=== PATIENT | female | born 1960 | race Caucasian/White ===

== ENCOUNTER 2018-08-10 09:58 | Outpatient (RCR) | payer MEDICAID, SELFPAY ==
[2018-08-10] MEDS: Normal Saline Flush 10 ML SYR IVP (09:55)
[2018-08-10 10:28] LABS: Absolute Basophil Count 0.02 k/cumm (0.0-0.2); Absolute Eosinophil Count 0.08 k/cumm (0.0-0.7); Absolute Lymphocyte Count 1.19 k/cumm (1.2-3.4); Absolute Monocyte Count 0.48 k/cumm (0.11-0.7); Absolute Neutrophil Count 3.82 k/cumm (1.2-6.7); Basophils % 0.4; Eosinophils % 1.4; HCT 33.3 % (36.0-46.0); Lymphocytes % 21.3; Mean Corpuscular Hemoglobin 34.2 pg (27.0-33.0); Mean Corpuscular Volume 103.4 fL (80-95); Mean Platelet Volume 8.3 fL (8.0-11.0); Monocytes % 8.6; Neutrophils % 68.3; Platelet Count 284 x1000/uL (130-400); RBC 3.22 m/cumm (4.00-5.20); RBC Distribution Width 13.2 % (11.7-14.6); White Blood Cell Count 5.59 k/cumm (4.4-10.8)
[2018-08-10 10:41] LABS: ALT 35 U/L (12-78); AST 24 U/L (15-37); Albumin 3.9 g/dL (3.4-5.0); Alkaline Phosphatase 100 U/L (46-116); Anion Gap 8.4 mmol/L (3-11); BUN 14 mg/dL (7-18); Bilirubin, Total 0.4 mg/dL (0.2-1.0); CO2 27.6 mmol/L (21.0-32.0); CREATININE 0.97 mg/dL (0.55-1.02); Calcium 9.4 mg/dL (8.5-10.1); Chloride 106 mmol/L (98-107); Estimated GFR 58.98 (mL/min/1.73m2); Glucose 138 mg/dL (70-100); LDH 179 U/L (81-234); Potassium 3.5 mmol/L (3.5-5.1); Sodium 142 mmol/L (136-145); Total Protein 7.8 g/dL (6.4-8.2)
== END 2018-08-28 23:59 | disposition home or self-care (01) ==
LOC: INF 09:58
PROVIDERS: PCP Nurse Practitioner Gerontology; Visit Provider Internal Medicine Hematology & Oncology
DX: C83.18 Mantle cell lymphoma, lymph nodes of multiple sites (principal); C83.10 Mantle cell lymphoma, unspecified site; Z45.2 Encounter for adjustment and management of vascular access device
CPT/HCPCS: 36591; 80053; 83615; 85025

== ENCOUNTER 2018-08-30 18:53 | Emergency (ER) | payer MEDICAID, SELFPAY ==
[2018-08-30 19:03] VITALS: BP 154/84; PULSE 109; RESP 16; TEMP 36.6; O2SAT 98
[2018-08-30 19:12] LABS: Bilirubin Negative (Negative); Blood Trace-intact (Negative); Clarity Clear; Glucose Negative (Negative); Ketones Negative (Negative); Leukocyte Esterase Small (Negative); Nitrite Negative (Negative); Urobilinogen 0.2 EU/dL (Up TO 0.2)
[2018-08-30] MEDS: Normal Saline 1,000 ML 1000 ML IV (19:26)
--- NOTE | 2018-08-30 19:26 | ED.GENADUL_ITS ---
Discharge Plan Disposition Patient Disposition: HOME Condition: Good Discharge Details Chief Complaint: Urinary Clinical Impression: Acute UTI Primary Care Provider: Paula Patel ED Provider: Micheal Roth Home Meds and New Rx's Prescriptions: New cephalexin [Keflex] 500 mg capsule 500 mg PO BID Qty: 14 RF: 0 No Action bupropion HCl [Wellbutrin XL] 150 mg tablet extended release 24 hr 300 mg PO QAM Qty: 90 RF: 3 multivitamin [Multi-Day] 1 EACH tablet 1 ea PO DAILY RF: 0 acetaminophen [Tylenol Extra Strength] 500 MG tablet 1,000 mg PO daily prn RF: 0 ibuprofen 600 MG tablet 600 mg PO BID prn Qty: 100 RF: 4 melatonin 3 MG tablet,disintegrating 3 mg PO PRN RF: 0 ondansetron [Zofran ODT] 4 MG tablet,disintegrating 4 mg Sublingual PRN PRNRF: 0 acyclovir 400 MG tablet 800 mg PO BID RF: 0 Discharge Instructions Instructions: Urinary Tract Infection in Women (ED) Additional Instructions: Please take the antibiotic as directed. If you notice any worsening of your symptoms, or any new symptoms such as vomiting, diarrhea, fever, chills, shortness of breath, chest pain, numbness, weakness, or fainting , please return immediately to the emergency department for reevaluation. Please follow up with your primary care provider as soon as possible for reassessment and reevaluation. As always, it was a pleasure participating in your medical care today. Referrals: Paula Patel, ANALYTICS LEAD [Primary Care Provider] - Medical Decision Making This is a pleasant 58-year-old female with a past medical history of non-Hodgkin's mantle lymphoma, as well as Rituxan use every 2 months, most recent administration was 2-3 weeks ago. She presents today with urinary frequency. She called her oncologist, and he recommended that she go to an urgent care or her primary care provider tomorrow. However the patient is flying to [place] tomorrow and she felt it would be best to receive care now. Patient denies any systemic symptoms of fever or chills. No flank pain or abdominal pain. She does admit to mild burning and dysuria. She has been neutropenic in the past but not recently. Her heart rate is minimally elevated at 109, however this patient states multiple times that this is a normal baseline. We will get a basic laboratory workup to evaluate for any potential neutropenia, rehydrate her, and evaluate for urinary tract infection. 8:01 PM The patient's urinalysis shows evidence of mild urinary tract infection. Signs and symptoms are not consistent with pyelonephritis. Laboratory workup demonstrates no significant white count, no evidence of bandemia, and no evidence of neutropenia. Her symptoms are well controlled. She has been given a gram of Rocephin here in the emergency department. She will be given Keflex for home use, and 1 pill here for the morning. We discussed red flags for which to return the patient understands. I have extensively reviewed the treatment plan and discharge instructions with the patient. I have addressed all patient concerns at this time. The patient was made aware of what symptoms to monitor for that would warrant a return to the emergency department. Discussed the plan with the patient, they demonstrate verbal understanding and agreement with our assessment and plan at this time. HPI General Date/Time Provider Initiated Documentation: 08/30/18 18:54 . HPI Narrative: This is a 58-year-old female with a past medical history of non-Hodgkin's mantle lymphoma. She takes Rituxan every 2 months, most recent time was 2-3 weeks ago. Past surgical history is positive for colostomy secondary to diverticulitis and subsequent reversal, tonsillectomy, and alpha-1 antitrypsin deficiency. She presents today for urinary frequency and urgency for the last 2 days. She admits to minimal dysuria. She denies any hematuria but states that she has a chronic history of hematuria which is microscopic, she has been followed up and evaluated multiple times by urology with no significant abnormalities. Patient denies any history of recent kidney stones, flank pain, nausea vomiting or diarrhea. She denies any fevers, chills or systemic symptoms. She denies any recent antibiotic use. In the distant past she has had neutropenia but she states that her labs have been very good over the last few months. Patient has no other complaints at this time. Related Data Home Medications Medication Instructions Recorded Confirmed multivitamin [Multi-Day] 1 ea PO DAILY 05/31/14 08/30/18 acetaminophen [Tylenol Extra 1,000 mg PO daily prn tab-cap 12/13/14 08/30/18 Strength] ibuprofen 600 mg PO BID prn #100 tab-cap 06/07/17 08/30/18 ondansetron [Zofran ODT] 4 mg SUBLINGUAL PRN PRN 08/08/17 08/30/18 melatonin 3 mg PO PRN 12/13/17 08/30/18 bupropion HCl XL 150 mg 24 hr 300 mg PO QAM #90 tab 08/25/18 08/30/18 tablet, extended release acyclovir 800 mg PO BID 08/30/18 08/30/18 cephalexin [Keflex] 500 mg PO BID #14 cap 08/30/18 Previous Rx's Medication Instructions Recorded bupropion HCl XL 150 mg 24 hr 300 mg PO QAM #90 tab 08/25/18 tablet, extended release cephalexin [Keflex] 500 mg PO BID #14 cap 08/30/18 Allergies Allergy/AdvReac Type Severity Reaction Status Date / Time doxycycline AdvReac Intermediate Upset Unverified 08/30/18 19:02 Stomach General Stated Complaint: Urinary ERIKA: 4 Review of Systems Review of Systems All systems reviewed & are unremarkable except as noted in HPI and below PFSH Family History Mother Hirgm-0-gegbbecquji deficiency Father Essential hypertension Hyperlipidemia Grandfather Kwcjr-8-vfzcdchnadz deficiency Grandfather Essential hypertension Personal history of malignant neoplasm Heart disease Cerebrovascular accident Grandmother Essential hypertension Heart disease Cerebrovascular accident Grandmother No problems noted. 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 pets and animals: Yes pets and animals: cat(s) and dog(s) Smoking/Tobacco Use Status: Former Tobacco Use alcohol intake: current alcohol intake frequency: a few times a month substance use type: does not use richard/orthodoxy: Orthodoxy special richard needs: No Surgical History Arthroplasty of knee (~02/2006) Bursectomy Colonoscopy - IV Sedation (06/08/16) Incision & Drainage, Abscess or Hematoma (09/23/17) Tonsillectomy and adenoidectomy (06/03/17) Exam Narrative Exam Narrative: 1.Const: Well-nourished, Well-developed, appearing stated age 2.Eyes: PERRL, no conjunctival injection, and symmetrical lids. 3.ENT: Atraumatic external nose and ears. Moist MM. Neck: Symmetric, trachea midline, No thyromegaly. 4.CVS: +S1/S2, No murmurs or gallops. Peripheral pulses 2+ and equal in all extremities. Brisk capillary refill in all extremities. 5.RESP: Unlabored respiratory effort. Clear to auscultation bilaterally. No wheezes rales or rhonchi 6.GI: Soft, Nontender/Nondistended, No hepatosplenomegaly. No guarding or rebound. No flank tenderness, no guarding or rebound. No pelvic or bladder tenderness. 7.MSK: Normocephalic/Atraumatic, Extremities w/o deformity or ttp No cyanosis or clubbing, Normal movement of all extremities 8.Skin: Warm, Dry. No rashes or lesions. 9.Neuro: rangeland management specialist II-XII grossly intact. Sensation grossly intact, no focal neurologic deficits. 10.Psych: (AAO) x3. Appropriate mood and affect Course Vital Signs Temperature 36.6 C 08/30/18 19:03 Pulse 109 H 08/30/18 19:03 Respiratory Rate 16 08/30/18 19:03 Blood Pressure 154/84 H 08/30/18 19:03 Pulse Oximetry 98 08/30/18 19:03 Temperature 36.6 C 08/30/18 19:03 Temperature Source Temporal Artery Scan 08/30/18 19:03 Pulse 109 H 08/30/18 19:03 Respiratory Rate 16 08/30/18 19:03 Respiratory Effort 08/30/18 19:07 Blood Pressure 154/84 H 08/30/18 19:03 Blood Pressure Position Sitting 08/30/18 19:03 Pulse Oximetry 98 08/30/18 19:03 Oxygen Delivery Method Room Air 08/30/18 19:03 Oxygen Flow Rate 0 08/30/18 19:03 Pain Level 0 08/30/18 19:08 Lab/Test Results Lab/Test Results: Laboratory Tests Range/Units 08/30/18 18:59 Urine Color (Yellow) Yellow Urine Clarity Clear Urine pH (5-8) 7.0 Ur Specific Spruce (1.005-1.025) 1.020 Urine Protein (Negative) mg/dL 30 H Urine Ketones (Negative) mg/dL Negative Urine Blood (Negative) Trace-intact H Urine Nitrite (Negative) Negative Urine Bilirubin (Negative) Negative Urine Urobilinogen (Up TO 0.2) EU/dL 0.2 Ur Leukocyte Esterase (Negative) Small H Urine Glucose (Negative) mg/dL Negative
[2018-08-30 19:27] LABS: Absolute Basophil Count 0.03 k/cumm (0.0-0.2); Absolute Eosinophil Count 0.11 k/cumm (0.0-0.7); Absolute Lymphocyte Count 1.73 k/cumm (1.2-3.4); Absolute Neutrophil Count 4.08 k/cumm (1.2-6.7); Basophils % 0.4; Eosinophils % 1.6; HCT 33.6 % (36.0-46.0); HGB 11.2 g/dL (12.0-15.5); Lymphocytes % 25.6; Mean Corp. HGB Concentration 33.3 g/dL (32.0-36.0); Mean Corpuscular Hemoglobin 34.7 pg (27.0-33.0); Mean Platelet Volume 8.2 fL (8.0-11.0); Monocytes % 11.9; Neutrophils % 60.5; Platelet Count 272 x1000/uL (130-400); RBC 3.23 m/cumm (4.00-5.20); RBC Distribution Width 12.6 % (11.7-14.6); White Blood Cell Count 6.75 k/cumm (4.4-10.8)
[2018-08-30 19:49] LABS: C & S Indicated? Yes
[2018-08-30 20:09] LABS: ALT 42 U/L (12-78); AST 28 U/L (15-37); Alkaline Phosphatase 100 U/L (46-116); Anion Gap 7.4 mmol/L (3-11); BUN 15 mg/dL (7-18); Bilirubin, Total 0.3 mg/dL (0.2-1.0); CO2 29.6 mmol/L (21.0-32.0); CREATININE 1.01 mg/dL (0.55-1.02); Calcium 9.6 mg/dL (8.5-10.1); Chloride 102 mmol/L (98-107); Glucose 99 mg/dL (70-100); Potassium 3.5 mmol/L (3.5-5.1); Sodium 139 mmol/L (136-145); Total Protein 7.8 g/dL (6.4-8.2)
[2018-08-30] MEDS: Cephalexin 500 MG CAP PO (20:59)
[2018-08-30 21:04] VITALS: BP 155/92; PULSE 104; RESP 18; TEMP 36.8; O2SAT 98
== END 2018-08-30 21:07 | disposition home or self-care (01) ==
PROVIDERS: Emergency Provider Student in an Organized Health Care Education/Training Program; PCP Nurse Practitioner Gerontology
DX: R39.0 Extravasation of urine (principal); C83.10 Mantle cell lymphoma, unspecified site; Z79.899 Other long term (current) drug therapy; I10 Essential (primary) hypertension
CPT/HCPCS: 36415; 80053; 96361; 96365; 99284; 81003; 81015; 85025; 87086; J0696

== ENCOUNTER 2018-10-19 08:00 | Outpatient (RCR) | payer MEDICAID, SELFPAY ==
[2018-10-19] MEDS: Normal Saline Flush 10 ML SYR IVP (08:30)
[2018-10-19 08:36] LABS: Abs Immature Grans 0.01 k/cumm (0.0-0.09); Absolute Basophil Count 0.02 k/cumm (0.0-0.2); Absolute Eosinophil Count 0.18 k/cumm (0.0-0.7); Absolute Lymphocyte Count 1.06 k/cumm (1.2-3.4); Absolute Monocyte Count 0.76 k/cumm (0.11-0.7); Absolute Neutrophil Count 3.65 k/cumm (1.2-6.7); Basophils % 0.4; Eosinophils % 3.2; HCT 34.9 % (36.0-46.0); HGB 11.7 g/dL (12.0-15.5); Immature Grans % 0.2; Lymphocytes % 18.7; Mean Corp. HGB Concentration 33.5 g/dL (32.0-36.0); Mean Corpuscular Hemoglobin 34.1 pg (27.0-33.0); Mean Corpuscular Volume 101.7 fL (80-95); Mean Platelet Volume 8.4 fL (8.0-11.0); Monocytes % 13.4; Neutrophils % 64.1; Platelet Count 238 x1000/uL (130-400); RBC 3.43 m/cumm (4.00-5.20); RBC Distribution Width 12.7 % (11.7-14.6); White Blood Cell Count 5.68 k/cumm (4.4-10.8)
[2018-10-19 08:47] LABS: ALT 44 U/L (12-78); AST 27 U/L (15-37); Albumin 3.9 g/dL (3.4-5.0); Alkaline Phosphatase 100 U/L (46-116); Anion Gap 8.3 mmol/L (3-11); BUN 16 mg/dL (7-18); Bilirubin, Total 0.4 mg/dL (0.2-1.0); CO2 27.7 mmol/L (21.0-32.0); CREATININE 0.91 mg/dL (0.55-1.02); Calcium 9.6 mg/dL (8.5-10.1); Chloride 104 mmol/L (98-107); Glucose 110 mg/dL (70-100); LDH 166 U/L (81-234); Potassium 3.9 mmol/L (3.5-5.1); Sodium 140 mmol/L (136-145); Total Protein 7.7 g/dL (6.4-8.2)
== END 2018-10-28 23:59 | disposition home or self-care (01) ==
LOC: INF 08:00
PROVIDERS: PCP Nurse Practitioner Gerontology; Visit Provider Internal Medicine Hematology & Oncology
DX: C83.10 Mantle cell lymphoma, unspecified site (principal); R31.29 Other microscopic hematuria; R79.9 Abnormal finding of blood chemistry, unspecified; Z45.2 Encounter for adjustment and management of vascular access device
CPT/HCPCS: 36591; 80053; 83615; 85025

== ENCOUNTER 2018-12-14 01:41 | Outpatient (RCR) | payer MEDICAID, SELFPAY ==
[2018-12-14] MEDS: Normal Saline Flush 10 ML SYR IVP (09:15)
[2018-12-14 09:36] LABS: Abs Immature Grans 0.02 k/cumm (0.0-0.09); Absolute Basophil Count 0.03 k/cumm (0.0-0.2); Absolute Eosinophil Count 0.11 k/cumm (0.0-0.7); Absolute Lymphocyte Count 1.53 k/cumm (1.2-3.4); Absolute Monocyte Count 0.67 k/cumm (0.11-0.7); Absolute Neutrophil Count 4.12 k/cumm (1.2-6.7); Basophils % 0.5; Eosinophils % 1.7; HCT 37.1 % (36.0-46.0); HGB 12.6 g/dL (12.0-15.5); Immature Grans % 0.3; Lymphocytes % 23.6; Mean Corpuscular Hemoglobin 34.2 pg (27.0-33.0); Mean Corpuscular Volume 100.8 fL (80-95); Mean Platelet Volume 8.4 fL (8.0-11.0); Monocytes % 10.3; Neutrophils % 63.6; Platelet Count 315 x1000/uL (130-400); RBC 3.68 m/cumm (4.00-5.20); RBC Distribution Width 12.7 % (11.7-14.6); White Blood Cell Count 6.48 k/cumm (4.4-10.8)
[2018-12-14 09:52] LABS: ALT 33 U/L (12-78); AST 23 U/L (15-37); Albumin 3.5 g/dL (3.4-5.0); Alkaline Phosphatase 104 U/L (46-116); Anion Gap 12.4 mmol/L (3-11); BUN 21 mg/dL (7-18); Bilirubin, Total 0.4 mg/dL (0.2-1.0); CO2 26.6 mmol/L (21.0-32.0); CREATININE 1.18 mg/dL (0.55-1.02); Calcium 9.9 mg/dL (8.5-10.1); Chloride 102 mmol/L (98-107); Estimated GFR 47.05 (mL/min/1.73m2); Glucose 116 mg/dL (70-100); LDH 197 U/L (81-234); Sodium 141 mmol/L (136-145); Total Protein 8.1 g/dL (6.4-8.2)
== END 2018-12-29 23:59 | disposition home or self-care (01) ==
LOC: INF 01:41
PROVIDERS: PCP Nurse Practitioner Gerontology; Visit Provider Internal Medicine Hematology & Oncology
DX: C83.10 Mantle cell lymphoma, unspecified site (principal); R31.29 Other microscopic hematuria; R79.9 Abnormal finding of blood chemistry, unspecified; Z45.2 Encounter for adjustment and management of vascular access device
CPT/HCPCS: 36591; 80053; 83615; 85025

== ENCOUNTER 2019-01-11 01:57 | Outpatient (RCR) | payer OTHER, SELFPAY ==
[2019-01-11] MEDS: Normal Saline Flush 10 ML SYR IVP (14:05)
[2019-01-11] MEDS: Heparin 500 UNITS/5 ML SYRINGE IV (14:05)
== END 2019-01-26 23:59 | disposition home or self-care (01) ==
LOC: INF 01:57
PROVIDERS: PCP Nurse Practitioner Family; Visit Provider Internal Medicine Hematology & Oncology
DX: Z45.2 Encounter for adjustment and management of vascular access device (principal)
CPT/HCPCS: 96523

== ENCOUNTER 2019-02-08 16:08 | Outpatient (REF) | payer OTHER, SELFPAY ==
[2019-02-08 21:23] LABS: Bilirubin Negative (Negative); Blood Trace-intact (Negative); Clarity Clear; Glucose Negative (Negative); Ketones Negative (Negative); Leukocyte Esterase Negative (Negative); Nitrite Negative (Negative); Specific Gravity 1.025 (1.005-1.025); Urobilinogen 0.2 EU/dL (Up TO 0.2); pH 6.5 (5-8)
[2019-02-08 21:56] LABS: Bacteria Few HPF (Negative); Casts Negative LPF (Negative); Crystals Negative HPF (Negative); Epithelial Cells Negative HPF (Negative); Mucus Negative (Negative); Other Cells Negative (Negative); WBC Negative HPF (0-5)
[2019-02-08 21:57] LABS: C & S Indicated? No
== END 2019-02-08 16:28 ==
LOC: LBN 16:08
PROVIDERS: PCP Nurse Practitioner Family; Visit Provider Nurse Practitioner Family
DX: R31.9 Hematuria, unspecified (principal)
CPT/HCPCS: 81003; 81015

== ENCOUNTER 2019-02-16 13:30 | Outpatient (RCR) | payer OTHER, SELFPAY ==
[2019-02-15] MEDS: Normal Saline Flush 10 ML SYR IVP (08:40)
[2019-02-15 09:12] LABS: Absolute Basophil Count 0.02 k/cumm (0.0-0.2); Absolute Eosinophil Count 0.05 k/cumm (0.0-0.7); Absolute Lymphocyte Count 1.23 k/cumm (1.2-3.4); Absolute Monocyte Count 0.47 k/cumm (0.11-0.7); Absolute Neutrophil Count 2.62 k/cumm (1.2-6.7); Basophils % 0.5; Eosinophils % 1.1; HCT 37.7 % (36.0-46.0); HGB 12.5 g/dL (12.0-15.5); Mean Corp. HGB Concentration 33.2 g/dL (32.0-36.0); Mean Corpuscular Hemoglobin 33.3 pg (27.0-33.0); Mean Corpuscular Volume 100.5 fL (80-95); Mean Platelet Volume 8.7 fL (8.0-11.0); Monocytes % 10.7; Neutrophils % 59.7; Platelet Count 253 x1000/uL (130-400); RBC 3.75 m/cumm (4.00-5.20); RBC Distribution Width 12.7 % (11.7-14.6); White Blood Cell Count 4.39 k/cumm (4.4-10.8)
[2019-02-15 09:24] LABS: Hemoglobin A1C 5.9 % (4.5-6.2)
[2019-02-15 09:37] LABS: ALT 38 U/L (12-78); AST 25 U/L (15-37); Albumin 3.9 g/dL (3.4-5.0); Alkaline Phosphatase 103 U/L (46-116); Anion Gap 8.1 mmol/L (3-11); BUN 22 mg/dL (7-18); Bilirubin, Total 0.4 mg/dL (0.2-1.0); CO2 27.9 mmol/L (21.0-32.0); CREATININE 1.04 mg/dL (0.55-1.02); Calcium 9.3 mg/dL (8.5-10.1); Chloride 106 mmol/L (98-107); Cholesterol 222 mg/dL (50-200); Estimated GFR 54.43 (mL/min/1.73m2); Glucose 94 mg/dL (70-100); HDL Cholesterol 59 mg/dL (40-60); LDL CHOLESTEROL 136 mg/dL (<100); Potassium 4.1 mmol/L (3.5-5.1); Sodium 142 mmol/L (136-145); Total Protein 7.5 g/dL (6.4-8.2); Triglyceride 138 mg/dL (30-150)
[2019-02-15 09:52] LABS: FREE T4 0.83 ng/dL (0.76-1.46); LDH 169 U/L (81-234)
[2019-02-16] MEDS: Heparin 500 UNITS/5 ML SYRINGE IV (14:00)
[2019-02-16] MEDS: Normal Saline Flush 10 ML SYR IVP (14:00)
== END 2019-02-26 23:59 | disposition home or self-care (01) ==
LOC: INF 13:30
PROVIDERS: PCP Nurse Practitioner Family; Visit Provider Internal Medicine Hematology & Oncology
DX: C83.10 Mantle cell lymphoma, unspecified site (principal); R31.29 Other microscopic hematuria; R79.9 Abnormal finding of blood chemistry, unspecified; E78.5 Hyperlipidemia, unspecified; Z45.2 Encounter for adjustment and management of vascular access device; R31.9 Hematuria, unspecified
CPT/HCPCS: 36591; 80053; 80061; 83721; 96523; 81003; 81015; 83036; 83615; 84439; 84443; 85025

== ENCOUNTER 2019-02-20 15:37 | Outpatient (REF) | payer OTHER, SELFPAY ==
[2019-02-20 18:33] LABS: Bilirubin Negative (Negative); Blood Negative (Negative); Clarity Clear; Glucose Negative (Negative); Ketones Negative (Negative); Leukocyte Esterase Negative (Negative); Nitrite Negative (Negative); Specific Gravity 1.015 (1.005-1.025); Urobilinogen 0.2 EU/dL (Up TO 0.2)
== END 2019-02-20 15:57 ==
LOC: LBN 15:37
PROVIDERS: PCP Nurse Practitioner Family; Visit Provider Nurse Practitioner Family
DX: R31.29 Other microscopic hematuria (principal)
CPT/HCPCS: 81003; 87086

== ENCOUNTER 2019-03-01 03:38 | Outpatient (CLI) | payer OTHER, SELFPAY ==
--- NOTE | 2019-03-01 11:58 | DI.MAMMO_ITS ---
SYMPTOM/DIAGNOSIS: MAMMOGRAMS: Mammograms were interpreted according to the usual protocol including computer analysis with CAD system, tomosynthesis and C view imaging. The breast tissue is of moderate radiodensity. There is no evidence of a right or left breast mass. There are no suspicious calcifications. A radiodensity projected over the superior portion of the right breast is presumed to represent a prominent lymph node. SUMMARY: No evidence of malignancy, Category I, yearly screening mammography is recommended. Breast density Category B. MQSA ASSESSMENT OF FINDINGS: Negative. Category 1. Patient will receive a letter notifying them of these results. BI-RADS category B. There are scattered areas of fibroglandular density.
== END 2019-03-01 03:58 ==
PROVIDERS: PCP Nurse Practitioner Family; Visit Provider Nurse Practitioner Family
DX: Z12.31 Encounter for screening mammogram for malignant neoplasm of breast (principal)
CPT/HCPCS: 77063; 77067

== ENCOUNTER 2019-03-08 16:00 | Outpatient (REF) | payer OTHER, SELFPAY ==
--- NOTE | 2019-03-08 15:40 | PAPFT_PTH ---
PATIENT: Elenita Parikh LOC: [facility] U#:[id number] AGE/SX: 58/F ROOM: RE03/08/[address]: Ary Canseco : 1960 BED: DIS: 03/08/2019 SPEC #: [id number] RECD: 03/08/19 18:08 STATUS: LOBO BHUPINDER #: [id number] CAROL: 03/08/19 15:[address]: Ary Canseco DEPT: [facility] Cytology RECD BY: Virgen Cm ENTERED: 03/08/19 18:09 SP TYPE: PAPFT DONNA DR: Azul Weeks, WINDOW MACHINE OPERATOR Tissues: 1 - CX/ENDOCX FOR PAP SMEARS Procedures: PAP THIN PREP/UVM Screening HPV DNA PROBE Comments: [id number]
== END 2019-03-08 16:20 ==
LOC: LBN 16:00
PROVIDERS: PCP Nurse Practitioner Family; Visit Provider Obstetrics & Gynecology Gynecology
DX: Z12.4 Encounter for screening for malignant neoplasm of cervix (principal); Z11.51 Encounter for screening for human papillomavirus (HPV)
CPT/HCPCS: 88142; 87624

== ENCOUNTER 2019-03-22 01:51 | Outpatient (RCR) | payer OTHER, SELFPAY ==
[2019-03-22] MEDS: Heparin 500 UNITS/5 ML SYRINGE IV (09:45)
[2019-03-22] MEDS: Normal Saline Flush 10 ML SYR IVP (09:45)
== END 2019-03-28 23:59 | disposition home or self-care (01) ==
LOC: INF 01:51
PROVIDERS: PCP Nurse Practitioner Family; Visit Provider Internal Medicine Hematology & Oncology
DX: Z45.2 Encounter for adjustment and management of vascular access device (principal)
CPT/HCPCS: 96523

== ENCOUNTER 2019-04-12 01:39 | Outpatient (RCR) | payer OTHER, SELFPAY ==
[2019-04-12] MEDS: Normal Saline Flush 10 ML SYR IVP (08:49)
[2019-04-12 08:56] LABS: Abs Immature Grans 0.02 k/cumm (0.0-0.09); Absolute Basophil Count 0.02 k/cumm (0.0-0.2); Absolute Eosinophil Count 0.06 k/cumm (0.0-0.7); Absolute Lymphocyte Count 1.48 k/cumm (1.2-3.4); Absolute Monocyte Count 0.75 k/cumm (0.11-0.7); Absolute Neutrophil Count 7.23 k/cumm (1.2-6.7); Basophils % 0.2; Eosinophils % 0.6; HCT 36.6 % (36.0-46.0); HGB 12.5 g/dL (12.0-15.5); Immature Grans % 0.2; Lymphocytes % 15.5; Mean Corp. HGB Concentration 34.2 g/dL (32.0-36.0); Mean Corpuscular Hemoglobin 34.2 pg (27.0-33.0); Mean Corpuscular Volume 100.3 fL (80-95); Monocytes % 7.8; Neutrophils % 75.7; Platelet Count 261 x1000/uL (130-400); RBC 3.65 m/cumm (4.00-5.20); White Blood Cell Count 9.56 k/cumm (4.4-10.8)
[2019-04-12 09:09] LABS: ALT 40 U/L (12-78); AST 23 U/L (15-37); Albumin 3.9 g/dL (3.4-5.0); Alkaline Phosphatase 109 U/L (46-116); Anion Gap 9.2 mmol/L (3-11); BUN 22 mg/dL (7-18); Bilirubin, Total 0.5 mg/dL (0.2-1.0); CO2 26.8 mmol/L (21.0-32.0); CREATININE 0.98 mg/dL (0.55-1.02); Calcium 9.3 mg/dL (8.5-10.1); Chloride 104 mmol/L (98-107); Estimated GFR 58.29 (mL/min/1.73m2); Glucose 145 mg/dL (70-100); LDH 182 U/L (81-234); Potassium 3.9 mmol/L (3.5-5.1); Sodium 140 mmol/L (136-145); Total Protein 7.7 g/dL (6.4-8.2)
== END 2019-04-28 23:59 | disposition home or self-care (01) ==
LOC: INF 01:39
PROVIDERS: PCP Nurse Practitioner Family; Visit Provider Internal Medicine Hematology & Oncology
DX: C83.10 Mantle cell lymphoma, unspecified site (principal); R31.29 Other microscopic hematuria; R79.0 Abnormal level of blood mineral; Z45.2 Encounter for adjustment and management of vascular access device
CPT/HCPCS: 36591; 80053; 83615; 85025

== ENCOUNTER 2019-05-09 10:37 | Outpatient (RCR) | payer OTHER, SELFPAY ==
[2019-05-09] MEDS: Heparin 500 UNITS/5 ML SYRINGE IV (12:45)
[2019-05-09] MEDS: Normal Saline Flush 10 ML SYR IVP (12:45)
== END 2019-05-28 23:59 | disposition home or self-care (01) ==
LOC: INF 10:37
PROVIDERS: PCP Nurse Practitioner Family; Visit Provider Internal Medicine Hematology & Oncology
DX: C83.10 Mantle cell lymphoma, unspecified site (principal); R31.29 Other microscopic hematuria; R79.9 Abnormal finding of blood chemistry, unspecified; Z45.2 Encounter for adjustment and management of vascular access device
CPT/HCPCS: 96523

== ENCOUNTER 2019-06-14 08:34 | Outpatient (RCR) | payer OTHER, SELFPAY ==
[2019-06-14] MEDS: Normal Saline Flush 10 ML SYR IVP (08:53)
[2019-06-14] MEDS: Heparin 500 UNITS/5 ML SYRINGE IVP (08:54)
[2019-06-14 09:02] LABS: Abs Immature Grans 0.01 k/cumm (0.0-0.09); Absolute Basophil Count 0.03 k/cumm (0.0-0.2); Absolute Eosinophil Count 0.05 k/cumm (0.0-0.7); Absolute Lymphocyte Count 1.42 k/cumm (1.2-3.4); Absolute Monocyte Count 0.53 k/cumm (0.11-0.7); Absolute Neutrophil Count 2.88 k/cumm (1.2-6.7); Basophils % 0.6; HCT 37.2 % (36.0-46.0); HGB 12.7 g/dL (12.0-15.5); Immature Grans % 0.2; Lymphocytes % 28.9; Mean Corp. HGB Concentration 34.1 g/dL (32.0-36.0); Mean Corpuscular Hemoglobin 33.9 pg (27.0-33.0); Mean Corpuscular Volume 99.2 fL (80-95); Mean Platelet Volume 9.3 fL (8.0-11.0); Monocytes % 10.8; Neutrophils % 58.5; Platelet Count 239 x1000/uL (130-400); RBC 3.75 m/cumm (4.00-5.20); RBC Distribution Width 12.5 % (11.7-14.6); White Blood Cell Count 4.92 k/cumm (4.4-10.8)
[2019-06-14 09:19] LABS: ALT 41 U/L (12-78); AST 25 U/L (15-37); Albumin 3.8 g/dL (3.4-5.0); Alkaline Phosphatase 104 U/L (46-116); Anion Gap 10.1 mmol/L (3-11); BUN 20 mg/dL (7-18); Bilirubin, Total 0.5 mg/dL (0.2-1.0); CO2 26.9 mmol/L (21.0-32.0); CREATININE 0.97 mg/dL (0.55-1.02); Calcium 9.6 mg/dL (8.5-10.1); Chloride 105 mmol/L (98-107); Estimated GFR 58.78 (mL/min/1.73m2); Glucose 126 mg/dL (70-100); LDH 175 U/L (81-234); Potassium 3.7 mmol/L (3.5-5.1); Sodium 142 mmol/L (136-145); Total Protein 7.6 g/dL (6.4-8.2)
== END 2019-06-28 23:59 | disposition home or self-care (01) ==
LOC: INF 08:34
PROVIDERS: PCP Nurse Practitioner Family; Visit Provider Internal Medicine Hematology & Oncology
DX: C83.10 Mantle cell lymphoma, unspecified site (principal); Z45.2 Encounter for adjustment and management of vascular access device
CPT/HCPCS: 36591; 80053; 96523; 83615; 85025

== ENCOUNTER 2019-08-16 02:02 | Outpatient (RCR) | payer OTHER, SELFPAY ==
[2019-08-16 08:51] LABS: Absolute Basophil Count 0.02 k/cumm (0.0-0.2); Absolute Eosinophil Count 0.09 k/cumm (0.0-0.7); Absolute Lymphocyte Count 1.41 k/cumm (1.2-3.4); Absolute Monocyte Count 0.51 k/cumm (0.11-0.7); Basophils % 0.4; Eosinophils % 1.9; HCT 39.1 % (36.0-46.0); HGB 13.2 g/dL (12.0-15.5); Lymphocytes % 29.8; Mean Corp. HGB Concentration 33.8 g/dL (32.0-36.0); Mean Corpuscular Hemoglobin 33.2 pg (27.0-33.0); Mean Corpuscular Volume 98.5 fL (80-95); Mean Platelet Volume 8.7 fL (8.0-11.0); Monocytes % 10.8; Neutrophils % 57.1; Platelet Count 252 x1000/uL (130-400); RBC 3.97 m/cumm (4.00-5.20); RBC Distribution Width 13.1 % (11.7-14.6); White Blood Cell Count 4.73 k/cumm (4.4-10.8)
[2019-08-16] MEDS: Normal Saline Flush 10 ML SYR IVP (08:51)
[2019-08-16 09:11] LABS: ALT 33 U/L (14-59); AST 22 U/L (15-37); Albumin 3.9 g/dL (3.4-5.0); Alkaline Phosphatase 97 U/L (46-116); Anion Gap 10.4 mmol/L (3-11); BUN 19 mg/dL (7-18); Bilirubin, Total 0.4 mg/dL (0.2-1.0); CO2 26.6 mmol/L (21.0-32.0); CREATININE 1.03 mg/dL (0.55-1.02); Calcium 9.3 mg/dL (8.5-10.1); Chloride 107 mmol/L (98-107); Estimated GFR 54.85 (mL/min/1.73m2); Glucose 107 mg/dL (70-100); LDH 179 U/L (81-234); Sodium 144 mmol/L (136-145); Total Protein 7.5 g/dL (6.4-8.2)
== END 2019-08-28 23:59 | disposition home or self-care (01) ==
LOC: INF 02:02
PROVIDERS: PCP Nurse Practitioner Family; Visit Provider Internal Medicine Hematology & Oncology
DX: C83.10 Mantle cell lymphoma, unspecified site (principal); Z45.2 Encounter for adjustment and management of vascular access device
CPT/HCPCS: 36591; 80053; 83615; 85025

== ENCOUNTER 2019-09-12 01:55 | Outpatient (RCR) | payer OTHER, SELFPAY ==
[2019-09-12] MEDS: Normal Saline Flush 10 ML SYR IVP (08:18)
[2019-09-12] MEDS: Heparin 500 UNITS/5 ML SYRINGE IV (08:18)
== END 2019-09-28 23:59 | disposition home or self-care (01) ==
LOC: INF 01:55
PROVIDERS: PCP Nurse Practitioner Family; Visit Provider Internal Medicine Hematology & Oncology
DX: Z45.2 Encounter for adjustment and management of vascular access device (principal)
CPT/HCPCS: 96523

== ENCOUNTER 2019-10-18 00:59 | Outpatient (RCR) | payer OTHER, SELFPAY ==
[2019-10-18 08:52] LABS: Absolute Basophil Count 0.02 k/cumm (0.0-0.2); Absolute Eosinophil Count 0.07 k/cumm (0.0-0.7); Absolute Lymphocyte Count 1.39 k/cumm (1.2-3.4); Absolute Monocyte Count 0.67 k/cumm (0.11-0.7); Absolute Neutrophil Count 2.83 k/cumm (1.2-6.7); Basophils % 0.4; Eosinophils % 1.4; HCT 39.3 % (36.0-46.0); HGB 13.1 g/dL (12.0-15.5); Lymphocytes % 27.9; Mean Corp. HGB Concentration 33.3 g/dL (32.0-36.0); Mean Corpuscular Hemoglobin 33.1 pg (27.0-33.0); Mean Corpuscular Volume 99.2 fL (80-95); Mean Platelet Volume 8.8 fL (8.0-11.0); Monocytes % 13.5; Neutrophils % 56.8; Platelet Count 284 x1000/uL (130-400); RBC 3.96 m/cumm (4.00-5.20); RBC Distribution Width 12.5 % (11.7-14.6); White Blood Cell Count 4.98 k/cumm (4.4-10.8)
[2019-10-18] MEDS: Normal Saline Flush 10 ML SYR IVP (09:02)
[2019-10-18] MEDS: Heparin 500 UNITS/5 ML SYRINGE IV (09:02)
[2019-10-18 09:04] LABS: ALT 34 U/L (14-59); AST 24 U/L (15-37); Albumin 3.9 g/dL (3.4-5.0); Alkaline Phosphatase 109 U/L (46-116); Anion Gap 8.7 mmol/L (3-11); BUN 19 mg/dL (7-18); Bilirubin, Total 0.4 mg/dL (0.2-1.0); CO2 27.3 mmol/L (21.0-32.0); CREATININE 1.02 mg/dL (0.55-1.02); Calcium 9.2 mg/dL (8.5-10.1); Chloride 105 mmol/L (98-107); Estimated GFR 55.47 (mL/min/1.73m2); Glucose 111 mg/dL (74-106); LDH 172 U/L (81-234); Sodium 141 mmol/L (136-145); Total Protein 7.7 g/dL (6.4-8.2)
== END 2019-10-28 23:59 | disposition home or self-care (01) ==
LOC: INF 00:59
PROVIDERS: PCP Nurse Practitioner Family; Visit Provider Internal Medicine Hematology & Oncology
DX: C83.10 Mantle cell lymphoma, unspecified site (principal); Z45.2 Encounter for adjustment and management of vascular access device
CPT/HCPCS: 36591; 80053; 96523; 83615; 85025

== ENCOUNTER 2019-11-20 08:21 | Outpatient (RCR) | payer OTHER, SELFPAY ==
[2019-11-20] MEDS: Normal Saline Flush 10 ML SYR 60 ML IVP (11:30)
[2019-11-20] MEDS: Heparin 500 UNITS/5 ML SYRINGE ×2 (11:30)
== END 2019-11-28 23:59 | disposition home or self-care (01) ==
LOC: INF 08:21
PROVIDERS: PCP Nurse Practitioner Family; Visit Provider Internal Medicine Hematology & Oncology
DX: Z45.2 Encounter for adjustment and management of vascular access device (principal)
CPT/HCPCS: 96523

== ENCOUNTER 2019-11-24 06:11 | Day surgery (SDC) | payer OTHER, SELFPAY ==
[2019-11-24 06:22] VITALS: BP 114/74; PULSE 67; RESP 16; TEMP 36.7; O2SAT 98
[2019-11-24] MEDS: Lactated Ringers 1,000 ML 80 ML IV (06:57)
--- NOTE | 2019-11-24 07:16 | HPE_ITS ---
Date of service: 11/24/19 Time of Service: 07:17 Assessment and Plan Assessment and plan (1) Hallux valgus (acquired), right foot: Start date: 11/24/19 Start time: 07:22 Status: Acute Assessment and plan: 59-year-old female's been brought to [facility] H day surgery for surgical repair of her right bunion deformity. She understands risks and complications of surgery pertaining to pain, scarring, infection, overcorrection, under correction, malunion, nonunion, delayed union of the osteotomy. The potential for revisional procedures and/or problems with the retained hardware discussed. All questions were answered in detail. Informed consent has been obtained. History of Present Illness History of Present Illness Chief Complaint: 59-year-old with painful right bunion deformity. Narrative: 59-year-old female with progressive discomfort associated with a right bunion deformity which is now interfering with shoe gear, ambulation and daily activities. Nonoperative measures have failed to provide lasting relief of symptoms. She is seeking surgical repair. 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 nl paps since. Mhhby-7-myegmkucvbi deficiency (Chronic) PiMS Phenotype Depressive disorder (Chronic) 2017 son - overdose from opiates Diverticulosis (Chronic 2015) Sigmoid and descending colon. Required colostomy x 10mo to treat ruptured diverticulum Essential hypertension (Chronic 05/31/14) Generalized anxiety disorder (Chronic) Hyperlipidemia (Chronic) Mantle cell lymphoma (Chronic 05/2017) S/p 6 cycles of [place] Regimen chemo and autologous stem cell transplant 01/16 Port-A-Cath in place (Acute) Right subclavian Prediabetes (Chronic ~01/2019) Tubular adenoma of colon (Inactive 07/09/17) Surgical History H/O autologous stem cell transplant (Inactive 01/25/18) For mantle cell lymphoma H/O bursectomy (Acute ~02/2006) Left knee History of colostomy reversal (Inactive 06/28/18) History of partial colectomy (Inactive 08/14/17) D/t perforated diverticulitis S/P colonoscopy (Acute 06/08/16) S/P LEEP (loop electrosurgical excision procedure) (Inactive 02/06/15) S/P tonsillectomy and adenoidectomy (Acute 06/03/17) Family History Mother , at 54 of alpha-1 antitrypsin deficiency Xngfq-0-azfgaxsktus deficiency Father Essential hypertension Hyperlipidemia Prostate cancer Son , at 28 of carfentanil overdose in 2017 Substance abuse Maternal Grandfather , at 58 of alpha-1 antitrypsin deficiency complications Ghgfj-9-zxbiywyzeeq deficiency Liver failure Maternal Grandmother , at 85 Essential hypertension Heart disease Stroke Myocardial infarction Paternal Grandfather Essential hypertension Heart disease Hyperlipidemia Stroke Prostate cancer Paternal Grandmother No problems noted. 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 Pets and animals: Yes Pets and animals: cat(s) and dog(s) Sexually active: No Do you think of yourself as: straight/heterosexual Current gender identity: female What is your relationship status?: How often do you talk on the phone with friends or family?: once per week How often do you get together with friends or relatives?: once per week How often do you attend temple or evangelical services?: decline to answer Do you belong to any clubs or organized social groups?: no Panel score (0-1 are the most socially isolated patients): 0 What type of physical activity do you participate in: none Duration: 30-45 minutes/day Frequency: 1-2 times per week Swathi/Congregation: Christianity Special swathi needs: No Seatbelt use: always Helmet use: Yes Drive intox or ride w/intox driver license examiner: No Do you feel safe at home: Yes Do you feel safe in your relationship?: Yes Additional Social history: Patient currently is not in relationship. She has good family support and a network of friends. Female Reproductive History Menstrual Menopause type: natural Date of menopause: 11/29/07 History History 2 Para 1 Hx # Term Pregnancies Multiple births Hx # Pregnancies Ectopic pregnancies AB induced 1 Hx Number of Living Children 0 AB spontaneous Meds Home Medications and Allergies Home Medications Medication Instructions Recorded Confirmed Type multivitamin [Multi-Day] 1 ea PO DAILY 05/31/14 11/24/19 History ibuprofen 600 mg PO BID prn #100 tab-cap 06/07/17 11/24/19 History melatonin 3 mg PO PRN 12/13/17 11/24/19 History acyclovir 400 mg tablet 400 mg PO BID 04/16/19 11/24/19 History hhuuautrn-sukqsci-xmrum acid 1 tab PO DAILY 11/24/19 11/24/19 History ondansetron 4 mg PO Q8H PRN 11/24/19 11/24/19 History Allergies Allergy/AdvReac Type Severity Reaction Status Date / Time doxycycline AdvReac Intermediate Upset Unverified 11/24/19 06:19 Stomach, vomiting Exam Narrative Exam Narrative: 59-year-old female with symptomatic right bunion deformity. Head is normocephalic Eyes PERRLA Hearing is adequate Uvular is midline, airway looks assessable Heart had regular rate and rhythm without gallops rubs or murmurs noted. Lung schmitt were clear Abdomen is soft and nontender. Peripheral pulses are palpable at the ankle minus 2 out of 4 bilaterally, CFT is under 3 seconds to all toes. No peripheral edema Skin is grossly intact, no suspicious moles or lesions Muscle groups are 5 out of 5 bilaterally Skeletal exam reveals a moderate right HAV deformity. Large medial bump is appreciated with periarticular tenderness on direct palpation. Valgus rotation of the hallux is noted. Sesamoids appear asymptomatic to direct palpation. Neurologically grossly intact, toes are downgoing, no deficits noted Results Last Vital Signs Temp 36.7 C 11/24/19 06:22 Pulse 67 11/24/19 06:22 Resp 16 11/24/19 06:22 BP 114/74 11/24/19 06:22 Pulse Ox 98 11/24/19 06:22
[2019-11-24] MEDS: ceFAZolin 1 GM/50 ML BAG IVPB (07:33)
[2019-11-24] MEDS: Bupivacaine 0.5% Pres-Free 30 ML VIAL (07:38)
[2019-11-24] MEDS: Lidocaine 1% Pres-Free 5 ML VIAL (07:38)
[2019-11-24] MEDS: Dexamethasone 4 MG/ML VIAL (08:33)
--- NOTE | 2019-11-24 08:42 | W.PM.DSUDISC ---
Discharge Plan Disposition Patient Disposition: HOME Condition: Good Discharge Details Reason For Visit: bunionectomy right foot Attending Provider: Sivakumar Butts Primary Care Provider: Azul Weeks Home Meds and New Rx's Prescriptions: New hydrocodone-acetaminophen [[place]] 5-325 mg tablet 1 tab PO Q6H PRN (Reason: post op pain) Qty: 10 RF: 0 ibuprofen 600 mg tablet 600 mg PO Q6H PRN (Reason: pain and inflamation) Qty: 60 RF: 1 Continued multivitamin [Multi-Day] 1 EACH tablet 1 ea PO DAILY RF: 0 ibuprofen 600 MG tablet 600 mg PO BID prn Qty: 100 RF: 4 melatonin 3 MG tablet,disintegrating 3 mg PO PRN RF: 0 acyclovir 400 mg tablet 400 mg PO BID RF: 0 ondansetron 4 mg Tablet,Disintegrating 4 mg PO Q8H PRNRF: 0 wwbitebkq-bnacrwh-ileol acid 400-200-1 mg Tablet 1 tab PO DAILY RF: 0 Discharge Instructions Activity:: Elevate Remove Dressings/Wound Care:: Do Not Remove Shower/Bathe:: Cover Discharge Orders Discharge Orders: Discharge Order (Routine); Ordered 11/24/19 Ordered By: Sivakumar Butts DS: Diagnosis Discharge Diagnosis (1) Hallux valgus (acquired), right foot: Status: Acute
[2019-11-24 09:17] VITALS: BP 110/63; PULSE 53; RESP 16; TEMP 36.5; O2SAT 96
[2019-11-24 09:34] VITALS: BP 125/74; PULSE 57; RESP 16; TEMP 36.6; O2SAT 97
--- NOTE | 2019-11-24 11:55 | ROE_ITS ---
DATE OF PROCEDURE: November 24, 2019 PREOPERATIVE DIAGNOSIS: Right HAV deformity. POSTOPERATIVE DIAGNOSIS: Same. PROCEDURE: Boris-type bunionectomy with fibular sesamoidectomy, internal fixation 2.7 cortical scre ws x2. SURGEON: Sivakumar Butts D.P.M. ANESTHESIA: IV General. ANESTHESIA PROVIDER: Simon Rich CRNA OPERATIVE INDICATIONS: 59-year-old female with chronic pain and progressive disability associated wi th a right bunion deformity. Nonoperative treatments have failed to provide lasting relief of sympto ms. Kwong understands risks and complications of surgery pertaining to pain, scarring, infection, st iffness of the joint, malunion, nonunion, delayed union of the osteotomy, overcorrection or undercorr ection of the deformity potentially requiring revisional procedures. Informed consent has been obtai marybeth. No promises made to the final outcome of surgery. REPORT OF OPERATION: The patient was brought to the operative suite and placed in the supine positio n where the right foot is prepped and draped in the usual sterile podiatric fashion. A time-out was performed by protocol. Attention was now directed to the right foot, which was exsanguinated, a well-padded ankle tourniquet inflated 250 mmHg. Attention was directed to the first MPJ where a 5 cm incision was made dorsal me dially, parallel to the EHL tendon. The incision was deepened in controlled depth fashion; hemostasi s acquired by electrocautery. Dissection was carried down to the joint capsule. Significant contrac ture along the lateral aspect of the joint was appreciated. A lateral dissection was performed, incl uding an adductor tendon release, lateral capsulotomy. The fibular sesamoid was noted to be on the l ateral aspect of the metatarsal head. I did release the lateral contractures, mobilized the sesamoid and initially thought it could remain in the wound. Attention was now directed medially and an inverted-L capsulotomy performed. The joint capsule was r eflected. The articular cartilage appeared to be in good condition. A large medial hyperostosis was appreciated. With power instrumentation, the medial hyperostosis from the first metatarsal head was resected. A long dorsal wing offset-V osteotomy was then performed. I wasn't able to translocate t he first metatarsal head due to impingement of the fibular sesamoid, so I went back to the lateral si de of the joint, excised the fibular sesamoid without difficulty. Now I was able to translocate the first metatarsal head laterally, impacted it in its corrected position and fixated it with 2.7 Synthe s cortical screws. Good stability and correction was appreciated. The medial shelf was resected; al l rough and bony edges rasped smooth. Copious irrigation was performed. The medial joint capsule wa s repaired, after performing a medial capsulotomy, utilizing #3-0 Vicryl. The subcutaneous layer was brought together with simple interrupted suture #4-0 Vicryl and a running subcuticular stitch of #4- 0 Monocryl was used to coapt the skin. Four milligrams of dexamethasone phosphate was infused deeply into the wound. Mastisol, half-inch Steri-Strips were applied, followed by Xeroform, gauze fluff co mpression dressings. The tourniquet was released at fifty-four minutes with vascularity returning im mediately to all toes. Elenita left the OR with vital signs stable, vascular status intact. She will be followed by me in the office next week. cc: LEWIS Cook
== END 2019-11-24 10:00 | disposition home or self-care (01) ==
PROVIDERS: PCP Nurse Practitioner Family; Visit Provider Podiatrist
PROC: (CPT 28292; principal; 2019-11-24 07:30)
DX: M20.11 Hallux valgus (acquired), right foot (principal); M21.611 Bunion of right foot; I10 Essential (primary) hypertension
CPT/HCPCS: 28292; NC; J0690; J1100; J1885; J2250; J2405; J3010

== ENCOUNTER 2019-12-13 00:44 | Outpatient (RCR) | payer OTHER, SELFPAY ==
[2019-12-13] MEDS: Normal Saline Flush 10 ML SYR IVP (08:46)
[2019-12-13 08:52] LABS: Absolute Basophil Count 0.02 k/cumm (0.0-0.2); Absolute Eosinophil Count 0.06 k/cumm (0.0-0.7); Absolute Monocyte Count 0.57 k/cumm (0.11-0.7); Absolute Neutrophil Count 3.04 k/cumm (1.2-6.7); Basophils % 0.4; Eosinophils % 1.2; HCT 38.2 % (36.0-46.0); HGB 12.7 g/dL (12.0-15.5); Lymphocytes % 26.1; Mean Corp. HGB Concentration 33.2 g/dL (32.0-36.0); Mean Corpuscular Hemoglobin 32.9 pg (27.0-33.0); Mean Platelet Volume 8.9 fL (8.0-11.0); Monocytes % 11.4; Neutrophils % 60.9; Platelet Count 266 x1000/uL (130-400); RBC 3.86 m/cumm (4.00-5.20); RBC Distribution Width 12.7 % (11.7-14.6); White Blood Cell Count 4.99 k/cumm (4.4-10.8)
[2019-12-13 09:14] LABS: ALT 32 U/L (14-59); AST 24 U/L (15-37); Albumin 3.7 g/dL (3.4-5.0); Alkaline Phosphatase 97 U/L (46-116); Anion Gap 7.1 mmol/L (3-11); BUN 19 mg/dL (7-18); Bilirubin, Total 0.5 mg/dL (0.2-1.0); CO2 26.9 mmol/L (21.0-32.0); CREATININE 0.81 mg/dL (0.55-1.02); Calcium 9.2 mg/dL (8.5-10.1); Chloride 107 mmol/L (98-107); Glucose 118 mg/dL (74-106); LDH 183 U/L (81-234); Potassium 3.8 mmol/L (3.5-5.1); Sodium 141 mmol/L (136-145); Total Protein 7.3 g/dL (6.4-8.2)
== END 2019-12-29 23:59 | disposition home or self-care (01) ==
LOC: INF 00:44
PROVIDERS: PCP Nurse Practitioner Family; Visit Provider Internal Medicine Hematology & Oncology
DX: C83.10 Mantle cell lymphoma, unspecified site (principal); Z45.2 Encounter for adjustment and management of vascular access device
CPT/HCPCS: 36591; 80053; 83615; 85025

== ENCOUNTER 2020-01-10 15:10 | Outpatient (REF) | payer OTHER, SELFPAY | END 2020-01-10 15:30 | LOC: LBN 15:10 | PROVIDERS: PCP Nurse Practitioner Family; Visit Provider Family Medicine | DX: R10.30 Lower abdominal pain, unspecified (principal) | CPT/HCPCS: 87086 ==

== ENCOUNTER 2020-01-17 03:04 | Outpatient (RCR) | payer OTHER, SELFPAY ==
[2020-01-17] MEDS: Heparin 500 UNITS/5 ML SYRINGE IV (07:20)
[2020-01-17] MEDS: Normal Saline Flush 10 ML SYR IVP (07:20)
== END 2020-01-27 23:59 | disposition home or self-care (01) ==
LOC: INF 03:04
PROVIDERS: PCP Nurse Practitioner Family; Visit Provider Internal Medicine Hematology & Oncology
DX: Z45.2 Encounter for adjustment and management of vascular access device (principal)
CPT/HCPCS: 96523

== ENCOUNTER 2020-02-14 02:44 | Outpatient (RCR) | payer OTHER, SELFPAY | END 2020-02-27 23:59 | disposition home or self-care (01) | LOC: INF 02:44 | PROVIDERS: PCP Nurse Practitioner Family; Visit Provider Internal Medicine Hematology & Oncology | DX: R69 Illness, unspecified (principal) ==

== ENCOUNTER 2020-04-24 12:53 | Outpatient (RCR) | payer OTHER, SELFPAY ==
[2020-04-24] MEDS: Normal Saline Flush 10 ML SYR IVP (13:02)
[2020-04-24 13:08] LABS: Abs Immature Grans 0.01 k/cumm (0.0-0.09); Absolute Basophil Count 0.02 k/cumm (0.0-0.2); Absolute Eosinophil Count 0.06 k/cumm (0.0-0.7); Absolute Monocyte Count 0.72 k/cumm (0.11-0.7); Absolute Neutrophil Count 3.98 k/cumm (1.2-6.7); Basophils % 0.3; Eosinophils % 0.9; HCT 38.7 % (36.0-46.0); HGB 13.1 g/dL (12.0-15.5); Immature Grans % 0.1 %; Lymphocytes % 28.4; Mean Corp. HGB Concentration 33.9 g/dL (32.0-36.0); Mean Corpuscular Hemoglobin 32.6 pg (27.0-33.0); Mean Corpuscular Volume 96.3 fL (80-95); Mean Platelet Volume 9.1 fL (8.0-11.0); Monocytes % 10.8; Neutrophils % 59.5; Platelet Count 266 x1000/uL (130-400); RBC 4.02 m/cumm (4.00-5.20); White Blood Cell Count 6.69 k/cumm (4.4-10.8)
[2020-04-24 13:26] LABS: ALT 32 U/L (14-59); AST 26 U/L (15-37); Albumin 4.1 g/dL (3.4-5.0); Alkaline Phosphatase 104 U/L (46-116); Anion Gap 8.4 mmol/L (3-11); BUN 18 mg/dL (7-18); Bilirubin, Total 0.4 mg/dL (0.2-1.0); CO2 26.6 mmol/L (21.0-32.0); CREATININE 0.98 mg/dL (0.55-1.02); Calcium 9.5 mg/dL (8.5-10.1); Chloride 103 mmol/L (98-107); Estimated GFR 58.09 (mL/min/1.73m2); Glucose 100 mg/dL (74-106); LDH 216 U/L (81-234); Potassium 3.8 mmol/L (3.5-5.1); Sodium 138 mmol/L (136-145); Total Protein 7.9 g/dL (6.4-8.2)
== END 2020-04-28 23:59 | disposition home or self-care (01) ==
LOC: INF 12:53
PROVIDERS: PCP Nurse Practitioner Family; Visit Provider Internal Medicine Hematology & Oncology
DX: C83.10 Mantle cell lymphoma, unspecified site (principal); Z45.2 Encounter for adjustment and management of vascular access device
CPT/HCPCS: 36591; 80053; 83615; 85025

== ENCOUNTER 2020-06-05 18:19 | Outpatient (REF) | payer MEDICAID, SELFPAY ==
[2020-06-07 13:56] LABS: Chlamydia Result Negative (Negative); GC Result Negative (Negative)
== END 2020-06-05 18:39 ==
LOC: LBN 18:19
PROVIDERS: PCP Nurse Practitioner Family; Visit Provider Nurse Practitioner Women's Health
DX: Z11.3 Encounter for screening for infections with a predominantly sexual mode of transmission (principal)
CPT/HCPCS: 87491; 87591

== ENCOUNTER 2020-06-07 03:27 | Outpatient (CLI) | payer MEDICAID, SELFPAY ==
[2020-06-08 13:51] LABS: Syphilis Total Ab w/Reflex Nonreactive (Nonreactive)
[2020-06-10 09:30] LABS: Hepatitis B Surface Ag Negative (Negative)
[2020-06-10 10:10] LABS: Hepatitis C Ab w Rflx HCV PCR Negative (Negative)
[2020-06-10 10:21] LABS: HIV-1/2 Ag & Ab Screen Negative (Negative)
== END 2020-06-07 03:47 ==
PROVIDERS: PCP Nurse Practitioner Family; Visit Provider Nurse Practitioner Women's Health
DX: Z11.3 Encounter for screening for infections with a predominantly sexual mode of transmission (principal); Z11.4 Encounter for screening for human immunodeficiency virus [HIV]; Z11.59 Encounter for screening for other viral diseases
CPT/HCPCS: 36415; 86803; 87340; 87389; 86780

== ENCOUNTER 2020-06-19 03:08 | Outpatient (RCR) | payer MEDICAID, SELFPAY ==
[2020-06-19] MEDS: Normal Saline Flush 10 ML SYR IVP (10:05)
[2020-06-19 10:19] LABS: Abs Immature Grans 0.01 k/cumm (0.0-0.09); Absolute Basophil Count 0.02 k/cumm (0.0-0.2); Absolute Eosinophil Count 0.05 k/cumm (0.0-0.7); Absolute Lymphocyte Count 1.46 k/cumm (1.2-3.4); Absolute Monocyte Count 0.52 k/cumm (0.11-0.7); Absolute Neutrophil Count 3.53 k/cumm (1.2-6.7); Basophils % 0.4; Eosinophils % 0.9; HCT 40.7 % (36.0-46.0); HGB 13.6 g/dL (12.0-15.5); Immature Grans % 0.2 %; Lymphocytes % 26.1; Mean Corp. HGB Concentration 33.4 g/dL (32.0-36.0); Mean Corpuscular Hemoglobin 32.3 pg (27.0-33.0); Mean Corpuscular Volume 96.7 fL (80-95); Monocytes % 9.3; Neutrophils % 63.1; Platelet Count 297 x1000/uL (130-400); RBC 4.21 m/cumm (4.00-5.20); RBC Distribution Width 12.8 % (11.7-14.6); White Blood Cell Count 5.59 k/cumm (4.4-10.8)
[2020-06-19 10:35] LABS: ALT 41 U/L (14-59); AST 32 U/L (15-37); Albumin 3.8 g/dL (3.4-5.0); Alkaline Phosphatase 93 U/L (46-116); Anion Gap 10.4 mmol/L (3-11); BUN 14 mg/dL (7-18); Bilirubin, Total 0.6 mg/dL (0.2-1.0); CO2 26.6 mmol/L (21.0-32.0); CREATININE 0.96 mg/dL (0.55-1.02); Calcium 9.2 mg/dL (8.5-10.1); Chloride 104 mmol/L (98-107); Estimated GFR 59.28 (mL/min/1.73m2); Glucose 125 mg/dL (74-106); LDH 192 U/L (81-234); Potassium 3.8 mmol/L (3.5-5.1); Sodium 141 mmol/L (136-145); Total Protein 7.7 g/dL (6.4-8.2)
== END 2020-06-28 23:59 | disposition home or self-care (01) ==
LOC: INF 03:08
PROVIDERS: PCP Nurse Practitioner Family; Visit Provider Internal Medicine Hematology & Oncology
DX: Z45.2 Encounter for adjustment and management of vascular access device; C83.18 Mantle cell lymphoma, lymph nodes of multiple sites
CPT/HCPCS: 36591; 80053; 83615; 85025

== ENCOUNTER 2020-06-24 02:58 | Outpatient (CLI) | payer MEDICAID, SELFPAY ==
[2020-06-24 12:59] LABS: Anion Gap 11.3 mmol/L (3-11); BUN 17 mg/dL (7-18); CO2 23.7 mmol/L (21.0-32.0); Calcium 9.4 mg/dL (8.5-10.1); Calculated LDL 130 mg/dL (<100); Chloride 105 mmol/L (98-107); Cholesterol 213 mg/dL (<200); Estimated GFR 56.56 (mL/min/1.73m2); Glucose 128 mg/dL (74-106); HDL Cholesterol 55 mg/dL (40-60); Potassium 3.9 mmol/L (3.5-5.1); Sodium 140 mmol/L (136-145); Triglyceride 143 mg/dL (<150)
== END 2020-06-24 03:18 ==
PROVIDERS: PCP Nurse Practitioner Family; Visit Provider Nurse Practitioner Family
DX: I10 Essential (primary) hypertension (principal); R73.03 Prediabetes
CPT/HCPCS: 36415; 80048; 80061; 83036

== ENCOUNTER 2020-06-27 01:40 | Outpatient (CLI) | payer MEDICAID, SELFPAY ==
--- NOTE | 2020-06-27 12:44 | DI.MAMMO_ITS ---
EXAM: MAMMO SCREENING CLINICAL HISTORY: screening,z12.39 TECHNIQUE: Mammograms were interpreted according to the usual protocol including computer analysis w [employer] CAD system, tomosynthesis and C-view imaging. COMPARISON: 2009 through 2018 FINDINGS: The breasts are composed of scattered fibroglandular densities, Breast Density category B. No suspicious masses or suspicious microcalcifications are seen. No skin thickening or abnormal axillary lymph nodes are seen. There has been no significant change from prior exams. A port is again noted over the right pectora l muscle. IMPRESSION: BI-RADS Category 1, Negative mammogram Yearly screening mammography is recommended. Breast Density Category B, scattered fibroglandular densities.
== END 2020-06-27 02:00 ==
PROVIDERS: PCP Nurse Practitioner Family; Visit Provider Nurse Practitioner Women's Health
DX: Z12.31 Encounter for screening mammogram for malignant neoplasm of breast (principal); R92.2 Inconclusive mammogram
CPT/HCPCS: 77063; 77067

== ENCOUNTER 2020-07-12 05:41 | Outpatient (RCR) | payer MEDICAID, SELFPAY ==
[2020-07-12] MEDS: Normal Saline Flush 10 ML SYR IVP (13:59)
[2020-07-12] MEDS: Heparin 500 UNITS/5 ML SYRINGE IV (13:59)
== END 2020-07-29 23:59 | disposition home or self-care (01) ==
LOC: INF 05:41
PROVIDERS: PCP Nurse Practitioner Family; Visit Provider Internal Medicine Hematology & Oncology
DX: Z45.2 Encounter for adjustment and management of vascular access device (principal)
CPT/HCPCS: 96523

== ENCOUNTER 2020-07-29 16:18 | Outpatient (REF) | payer MEDICAID, SELFPAY | END 2020-07-29 16:38 | LOC: LBN 16:18 | PROVIDERS: PCP Nurse Practitioner Family; Visit Provider Nurse Practitioner Women's Health | DX: N89.8 Other specified noninflammatory disorders of vagina (principal) | CPT/HCPCS: 87480; 87510; 87660 ==

== ENCOUNTER 2020-08-21 01:47 | Outpatient (RCR) | payer MEDICAID, SELFPAY ==
[2020-08-21 08:52] LABS: Abs Immature Grans 0.01 10^3/uL (0.0-0.06); Absolute Basophil Count 0.04 10^3/uL (0.0-0.2); Absolute Eosinophil Count 0.05 10^3/uL (0.0-0.7); Absolute Lymphocyte Count 1.51 10^3/uL (1.2-3.4); Absolute Monocyte Count 0.59 10^3/uL (0.1-0.8); Absolute Neutrophil Count 3.34 10^3/uL (1.2-6.7); Basophils % 0.7; Eosinophils % 0.9; HCT 39.6 % (36.0-46.0); HGB 13.5 g/dL (11.2-15.7); Immature Grans % 0.2; Lymphocytes % 27.3; MCH 32.8 pg (27.0-33.0); MCHC 34.1 % (32.0-36.0); MCV 96.1 fL (80-95); MPV 9.8 fL (8.0-11.0); Monocytes % 10.6; Neutrophils % 60.3; Nucleated RBC 0 %; Platelet Count 204 10^3/uL (130-400); RBC 4.12 10^6/uL (3.93-5.22); RDW 12.2 % (11.7-14.6); RDW-SD 42.8 fL; WBC 5.54 10^3/uL (4.4-10.8)
[2020-08-21 09:05] LABS: ALT 42 U/L (14-59); AST 32 U/L (15-37); Alkaline Phosphatase 87 U/L (46-116); Anion Gap 6.8 mmol/L (3-11); BUN 16 mg/dL (7-18); Bilirubin, Total 0.6 mg/dL (0.2-1.0); CO2 27.2 mmol/L (21.0-32.0); CREATININE 1.03 mg/dL (0.55-1.02); Calcium 9.3 mg/dL (8.5-10.1); Chloride 106 mmol/L (98-107); Estimated GFR 54.66 (mL/min/1.73m2); Glucose 105 mg/dL (74-106); LDH 179 U/L (81-234); Potassium 3.6 mmol/L (3.5-5.1); Sodium 140 mmol/L (136-145); Total Protein 7.5 g/dL (6.4-8.2)
[2020-08-21] MEDS: Normal Saline Flush 10 ML SYR IVP (09:34)
== END 2020-08-28 23:59 | disposition home or self-care (01) ==
LOC: INF 01:47
PROVIDERS: PCP Nurse Practitioner Family; Visit Provider Internal Medicine Hematology & Oncology
DX: C83.10 Mantle cell lymphoma, unspecified site (principal); Z45.2 Encounter for adjustment and management of vascular access device
CPT/HCPCS: 36591; 80053; 83615; 85025

== ENCOUNTER 2020-09-04 00:50 | Outpatient (CLI) | payer MEDICAID, SELFPAY ==
--- NOTE | 2020-09-04 | DI.US_ITS ---
EXAM: US PELVIS TRANSVAGINAL CLINICAL HISTORY: H/O NON HODGKINS LYMPHOMA,C85.90,CHRONIC VAGINITIS,PELVIC DISCOMFORT TECHNIQUE: Ultrasound performed using standard protocol. COMPARISON: CT ABD PELVIS WITH CONTRAST from 09/23/2017 US RIGHT EXTREMITY ULTRASOUND from 10/05/2017 FINDINGS: Pelvic ultrasound was performed transabdominally and transvaginally. Uterus is 66 x 35 x 40 millimet ers, endometrial stripe is homogeneous and measures 3 millimeters in thickness. Right ovary is unremarkable in appearance, 15 x 8 x 9 millimeters. Left ovary measures 36 x 17 x 15 millimeters, left ovary contains an 18 millimeter low echogenicity l esion and a 14 millimeter low echogenicity lesion, these may represent cysts, however there is some q uestion of irregularity of the wall of these predominantly cystic lesions and there may be some low-l evel internal echoes. No gross internal vascularity seen on Doppler evaluation. Comparison with randolph or CT of August 2017 showed no gross ovarian mass or cyst at that time. No free fluid identified in the cul-de-sac. Limited scanning of the kidneys is unremarkable. IMPRESSION: Unremarkable postmenopausal appearance of the endometrial stripe. Indeterminate possibly new mixed echogenicity lesions of left ovary, neoplastic disease not excluded, correlation with pelvic MRI recommended. DATA REPOSITORY:
== END 2020-09-04 01:10 ==
PROVIDERS: PCP Nurse Practitioner Family; Visit Provider Nurse Practitioner Family
DX: R10.2 Pelvic and perineal pain (principal); C85.90 Non-Hodgkin lymphoma, unspecified, unspecified site; N76.1 Subacute and chronic vaginitis; R93.5 Abnormal findings on diagnostic imaging of other abdominal regions, including retroperitoneum
CPT/HCPCS: 76830; 76856

== ENCOUNTER 2020-09-16 01:48 | Outpatient (RCR) | payer MEDICAID, SELFPAY ==
[2020-09-16] MEDS: Normal Saline Flush 10 ML SYR IVP (13:08)
[2020-09-16] MEDS: Heparin 500 UNITS/5 ML SYRINGE IV (13:08)
== END 2020-09-28 23:59 | disposition home or self-care (01) ==
LOC: INF 01:48
PROVIDERS: PCP Nurse Practitioner Family; Visit Provider Internal Medicine Hematology & Oncology
DX: Z45.2 Encounter for adjustment and management of vascular access device (principal)
CPT/HCPCS: 96523

== ENCOUNTER 2020-10-15 08:19 | Outpatient (REF) | payer MEDICAID, SELFPAY ==
[2020-10-18 21:18] LABS: Patient Race White; SARS-CoV-2 RNA Undetected (Undetected); SARS-CoV-2 Specimen Source Nasal
== END 2020-10-15 08:39 ==
LOC: NCHCN 08:19
PROVIDERS: PCP Nurse Practitioner Family; Visit Provider Nurse Practitioner Family
DX: Z11.59 Encounter for screening for other viral diseases (principal)
CPT/HCPCS: U0003

== ENCOUNTER 2020-10-23 01:32 | Outpatient (RCR) | payer MEDICAID, SELFPAY ==
[2020-10-23] MEDS: Normal Saline Flush 10 ML SYR IVP (08:22)
[2020-10-23 08:35] LABS: Abs Immature Grans 0.02 10^3/uL (0.0-0.06); Absolute Basophil Count 0.03 10^3/uL (0.0-0.2); Absolute Eosinophil Count 0.08 10^3/uL (0.0-0.7); Absolute Lymphocyte Count 1.71 10^3/uL (1.2-3.4); Absolute Monocyte Count 0.67 10^3/uL (0.1-0.8); Absolute Neutrophil Count 3.53 10^3/uL (1.2-6.7); Basophils % 0.5; Eosinophils % 1.3; HCT 41.4 % (36.0-46.0); HGB 13.5 g/dL (11.2-15.7); Immature Grans % 0.3; Lymphocytes % 28.3; MCH 31.7 pg (27.0-33.0); MCHC 32.6 % (32.0-36.0); MCV 97.2 fL (80-95); Monocytes % 11.1; Neutrophils % 58.5; Nucleated RBC 0 %; Platelet Count 259 10^3/uL (130-400); RBC 4.26 10^6/uL (3.93-5.22); RDW 12.3 % (11.7-14.6); RDW-SD 44.3 fL; WBC 6.04 10^3/uL (4.4-10.8)
[2020-10-23 08:49] LABS: ALT 34 U/L (14-59); AST 26 U/L (15-37); Albumin 3.9 g/dL (3.4-5.0); Alkaline Phosphatase 117 U/L (46-116); Anion Gap 7.5 mmol/L (3-11); BUN 14 mg/dL (7-18); Bilirubin, Total 0.5 mg/dL (0.2-1.0); CO2 26.5 mmol/L (21.0-32.0); CREATININE 1.09 mg/dL (0.55-1.02); Calcium 8.9 mg/dL (8.5-10.1); Chloride 105 mmol/L (98-107); Glucose 114 mg/dL (74-106); LDH 182 U/L (81-234); Potassium 3.7 mmol/L (3.5-5.1); Sodium 139 mmol/L (136-145); Total Protein 7.8 g/dL (6.4-8.2)
== END 2020-10-28 23:59 | disposition home or self-care (01) ==
LOC: INF 01:32
PROVIDERS: PCP Nurse Practitioner Family; Visit Provider Internal Medicine Hematology & Oncology
DX: C83.18 Mantle cell lymphoma, lymph nodes of multiple sites (principal); Z45.2 Encounter for adjustment and management of vascular access device
CPT/HCPCS: 36591; 80053; 83615; 85025

== ENCOUNTER 2020-11-01 19:15 | Outpatient (REF) | payer OTHER, SELFPAY ==
[2020-11-03 09:16] LABS: COVID-19 RT-PCR UVMMC Result Negative (Negative)
== END 2020-11-01 19:35 ==
LOC: NCHCN 19:15
PROVIDERS: PCP Nurse Practitioner Family; Visit Provider Nurse Practitioner Family
DX: Z20.828 Contact with and (suspected) exposure to other viral communicable diseases (principal)
CPT/HCPCS: U0003

== ENCOUNTER 2020-11-20 01:34 | Outpatient (RCR) | payer MEDICAID, SELFPAY ==
[2020-11-20] MEDS: Normal Saline Flush 10 ML SYR IVP (10:06)
[2020-11-20] MEDS: Heparin 500 UNITS/5 ML SYRINGE IV (10:06)
== END 2020-11-28 23:59 | disposition home or self-care (01) ==
LOC: INF 01:34
PROVIDERS: PCP Family Medicine; Visit Provider Internal Medicine Hematology & Oncology
DX: Z45.2 Encounter for adjustment and management of vascular access device (principal)
CPT/HCPCS: 96523

== ENCOUNTER 2020-12-16 01:03 | Outpatient (CLI) | payer OTHER, SELFPAY ==
--- NOTE | 2020-12-16 | DI.US_ITS ---
EXAM: US PELVIS TRANSVAGINAL CLINICAL HISTORY: COMPLEX CYST LT OVARY,N83.292,COMPARE TO PREVIOUS. TECHNIQUE: Transabdominal and transvaginal pelvic ultrasound was performed using standard protocol. COMPARISON: US US PELVIS TRANSVAGINAL from 09/04/2020 FINDINGS: KIDNEYS: Kidneys are symmetric in size. There are echogenic foci seen in each of the kidneys suspicio us for nonobstructing stones. Vascular calcifications cannot be excluded. No evidence of hydronephr osis. No renal mass or cyst identified. UTERUS: Position: Anteverted. Size: 7.0 long by 2.9 AP by 4.8 transverse cm Endometrium: 0.3 cm. Normal for patient's menstrual status. Myometrium: Unremarkable. Cervix: Unremarkable. OVARIES: Right: 1.2 x 1 x 1 cm Cyst or mass: None. Left: 5 x 2.3 x 2.1 cm Cyst or mass: The avascular cystic lesions associated with the left ovary have shown interval increas e in size. The largest lesion now measures 3.6 x 1.5 x 2.9 cm compared with 1.8 x 1.2 x 1 centimetre s. The smaller lesion measures 2.5 x 2.3 x 2.5 cm compared with 1.4 x 1.5 x 1 centimetres. DOPPLER: Color: Symmetric and uniform flow to both ovaries. No hyperemia. Duplex: Normal ovarian arterial waveforms visualized. CUL-DE-SAC: Free fluid: None. Other: There is an avascular hypoechoic round lesion in the right adnexa measuring 1.1 x 0.8 x 0.9 cm . It lies medial to the right ovary. IMPRESSION: 1. Findings suspicious for nonobstructing bilateral renal stones. 2. Normal-appearing uterus with endometrial stripe within normal limits. 3. Interval increase in size of the avascular cystic lesions in the left ovary since 09/04/2020. 4. 1.1 cm hypoechoic avascular lesion in the right adnexa. The finding is nonspecific but benign or neoplastic pelvic lesions cannot be excluded including endometriomas, paraovarian cysts, etc. 5. MRI may be considered for evaluation of the enlarging left ovarian cysts and the right adnexal les ion. DATA REPOSITORY:
== END 2020-12-16 01:23 ==
PROVIDERS: PCP Nurse Practitioner Family; Visit Provider Obstetrics & Gynecology Gynecologic Oncology
DX: N83.292 Other ovarian cyst, left side (principal)
CPT/HCPCS: 76830; 76856

== ENCOUNTER 2020-12-30 03:28 | Outpatient (RCR) | payer OTHER, SELFPAY ==
[2020-12-30] MEDS: Normal Saline Flush 10 ML SYR IVP (13:08)
[2020-12-30] MEDS: Heparin 500 UNITS/5 ML SYRINGE IV (13:08)
== END 2021-01-26 23:59 | disposition home or self-care (01) ==
LOC: INF 03:28
PROVIDERS: PCP Nurse Practitioner Family; Visit Provider Nurse Practitioner Family
DX: Z45.2 Encounter for adjustment and management of vascular access device (principal)
CPT/HCPCS: 96523

== ENCOUNTER 2021-01-10 10:38 | Outpatient (REF) | payer OTHER, SELFPAY ==
[2021-01-10 15:47] LABS: Hemoglobin A1C 6.4 % (<5.7)
[2021-01-10 15:57] LABS: Calculated LDL 153 mg/dL (<100); Cholesterol 244 mg/dL (<200); HDL Cholesterol 58 mg/dL (40-60); TSH 1.64 uIU/mL (0.36-3.74); Triglyceride 165 mg/dL (<150)
== END 2021-01-10 10:39 | disposition home or self-care (01) ==
LOC: NCHCN 10:38
PROVIDERS: PCP Nurse Practitioner Family; Visit Provider Nurse Practitioner Family
DX: Z13.29 Encounter for screening for other suspected endocrine disorder (principal); R73.03 Prediabetes
CPT/HCPCS: 80061; 83036; 84443

== ENCOUNTER 2021-01-29 02:40 | Outpatient (RCR) | payer OTHER, SELFPAY ==
[2021-01-29] MEDS: Normal Saline Flush 10 ML SYR IVP (08:17)
[2021-01-29 08:24] LABS: Abs Immature Grans 0.01 10^3/uL (0.0-0.06); Absolute Basophil Count 0.02 10^3/uL (0.0-0.2); Absolute Eosinophil Count 0.09 10^3/uL (0.0-0.7); Absolute Monocyte Count 0.57 10^3/uL (0.1-0.8); Absolute Neutrophil Count 2.49 10^3/uL (1.2-6.7); Basophils % 0.4; Eosinophils % 1.9; HCT 38.9 % (36.0-46.0); HGB 13.3 g/dL (11.2-15.7); Immature Grans % 0.2; Lymphocytes % 33.5; MCH 32.6 pg (27.0-33.0); MCHC 34.2 % (32.0-36.0); MCV 95.3 fL (80-95); MPV 9.4 fL (8.0-11.0); Monocytes % 11.9; Neutrophils % 52.1; Nucleated RBC 0 %; Platelet Count 257 10^3/uL (130-400); RBC 4.08 10^6/uL (3.93-5.22); RDW 12.2 % (11.7-14.6); RDW-SD 42.5 fL; WBC 4.78 10^3/uL (4.4-10.8)
[2021-01-29 08:37] LABS: ALT 39 U/L (14-59); AST 27 U/L (15-37); Alkaline Phosphatase 98 U/L (46-116); Anion Gap 10.4 mmol/L (3-11); BUN 20 mg/dL (7-18); Bilirubin, Total 0.6 mg/dL (0.2-1.0); CO2 25.6 mmol/L (21.0-32.0); CREATININE 0.9 mg/dL (0.55-1.02); Calcium 9.1 mg/dL (8.5-10.1); Chloride 104 mmol/L (98-107); Glucose 99 mg/dL (74-106); LDH 180 U/L (81-234); Potassium 3.5 mmol/L (3.5-5.1); Sodium 140 mmol/L (136-145); Total Protein 7.8 g/dL (6.4-8.2)
== END 2021-02-26 23:59 | disposition home or self-care (01) ==
LOC: INF 02:40
PROVIDERS: PCP Nurse Practitioner Family; Visit Provider Internal Medicine Hematology & Oncology
DX: Z45.2 Encounter for adjustment and management of vascular access device (principal); C83.18 Mantle cell lymphoma, lymph nodes of multiple sites
CPT/HCPCS: 36591; 80053; 83615; 85025

== ENCOUNTER 2021-03-19 01:50 | Outpatient (CLI) | payer OTHER, SELFPAY ==
--- NOTE | 2021-03-19 | DI.MRI_ITS ---
EXAM: MR PELVIS WO/W CLINICAL HISTORY: F/U ABNL CT,? HYDROSALPINX OR MASS,H/O COMPLEX OVARIAN CYST,SMALL PELVIC COMPARISON: CT CT ABDOMEN PELVIS W from 03/14/[address] ABDOMEN PELVIS W from 03/14/2021 FINDINGS: UTERUS/CERVIX: Uterus is anteverted and measures 7 centimetres in length by 3.3 centimetres AP by 4.2 cm wide. There are obvious uterine fibroids. There are few small 2-3 millimeters size cystic finding s in the endometrial lining. Endometrial stripe size appears age-appropriate. There is no prominent f luid in the endometrial canal. OVARIES/ADNEXAE: In the left adnexa there is an elongated cystic structure measuring approximately 7. 5 cm length by maximum diameter 2.6 cm containing thin septations at 2 levels. This most probably rep resents cystic ovarian pathology versus possible hydrosalpinx. Smaller cystic structure in the right adnexa noted which measures 2.5 by 1.2 cm, probably also ovarian. There is another cystic structure more posteriorly anterior to the upper sacrum which measures 2.8 cm craniocaudal by 2.2 cm AP by 3.7 cm wide. This exhibits mild peripheral enhancement and corresponds to a fluid collection seen adjacent to partial sigmoid resection sutures seen on the recent CT scan o f 03/14/2021. CUL-DE-SAC: No free fluid URINARY BLADDER: No masses. No calculi. LYMPH NODES: No obvious lymphadenopathy in the visualized iliac chains nor in the inguinal regions. SACRUM/SACRAL CANAL: There is a right of center Tarlov intra sacral cyst which measures 10 millimeter s wide by 9 millimeters AP by 10 millimeters craniocaudal. No lytic osseous lesions in the sacrum. No disc herniation at the visualized L5-S1 level. OSSEOUS: No lytic osseous lesions identified. Degenerative changes in the hips. No joint effusions. N o avascular necrosis of the hips.. IMPRESSION: 1. Prominent cystic structure left adnexa measuring 7.5 cm x 2.6 cm with thin septations. Probably ov ashlee although cannot exclude hydrosalpinx. 2. There is smaller but also enlarged for age cystic structure in the right adnexa. Probably also ova srikanth. 3. Fluid collection posteriorly in the presacral region which is adjacent to a sigmoid bowel anastomo sis and corresponds to finding on recent CT scan. Cannot exclude small abscess related to the anastom osis. 4. No and abnormal findings in the uterus. 5. No adenopathy evident. No lytic osseous lesions. Small Tarlov intra sacral cyst incidentally noted in the sacral canal. DATA REPOSITORY:
[2021-03-19] MEDS: Gadoterate meglumine 20 ML VIAL 18 ML IVP (11:08)
[2021-03-19] MEDS: Normal Saline Flush 10 ML SYR IVP (11:08)
== END 2021-03-19 02:10 ==
PROVIDERS: PCP Nurse Practitioner Family; Visit Provider Nurse Practitioner Family
DX: R19.04 Left lower quadrant abdominal swelling, mass and lump (principal); D25.9 Leiomyoma of uterus, unspecified; N85.4 Malposition of uterus; N83.8 Other noninflammatory disorders of ovary, fallopian tube and broad ligament; Z90.49 Acquired absence of other specified parts of digestive tract
CPT/HCPCS: 72197

== ENCOUNTER 2021-03-26 03:15 | Outpatient (RCR) | payer OTHER, SELFPAY ==
[2021-03-19] MEDS: Heparin 500 UNITS/5 ML SYRINGE IV (10:15)
[2021-03-19] MEDS: Normal Saline Flush 10 ML SYR IVP (10:15)
[2021-03-26] MEDS: Normal Saline Flush 10 ML SYR IVP (07:38)
[2021-03-26 08:25] LABS: Abs Immature Grans 0.01 10^3/uL (0.0-0.06); Absolute Basophil Count 0.03 10^3/uL (0.0-0.2); Absolute Eosinophil Count 0.08 10^3/uL (0.0-0.7); Absolute Lymphocyte Count 1.13 10^3/uL (1.2-3.4); Absolute Monocyte Count 0.62 10^3/uL (0.1-0.8); Absolute Neutrophil Count 3.99 10^3/uL (1.2-6.7); Basophils % 0.5; Eosinophils % 1.4; HCT 41.8 % (36.0-46.0); HGB 13.8 g/dL (11.2-15.7); Immature Grans % 0.2; Lymphocytes % 19.3; MCH 32.1 pg (27.0-33.0); MCV 97.2 fL (80-95); MPV 9.6 fL (8.0-11.0); Monocytes % 10.6; Nucleated RBC 0 %; Platelet Count 245 10^3/uL (130-400); RDW 12.4 % (11.7-14.6); RDW-SD 44.7 fL; WBC 5.86 10^3/uL (4.4-10.8)
[2021-03-26 08:38] LABS: ALT 34 U/L (14-59); AST 26 U/L (15-37); Albumin 4.1 g/dL (3.4-5.0); Alkaline Phosphatase 108 U/L (46-116); Anion Gap 9.5 mmol/L (3-11); BUN 19 mg/dL (7-18); Bilirubin, Total 0.6 mg/dL (0.2-1.0); CO2 26.5 mmol/L (21.0-32.0); CREATININE 0.9 mg/dL (0.55-1.02); Calcium 9.3 mg/dL (8.5-10.1); Chloride 107 mmol/L (98-107); Glucose 104 mg/dL (74-106); LDH 203 U/L (81-234); Potassium 3.7 mmol/L (3.5-5.1); Sodium 143 mmol/L (136-145); Total Protein 7.8 g/dL (6.4-8.2)
== END 2021-03-28 23:59 | disposition home or self-care (01) ==
LOC: INF 03:15
PROVIDERS: PCP Nurse Practitioner Family; Visit Provider Internal Medicine Hematology & Oncology
DX: C83.18 Mantle cell lymphoma, lymph nodes of multiple sites (principal); Z45.2 Encounter for adjustment and management of vascular access device
CPT/HCPCS: 36591; 80053; 96523; 83615; 85025

== ENCOUNTER 2021-05-21 01:51 | Outpatient (RCR) | payer OTHER, SELFPAY ==
[2021-05-21 07:47] LABS: Abs Immature Grans 0.02 10^3/uL (0.0-0.06); Absolute Basophil Count 0.03 10^3/uL (0.0-0.2); Absolute Eosinophil Count 0.13 10^3/uL (0.0-0.7); Absolute Lymphocyte Count 1.49 10^3/uL (1.2-3.4); Absolute Monocyte Count 0.76 10^3/uL (0.1-0.8); Absolute Neutrophil Count 5.52 10^3/uL (1.2-6.7); Basophils % 0.4; Eosinophils % 1.6; HCT 40.6 % (36.0-46.0); HGB 13.4 g/dL (11.2-15.7); Immature Grans % 0.3; Lymphocytes % 18.7; MCH 32.2 pg (27.0-33.0); MCV 97.6 fL (80-95); MPV 9.1 fL (8.0-11.0); Monocytes % 9.6; Neutrophils % 69.4; Nucleated RBC 0 %; Platelet Count 248 10^3/uL (130-400); RBC 4.16 10^6/uL (3.93-5.22); RDW-SD 46.2 fL; WBC 7.95 10^3/uL (4.4-10.8)
[2021-05-21] MEDS: Normal Saline Flush 10 ML SYR IVP (07:54)
[2021-05-21 08:04] LABS: ALT 29 U/L (14-59); AST 20 U/L (15-37); Albumin 3.8 g/dL (3.4-5.0); Alkaline Phosphatase 121 U/L (46-116); Anion Gap 9.7 mmol/L (3-11); BUN 15 mg/dL (7-18); Bilirubin, Total 0.5 mg/dL (0.2-1.0); CO2 26.3 mmol/L (21.0-32.0); Chloride 107 mmol/L (98-107); Estimated GFR 56.37 (mL/min/1.73m2); Glucose 122 mg/dL (74-106); LDH 187 U/L (81-234); Potassium 3.8 mmol/L (3.5-5.1); Sodium 143 mmol/L (136-145); Total Protein 7.5 g/dL (6.4-8.2)
== END 2021-05-28 23:59 | disposition home or self-care (01) ==
LOC: INF 01:51
PROVIDERS: PCP Nurse Practitioner Family; Visit Provider Internal Medicine Hematology & Oncology
DX: C83.18 Mantle cell lymphoma, lymph nodes of multiple sites (principal); Z45.2 Encounter for adjustment and management of vascular access device
CPT/HCPCS: 36591; 80053; 83615; 85025

== ENCOUNTER 2021-06-17 09:49 | Outpatient (REF) | payer OTHER, SELFPAY ==
[2021-06-18 10:40] LABS: HCT 41.2 % (36.0-46.0); HGB 13.6 g/dL (11.2-15.7); MCH 32.1 pg (27.0-33.0); MCV 97.2 fL (80-95); MPV 9.8 fL (8.0-11.0); Platelet Count 277 10^3/uL (130-400); RBC 4.24 10^6/uL (3.93-5.22); RDW 12.8 % (11.7-14.6); RDW-SD 45.5 fL; WBC 8.93 10^3/uL (4.4-10.8)
[2021-06-18 11:09] LABS: Hemoglobin A1C 6.2 % (<5.7)
[2021-06-18 11:31] LABS: ALT 38 U/L (14-59); AST 31 U/L (15-37); Albumin 4.6 g/dL (3.4-5.0); Alkaline Phosphatase 128 U/L (46-116); Anion Gap 9.6 mmol/L (3-11); BUN 15 mg/dL (7-18); Bilirubin, Total 0.5 mg/dL (0.2-1.0); CO2 27.4 mmol/L (21.0-32.0); Calcium 9.7 mg/dL (8.5-10.1); Chloride 105 mmol/L (98-107); Estimated GFR 56.37 (mL/min/1.73m2); Glucose 91 mg/dL (74-106); Potassium 4.2 mmol/L (3.5-5.1); Sodium 142 mmol/L (136-145); Total Protein 8.1 g/dL (6.4-8.2)
== END 2021-06-17 09:50 | disposition home or self-care (01) ==
LOC: LBN 09:49
PROVIDERS: PCP Nurse Practitioner Family; Visit Provider Nurse Practitioner Family
DX: R73.03 Prediabetes (principal); R41.3 Other amnesia; R55 Syncope and collapse
CPT/HCPCS: 80053; 85027; 83036

== ENCOUNTER 2021-06-23 01:12 | Outpatient (CLI) | payer OTHER, SELFPAY ==
--- NOTE | 2021-06-23 | DI.MRI_ITS ---
Exam(s) MR BRAIN WO/W EXAM: MR BRAIN WO/W CLINICAL HISTORY: NEAR SYNCOPE,R55,MEMORY DEFICIT,R41.3 TECHNIQUE: Multiplanar multisequence MRI of the brain was performed. Both noninfused and contrast i nfused sequences were performed. IV Contrast injected was 19 cc Dotarem. COMPARISON: No exams were available for comparison FINDINGS: CEREBRAL PARENCHYMA: No evidence of intracranial hemorrhage, mass effect nor shift of midline structu re. No extraaxial fluid collections. Ventricles are not enlarged nor shifted. There is prominent bilateral periventricular white matter signal abnormality noted. Also signal abno rmality evident in the central hillary. None of these areas exhibit abnormal signal on diffusion imagin g to suggest acute infarct. In addition, there are no ring enhancing lesions in the brain. There is also no abnormal meningeal e nhancement. PITUITARY GLAND: No mass nor parasellar abnormality. No obvious abnormality in the cavernous sinuses. FLOW VOIDS: The expected flow void are noted. No evidence of obvious aneurysm nor obvious vascular ma lformation. PARANASAL SINUSES: The visualized paranasal sinuses appear unremarkable. ORBITS: No obvious abnormal findings. IMPRESSION: 1. There is abundant bilateral relatively symmetrical periventricular signal abnormality, not associa bird with ring-enhancing lesions nor abnormal signal on diffusion imaging. In addition there is signa l abnormality in the central hillary which is probably of similar etiology. Main considerations are for chronic ischemic disease, or other white matter demyelination/degenerative disease. 2. No abnormal enhancing intracranial lesions and no abnormal meningeal enhancement. DATA REPOSITORY:
[2021-06-23] MEDS: Normal Saline Flush 10 ML SYR IVP (12:55)
[2021-06-23] MEDS: Gadoterate meglumine 20 ML VIAL 19 ML IVP (12:56)
== END 2021-06-23 01:32 ==
PROVIDERS: PCP Nurse Practitioner Family; Visit Provider Nurse Practitioner Family
DX: R55 Syncope and collapse (principal); R41.3 Other amnesia
CPT/HCPCS: 70553

== ENCOUNTER 2021-06-23 12:41 | Outpatient (RCR) | payer OTHER, MEDICAID, SELFPAY ==
[2021-06-23] MEDS: Heparin 500 UNITS/5 ML SYRINGE (13:38)
[2021-06-23] MEDS: Normal Saline Flush 10 ML SYR IVP (13:38)
== END 2021-06-28 23:59 | disposition home or self-care (01) ==
LOC: INF 12:41
PROVIDERS: PCP Nurse Practitioner Family; Visit Provider Internal Medicine Hematology & Oncology
DX: Z45.2 Encounter for adjustment and management of vascular access device (principal)
CPT/HCPCS: 96523

== ENCOUNTER 2021-07-23 02:19 | Outpatient (RCR) | payer OTHER, MEDICAID, SELFPAY ==
[2021-07-23] MEDS: Normal Saline Flush 10 ML SYR IVP (08:28)
[2021-07-23 08:44] LABS: Abs Immature Grans 0.01 10^3/uL (0.0-0.06); Absolute Basophil Count 0.05 10^3/uL (0.0-0.2); Absolute Eosinophil Count 0.18 10^3/uL (0.0-0.7); Absolute Lymphocyte Count 1.89 10^3/uL (1.2-3.4); Absolute Monocyte Count 0.77 10^3/uL (0.1-0.8); Absolute Neutrophil Count 2.89 10^3/uL (1.2-6.7); Basophils % 0.9; Eosinophils % 3.1; HCT 39.5 % (36.0-46.0); HGB 13.1 g/dL (11.2-15.7); Immature Grans % 0.2; Lymphocytes % 32.6; MCH 31.9 pg (27.0-33.0); MCHC 33.2 % (32.0-36.0); MCV 96.1 fL (80-95); MPV 9.6 fL (8.0-11.0); Monocytes % 13.3; Neutrophils % 49.9; Nucleated RBC 0 %; Platelet Count 222 10^3/uL (130-400); RBC 4.11 10^6/uL (3.93-5.22); RDW 12.2 % (11.7-14.6); RDW-SD 43.5 fL; WBC 5.79 10^3/uL (4.4-10.8)
[2021-07-23 08:58] LABS: ALT 35 U/L (14-59); AST 26 U/L (15-37); Albumin 3.9 g/dL (3.4-5.0); Alkaline Phosphatase 110 U/L (46-116); Anion Gap 9.4 mmol/L (3-11); BUN 17 mg/dL (7-18); Bilirubin, Total 0.5 mg/dL (0.2-1.0); CO2 27.6 mmol/L (21.0-32.0); CREATININE 1.1 mg/dL (0.55-1.02); Calcium 9.1 mg/dL (8.5-10.1); Chloride 105 mmol/L (98-107); Glucose 114 mg/dL (74-106); LDH 213 U/L (81-234); Potassium 3.7 mmol/L (3.5-5.1); Sodium 142 mmol/L (136-145); Total Protein 7.7 g/dL (6.4-8.2)
== END 2021-07-29 23:59 | disposition home or self-care (01) ==
LOC: INF 02:19
PROVIDERS: PCP Nurse Practitioner Family; Visit Provider Internal Medicine Hematology & Oncology
DX: C83.18 Mantle cell lymphoma, lymph nodes of multiple sites (principal); Z45.2 Encounter for adjustment and management of vascular access device
CPT/HCPCS: 36591; 80053; 83615; 85025

== ENCOUNTER 2021-08-15 04:39 | Outpatient (RCR) | payer OTHER, MEDICAID, SELFPAY ==
[2021-08-15] MEDS: Normal Saline Flush 10 ML SYR IVP (12:18)
[2021-08-15] MEDS: Heparin 500 UNITS/5 ML SYRINGE IV ×2 (12:18→13:26)
== END 2021-08-28 23:59 | disposition home or self-care (01) ==
LOC: INF 04:39
PROVIDERS: PCP Nurse Practitioner Family; Visit Provider Internal Medicine Hematology & Oncology
DX: Z45.2 Encounter for adjustment and management of vascular access device (principal)
CPT/HCPCS: 96523

== ENCOUNTER 2021-09-10 03:20 | Outpatient (RCR) | payer OTHER, MEDICAID, SELFPAY ==
[2021-09-10 11:36] LABS: Abs Immature Grans 0.02 10^3/uL (0.0-0.06); Absolute Basophil Count 0.03 10^3/uL (0.0-0.2); Absolute Eosinophil Count 0.05 10^3/uL (0.0-0.7); Absolute Monocyte Count 0.52 10^3/uL (0.1-0.8); Absolute Neutrophil Count 3.57 10^3/uL (1.2-6.7); Basophils % 0.5; Eosinophils % 0.9; HCT 38.8 % (36.0-46.0); HGB 12.9 g/dL (11.2-15.7); Immature Grans % 0.4; Lymphocytes % 23.7; MCH 32.4 pg (27.0-33.0); MCHC 33.2 % (32.0-36.0); MCV 97.5 fL (80-95); MPV 9.5 fL (8.0-11.0); Monocytes % 9.5; Nucleated RBC 0 %; Platelet Count 234 10^3/uL (130-400); RBC 3.98 10^6/uL (3.93-5.22); RDW 12.3 % (11.7-14.6); RDW-SD 44.6 fL; WBC 5.49 10^3/uL (4.4-10.8)
[2021-09-10] MEDS: Normal Saline Flush 10 ML SYR IVP (11:38)
[2021-09-10 12:14] LABS: ALT 29 U/L (14-59); AST 18 U/L (15-37); Albumin 3.8 g/dL (3.4-5.0); Alkaline Phosphatase 120 U/L (46-116); Anion Gap 8.2 mmol/L (3-11); BUN 15 mg/dL (7-18); Bilirubin, Total 0.4 mg/dL (0.2-1.0); CO2 27.8 mmol/L (21.0-32.0); Calcium 8.9 mg/dL (8.5-10.1); Chloride 106 mmol/L (98-107); Estimated GFR 56.37 (mL/min/1.73m2); Glucose 163 mg/dL (74-106); LDH 193 U/L (81-234); Potassium 3.4 mmol/L (3.5-5.1); Sodium 142 mmol/L (136-145); Total Protein 7.3 g/dL (6.4-8.2)
== END 2021-09-28 23:59 | disposition home or self-care (01) ==
LOC: INF 03:20
PROVIDERS: PCP Nurse Practitioner Family; Visit Provider Internal Medicine Hematology & Oncology
DX: C83.18 Mantle cell lymphoma, lymph nodes of multiple sites (principal); Z45.2 Encounter for adjustment and management of vascular access device
CPT/HCPCS: 36591; 80053; 83615; 85025

== ENCOUNTER 2021-10-10 11:30 | Outpatient (CLI) | payer BC, SELFPAY ==
[2021-10-10 17:19] LABS: Hemoglobin A1C 6.1 % (<5.7)
[2021-10-10 17:35] LABS: Calculated LDL 156 mg/dL (<100); Cholesterol 235 mg/dL (<200); HDL Cholesterol 52 mg/dL (40-60); Triglyceride 136 mg/dL (<150)
== END 2021-10-10 11:31 | disposition home or self-care (01) ==
LOC: LBO 11:32
PROVIDERS: PCP Student in an Organized Health Care Education/Training Program; Visit Provider Student in an Organized Health Care Education/Training Program
DX: R73.03 Prediabetes (principal); Z13.220 Encounter for screening for lipoid disorders
CPT/HCPCS: 36415; 80061; 83036

== ENCOUNTER 2021-12-11 12:01 | Outpatient (RCR) | payer BC, SELFPAY ==
[2021-12-11] MEDS: Normal Saline Flush 10 ML SYR IVP (15:16)
[2021-12-11] MEDS: Heparin 500 UNITS/5 ML SYRINGE (15:17)
== END 2021-12-29 23:59 | disposition home or self-care (01) ==
LOC: INF 12:01
PROVIDERS: PCP Student in an Organized Health Care Education/Training Program; Visit Provider Internal Medicine Hematology & Oncology
DX: C83.81 Other non-follicular lymphoma, lymph nodes of head, face, and neck (principal); Z45.2 Encounter for adjustment and management of vascular access device
CPT/HCPCS: 96523

== ENCOUNTER 2022-01-22 01:22 | Outpatient (RCR) | payer BC, SELFPAY ==
[2022-01-22] MEDS: Heparin 500 UNITS/5 ML SYRINGE IV (14:38)
[2022-01-22] MEDS: Normal Saline Flush 10 ML SYR IVP (14:39)
== END 2022-01-26 23:59 | disposition home or self-care (01) ==
LOC: INF 01:22
PROVIDERS: PCP Student in an Organized Health Care Education/Training Program; Visit Provider Internal Medicine Hematology & Oncology
DX: Z45.2 Encounter for adjustment and management of vascular access device (principal)
CPT/HCPCS: 96523

== ENCOUNTER 2022-03-05 01:42 | Outpatient (RCR) | payer BC, SELFPAY ==
[2022-03-05] MEDS: Heparin 500 UNITS/5 ML SYRINGE IV (12:48)
[2022-03-05] MEDS: Normal Saline Flush 10 ML SYR IVP (12:48)
== END 2022-03-28 23:59 | disposition home or self-care (01) ==
LOC: INF 01:42
PROVIDERS: PCP Student in an Organized Health Care Education/Training Program; Visit Provider Internal Medicine Hematology & Oncology
DX: Z45.2 Encounter for adjustment and management of vascular access device (principal)
CPT/HCPCS: 96523

== ENCOUNTER 2022-04-14 12:05 | Outpatient (REF) | payer BC, SELFPAY ==
[2022-04-15 14:44] LABS: COVID-19 RT-PCR UVMMC Result Negative (Negative)
== END 2022-04-14 12:06 | disposition home or self-care (01) ==
LOC: LBN 12:05
PROVIDERS: PCP Student in an Organized Health Care Education/Training Program; Visit Provider Physician Assistant
DX: Z20.822 Contact with and (suspected) exposure to COVID-19 (principal)
CPT/HCPCS: U0003

== ENCOUNTER 2022-04-17 21:03 | Emergency (ER) | payer BC, SELFPAY ==
[2022-04-17 21:20] VITALS: BP 150/97; PULSE 126; RESP 19; O2SAT 94
[2022-04-17 21:30] VITALS: TEMP 37.3
--- NOTE | 2022-04-17 21:44 | ED.GENADUL_ITS ---
Discharge Plan Disposition Patient Disposition: HOME Condition: Fair Discharge Details Clinical Impression: Single subsegmental pulmonary embolism without acute cor pulmonale, Bilateral wheezing Primary Care Provider: Tiffany Santiago ED Provider: Sindy Larson Home Meds and New Rx's Prescriptions: New Eliquis 5 mg tablet 5 mg PO BID 30 Days Qty: 60 0RF Rx Instructions: 10mg twice daily for the next week then transition to 5mg twice daily Continued acetaminophen 325 mg capsule 650 mg PO ONCE PRN rituximab IV .qom benzonatate [Tessalon Perles] 100 mg capsule 100 mg PO TID PRN (Reason: cough) Qty: 14 0RF albuterol sulfate [Proventil HFA] 90 mcg/actuation HFA aerosol inhaler 2 puff inhalation Q6H PRN (Reason: shortness of breath or wheezing) Qty: 8.5 0RF Discontinued ibuprofen 600 mg tablet 600 mg PO Q6H PRN (Reason: pain and inflamation) Qty: 60 1RF No Action apixaban 5 mg tablet 5 mg PO BID Qty: 180 3RF Discharge Instructions Instructions: Apixaban (By mouth), Pulmonary Embolism (ED) Additional Instructions: Imaging today shows a small pulmonary embolism. To prevent this from getting any larger and allow for resorption, you have been started on Eliquis which is a blood thinner. You will take 10 mg, (two 5 mg tablets), twice a day for the next week and then transition to 5 mg tablets twice a day. Please see the attached free trial offer. Please encourage hydration. You may continue with the albuterol as needed for your chest tightness. As we discussed, your symptoms also appear to be associated with viral upper respiratory illness causing the sore throat, postnasal drip and wheezing. Is presenting for shortness of breath, difficulty breathing, chest pain or other neurological symptoms with the care urgently once again. Otherwise, please call your primary care on Wednesday morning to schedule follow-up appointment within the next week for reevaluation While on the Eliquis, please do not take Ibuprofen. Referrals: Tiffany Santiago DO [Primary Care Provider] - Discharge Data Discharge Date/Time-TO BE ENTERED AT DEPARTURE: 04/18/22 01:12 Medical Decision Making Patient is a pleasant 51-year-old female presents today with chief complaint of shortness of breath. She reports that this has been present for the last 5 days. States that she did just recently travel from [place]. Denies any chest pain but does state that she has been tight. States that she has had a fever with a T-max of 100.8 ?F today. States that she has had a few loose bowel movements today. No nausea or vomiting. States she has had a little bit of a sore throat but this is a postnasal drip. No ear pain. No abdominal pain. She denies any personal history of blood clots, reports that her grandmother had a history of PE. On exam, patient appears anxious and uncomfortable. Her heart rate is elevated in the 120s. Patient is for blood pressure of 150/97. She has expiratory wheezes noted primarily in the right upper lobe and the left lower lobe. To a lesser degree, scattered throughout. Section of tachycardia, normal cardiac auscultation. Patient does appear slightly dry with dry mucous membranes. No lower extremity edema or calf tenderness. Concern at this time for potential pulmonary embolism particularly given her recent travel. Patient is also had sore throat and some GI upset as well as fever, also considered infectious etiology. She has been COVID and flu was tested both of which were negative this week. Plan to obtain chest x-ray, baseline labs to include D-dimer. Will give duo nebulizer, she has been using albuterol at home with slight improvement. Patient reports feeling improved, looks much better. Her HR has normalized. Lungs now clear. She has a inhaler at home which she has also found beneficial. Labs reviewed. D-dimer elevated, will move forward ith CTA and discussed with patient who is in agreement. Troponin WNL, no right sided strain or acute ischemic changes on ECG. FINDINGS: Tubes, catheters and devices: Right chest port in satisfactory position. Pulmonary arteries: Miniscule pulmonary embolus, distal subsegmental right lower lobe pulmonary artery.Aorta: No aortic aneurysm. No aortic dissection. Lungs: The lungs appear somewhat hyperinflated however no focal areas of emphysema are seen which is similar. Minor linear scarring in both lung bases also similar. No new airspace disease or suspicious lesions. Pleural spaces: No pneumothorax. No pleural effusion. Heart: No cardiomegaly. No pericardial effusion. RV to LV ratio not elevated beyond 1.0. Lymph nodes: No enlarged lymph nodes. Liver: As the previous study there is a 13 mm hyperdense nodule in the right upper quadrant unclear if this is associated with the gallbladder wall or this is an exophytic hepatic nodule. Similar to prior. Bones/joints: Chronic bony changes with no acute fracture. Soft tissues: No suspicious lesions. IMPRESSION: 1. Miniscule pulmonary embolus, distal subsegmental right lower lobe pulmonary artery. 2. Incidental findings as described. Consulted with hospitalist regarding admission. Discussed the case, patient's history presentation precipitating factors. He advised that patient risk is relatively low and that this was deemed a minuscule pulmonary embolus, he felt the patient could be started on Eliquis and discharged home. Discussed findings and plan with the patient. She prefers d/c to home. Feels comfortable with oral anticoagulation, we discussed risks of this medicatio and need to return with any signs of bleeding. Advised avoidance of NSAIDS. Advised she needs to call PCP in the AM to schedule prompt f/u. Will give coupon for medication. Will give first dose now, send home enough for tomorrow morning. Discussed the recommendations at length with the patient. All of her questions and concerns were addressed, she is in agreement with this plan. [facility] General Date/Time Provider Initiated Documentation: 04/17/22 21:44 . Limitations to Documentation: no limitations . Information obtained by: patient and RN notes reviewed . History of Present Illness 61 year old F presents to the emergency department with the chief complaint of shortness of breath, described as mild, and is localized to the chest. Patient started experiencing this day(s) and it has been constant. Immobilization improves symptom(s), and Medication improves symptom(s), Movement worsens symptoms . Patient notes cough and shortness of breath. Patient did receive the following treatments prior to arrival, other (albuterol) Related Data Home Medications Medication Instructions Recorded Confirmed acetaminophen 325 mg capsule 650 mg PO ONCE PRN 10/09/21 04/22/22 rituximab IV .qom 10/09/21 04/22/22 albuterol sulfate 90 mcg/actuation 2 puff inhalation Q6H PRN 04/14/22 04/22/22 aerosol inhaler (Proventil HFA) shortness of breath or wheezing #8.5 grams benzonatate 100 mg capsule 100 mg PO TID PRN cough #14 caps 04/14/22 04/22/22 (Tom Smith) apixaban 5 mg tablet (Eliquis) 5 mg PO BID 30 days #60 tabs 04/18/22 04/22/22 apixaban 5 mg tablet 5 mg PO BID blood thinner #180 tabs 04/21/22 04/21/22 Previous Rx's Medication Instructions Recorded albuterol sulfate 90 mcg/actuation 2 puff inhalation Q6H PRN 04/14/22 aerosol inhaler (Proventil HFA) shortness of breath or wheezing #8.5 grams benzonatate 100 mg capsule 100 mg PO TID PRN cough #14 caps 04/14/22 (Tessalon Luis) apixaban 5 mg tablet (Eliquis) 5 mg PO BID 30 days #60 tabs 04/18/22 apixaban 5 mg tablet 5 mg PO BID blood thinner #180 tabs 04/21/22 Allergies Allergy/AdvReac Type Severity Reaction Status Date / Time amoxicillin [From Augmentin] Allergy Verified 04/21/22 13:28 clavulanic acid Allergy Verified 04/21/22 13:28 [From Augmentin] doxycycline AdvReac Intermediate Upset Verified 04/21/22 13:28 Stomach, vomiting General Stated Complaint: SOB ERIKA: 3 Review of Systems Constitutional Constitutional: Reports as per HPI, Denies chills, Denies fever(s), Denies headache(s) and Denies poor appetite Eyes Eyes: Denies change in vision ENT Ears, Nose, Mouth, and Throat: Denies dizziness and Denies headache(s) Cardiovascular Cardiovascular: Reports as per HPI, Denies chest pain, Denies claudication, Denies leg ulcers, Denies leg edema, Reports dyspnea and Reports dyspnea on exertion Respiratory Respiratory: Reports as per HPI, Denies chest congestion, Denies cough, Denies pain on inspiration, Denies pain with cough, Reports dyspnea and Reports dyspnea on exertion Gastrointestinal Gastrointestinal: Reports as per HPI, Denies abdominal pain, Denies diarrhea, Denies nausea and Denies vomiting Musculoskeletal Musculoskeletal: Reports as per HPI and Denies back pain Integumentary/Breasts Skin/Breast: Reports as per HPI and Denies rash Neurologic Neurologic: Reports as per HPI, Denies dizziness and Denies headache(s) PFSH All Active Problems (Updated 04/21/22 @ 17:01 by Gloria Allen RN) Class 2 severe obesity with serious comorbidity and body mass index (BMI) of 35.0 to 35.9 in adult (Acute) [place] [facility] [place] Single subsegmental pulmonary embolism without acute cor pulmonale (Acute) Bilateral wheezing (Acute) Complex ovarian cyst (Acute) [place] [facility] [place] [place] 02[place] .. planning salping-oopherectomy [ ] Hypokalemia (Acute) Hx, per 08/2021 ? Postmenopausal (Chronic) Estrad[place] [facility] [place] (instead of premarin).. Hx DesquInflammVaginitis, Clindamycin, 01/2021. Mantle cell lymphoma (Chronic 05/2017) S/p [address] [facility] Regimen chemo and autologous stem cell transplant 01/16 Ypnxz-[id number] deficiency (Chronic) PiMS Phenotype Prediabetes (Chronic) Generalized anxiety disorder (Chronic) Diverticulosis (Chronic) Sigmoid and descending colon. 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 and surgery helped ID lymphoma! ik/10/09/21 Family History Mother , at 54 of alpha-1 antitrypsin deficiency Urhjt-7-hrnhxdmblln deficiency Father Essential hypertension Hyperlipidemia Prostate cancer Son , at 28 of carfentanil overdose in 2017 Substance abuse Maternal Grandfather , at 58 of alpha-1 antitrypsin deficiency complications Pobsm-7-mghlqrxktxy deficiency Liver failure Maternal Grandmother , at 85 Essential hypertension Heart disease Stroke Myocardial infarction Paternal Grandfather Essential hypertension Heart disease Hyperlipidemia Stroke Prostate cancer Paternal Grandmother No problems noted. Social History Smoking/Tobacco Use Status: Former Tobacco Use Quit Date: 11/29/90 Tobacco: How many years used: 15 Second Hand Exposure: No Smoking risk assessment performed?: Yes Alcohol Intake: current Alcohol Intake frequency: holidays/special occasions only Alcohol type: beer, wine and hard liquor Drug use: Never Substance use type: does not use Caregiver/Support person: No Household members: other Details: Pt's father and his (her aunt who dad after mom ) Housing: house Communication Needs: Corrective Lenses Education Level: college Details: 2017 BSN Do you need help understanding health information?: Never 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 Pets and animals: Yes Pets and animals: cat(s) and dog(s) Sexually active: No Do you think of yourself as: straight/heterosexual Current gender identity: female What is your relationship status?: How often do you talk on the phone with friends or family?: once per week How often do you get together with friends or relatives?: once per week How often do you attend sikh or samaritan services?: decline to answer Do you belong to any clubs or organized social groups?: no Panel score (0-1 are the most socially isolated patients): 0 What type of physical activity do you participate in: walking Duration: 30-45 minutes/day Frequency: 3-4 times per week Swathi/Mandaeism: Latter-Day Special swathi needs: Yes Seatbelt use: always Helmet use: Yes Drive intox or ride w/intox commercial relief driver: No Do you feel safe at home: Yes Do you feel safe in your relationship?: Yes Additional Social history: Patient currently is not in relationship. She has good family support and a network of friends. Female Reproductive History Menstrual Menopause type: natural Date of menopause: 11/29/07 History History 2 Para 1 Hx # Term Pregnancies Multiple births Hx # Pregnancies Ectopic pregnancies AB induced 1 Hx Number of Living Children 0 AB spontaneous Exam Const General: cooperative, healthy appearing, uncomfortable, no acute distress, well developed and anxious Nutritional Appearance: average body habitus and well nourished Orientation: alert, awake and oriented x3 HENMI Head: normal to inspection Ears: hearing grossly normal bilaterally Mouth: moist mucous membranes Chest Chest: normal inspection of the chest, normal palpation of entire chest wall and no crepitus Resp Effort & Inspection: able to speak in complete sentences, no respiratory distress and tachypneic Auscultation: no rales, no rhonchi and wheezes Cardio Rate: tachycardic Rhythm: regular rhythm Heart Sounds: S1 normal and S2 normal GI Inspection: normal to inspection, no edema and non-distended Palpation: soft, no hepatosplenomegaly, not firm, no guarding, not rigid and nontender Auscultation: normal bowel sounds Back/Spine/Pelvis Back: no CVA tenderness Thoracic/Lumbar Spine: thoracic and lumbar spine normal to inspection Skin General skin exam: no rashes or lesions noted Trauma: no lacerations or abrasions Neuro General: patient alert, patient awake and patient oriented x3 Cognition: normal cognition Speech: speech normal Gait: normal gait Extrem General: normal to inspection, capillary refill normal, no pedal edema, no calf tenderness and normal gait Psych Appearance: grossly normal and well kempt Mental Status: mental status grossly normal Speech and Movement: speech and movement normal Course Vital Signs Vital signs: Vital Signs Pulse 126 H 04/17/22 21:20 Respiratory Rate 04/17/22 21:20 Blood Pressure 150/97 H 04/17/22 21:20 Pulse Oximetry 94 04/17/22 21:20 Temperature 37.3 C 04/17/22 21:30 Temperature Source Oral 04/17/22 21:30 Pulse 126 H 04/17/22 21:20 Respiratory Rate 19 04/17/22 21:20 Blood Pressure 150/97 H 04/17/22 21:20 Blood Pressure Position Sitting 04/17/22 21:20 Pulse Oximetry 94 04/17/22 21:20 Oxygen Delivery Method Room Air 04/17/22 21:20 Oxygen Flow Rate 0 04/17/22 21:20 Pain Level 0 04/17/22 21:20
--- NOTE | 2022-04-17 21:45 | RT.EKG_ITS ---
APPROVED REPORT Exam: Resting ECG Reason for Exam: tachy, SOB Patient Location: E HR:109 bpm ECG Measurements Heart Rate [address] 159 P 72 QRSd 85 QRS 31 QT 342 T 50 QTc 462 Conclusion Sinus tachycardia...rate> 99
--- NOTE | 2022-04-17 21:45 | DI.RAD_ITS ---
Exam(s) XR PORTABLE CHEST AP EXAM: XR PORTABLE CHEST AP CLINICAL HISTORY: cough, SOB TECHNIQUE: 2D digital imaging was performed of the chest. One image was obtained. An AP view was ob tained. COMPARISON: CR CHEST 2 VIEWS PA,LAT from 09/23/2017 FINDINGS: MEDIASTINUM: Normal. HEART: Normal. PULMONARY VASCULATURE: Normal. LUNGS: There is linear atelectasis in the left lung base. The lungs are otherwise clear. PLEURAL SPACE: No pleural effusion or pneumothorax. BONE:Within normal limits for the patient's age. OTHER FINDINGS:There is a right chest port in good position. IMPRESSION: No acute pulmonary findings. DATA REPOSITORY: RADIATION DOSE DELIVERED:
[2022-04-17 22:13] VITALS: RESP 18
[2022-04-17] MEDS: Lactated Ringers 1,000 ML 1000 ML IV (22:16)
[2022-04-17] MEDS: Albuterol/Ipratropium 3 ML UPD VIAL UPD (22:16)
[2022-04-17 22:26] LABS: Abs Immature Grans 0.04 10^3/uL (0.0-0.06); HCT 41.1 % (36.0-46.0); HGB 13.8 g/dL (11.2-15.7); Immature Grans % 0.4; MCH 32.1 pg (27.0-33.0); MCHC 33.6 % (32.0-36.0); MCV 96 fL (80-95); MPV 9.4 fL (8.0-11.0); Platelet Count 217 10^3/uL (130-400); RDW 12.3 % (11.7-14.6); RDW-SD 43.6 fL; WBC 9.71 10^3/uL (4.4-10.8)
[2022-04-17 22:40] LABS: Absolute Lymphocyte Count 1.36 10^3/uL (1.2-3.4); Absolute Monocyte Count 0.68 10^3/uL (0.1-0.8); Absolute Neutrophil Count 7.67 10^3/uL (1.2-6.7); Diff Comment Manual Differential; RBC Morphology Normal
[2022-04-17 22:42] LABS: ALT 32 U/L (14-59); AST 29 U/L (15-37); Albumin 4.3 g/dL (3.4-5.0); Alkaline Phosphatase 115 U/L (46-116); Anion Gap 12.1 mmol/L (3-11); BUN 15 mg/dL (7-18); Bilirubin, Total 0.7 mg/dL (0.2-1.0); CO2 24.9 mmol/L (21.0-32.0); Calcium 9.9 mg/dL (8.5-10.1); Chloride 102 mmol/L (98-107); Estimated GFR 56.37 (mL/min/1.73m2); Glucose 129 mg/dL (74-106); Magnesium 1.6 mg/dL (1.8-2.4); Potassium 3.5 mmol/L (3.5-5.1); Sodium 139 mmol/L (136-145); Total Protein 8.2 g/dL (6.4-8.2); Troponin I < 50 ng/L (<or=60)
[2022-04-17 22:55] LABS: D-Dimer 940 ng/mlFEU (<500)
--- NOTE | 2022-04-17 23:00 | DI.CT_ITS ---
Exam(s) CT CHEST PE CTA EXAM: CT CHEST PE CTA CLINICAL HISTORY: SOB, elevated d-dimer. TECHNIQUE: Imaging Protocol: Axial CT angiography was performed with multi-slice acquisition and mu lti-planar and/or 3D reconstructions. CONTRAST MATERIAL: Intravenous: Visipaque 320 contrast volume:100 mL COMPARISON: CT CHEST WITH CONTRAST from 05/08/[address] ABDOMEN PELVIS W from 03/14/2021 FINDINGS: Tracheobronchial tree: Patent where visualized. Pulmonary parenchyma: No consolidation or dominant measurable mass. No architectural distortion. Ther e is a calcified granuloma in the left upper lobe. There is linear atelectasis or scarring in the melquiades ng bases. Pulmonary Arteries: There are filling defects seen in branches of the pulmonary arteries to the right lower lobe consistent with pulmonary emboli. Mediastinum and Kaur: No dominant adenopathy or fluid collection. The esophagus is unremarkable. Th ere is a small hiatal hernia. Visualized thyroid gland: Unremarkable. Pleura: No effusion or pneumothorax. Heart: The heart is not dilated. No coronary artery calcifications are seen. No pericardial effusion. There is no evidence of heart strain. Aorta: Thoracic aorta non-dilated. No evidence of dissection. Upper abdomen: Unremarkable. Tubes, Catheters, and Lines: There is an indwelling central venous catheter in good position. Soft tissues: Unremarkable. Bones: Within normal limits for the patient's age. IMPRESSION: 1. Mild pulmonary embolic disease in the right lower lobe. No evidence of right heart strain. 2. No other acute pulmonary process. RADIATION DOSE DELIVERED: 550.24mGy.cm Total DLP DATA REPOSITORY: All CT scans at this facility are submitted to the National Radiology Data Registry (NRDR) Dose Index Registry (DIR) with the [employer] (ACR). RADIATION OPTIMIZATION: All CT scans at this facility use at least one of these dose optimization te chniques: automated exposure control; mA and/or kV adjustment per patient size (includes targeted exa ms where dose is matched to clinical indication); or iterative reconstruction.
--- NOTE | 2022-04-17 23:01 | DI.VRAD_ITS ---
PROCEDURE INFORMATION: Exam: XR Chest Exam date and time: 04/17/2022 22:34 Age: 61 years old Clinical indication: Cough and shortness of breath; Additional info: Cough, SOB TECHNIQUE: Imaging protocol: XR of the chest. Views: 1 view. COMPARISON: CR CHEST 2 VIEWS PA,LAT 09/23/2017 20:10 FINDINGS: Tubes, catheters and devices: Right chest port in satisfactory position. Lungs: No consolidation. Pleural spaces: No pleural effusion. No pneumothorax. Heart/Mediastinum: No cardiomegaly. Bones/joints: No acute fracture. IMPRESSION: Negative portable chest. Dictated and Authenticated by: Ning Westbrook MD. Ordering:GELACIO Callahan MD
--- NOTE | 2022-04-18 00:05 | DI.VRAD_ITS ---
Addendum created by Ning Westbrook MD on 04/18/2022 12:06:07 AM EDT: THIS REPORT CONTAINS FINDINGS THAT MAY BE CRITICAL TO PATIENT CARE. The pertinent findings were verbally communicated via telephone conference with FAY MORALES at 00:05 EDT on 04/18/2022. The findings were acknowledged and understood. Initial report created on 04/18/2022 12:04:42 AM EDT: PROCEDURE INFORMATION: Exam: CTA Chest With Contrast Exam date and time: 04/17/2022 23:45 Age: 61 years old Clinical indication: Shortness of breath and other: Elevated d dimer; Additional info: SOB, elevated d dimer TECHNIQUE: Imaging protocol: Computed tomographic angiography of the chest with contrast. 3D rendering (Not supervised by radiologist): MIP and/or 3D reconstructed images were created by the technologist. Radiation optimization: All CT scans at this facility use at least one of these dose optimization techniques: automated exposure control; mA and/or kV adjustment per patient size (includes targeted exams where dose is matched to clinical indication); or iterative reconstruction. Contrast material: VISPAQUE 320; Contrast volume: 100 ml; Contrast route: INTRAVENOUS (IV); COMPARISON: CT CHEST WITH CONTRAST 05/08/2016 13:14 FINDINGS: Tubes, catheters and devices: Right chest port in satisfactory position. Pulmonary arteries: Miniscule pulmonary embolus, distal subsegmental right lower lobe pulmonary artery. Aorta: No aortic aneurysm. No aortic dissection. Lungs: The lungs appear somewhat hyperinflated however no focal areas of emphysema are seen which is similar. Minor linear scarring in both lung bases also similar. No new airspace disease or suspicious lesions. Pleural spaces: No pneumothorax. No pleural effusion. Heart: No cardiomegaly. No pericardial effusion. RV to LV ratio not elevated beyond 1.0. Lymph nodes: No enlarged lymph nodes. Liver: As the previous study there is a 13 mm hyperdense nodule in the right upper quadrant unclear if this is associated with the gallbladder wall or this is an exophytic hepatic nodule. Similar to prior. Bones/joints: Chronic bony changes with no acute fracture. Soft tissues: No suspicious lesions. IMPRESSION: 1. Miniscule pulmonary embolus, distal subsegmental right lower lobe pulmonary artery. 2. Incidental findings as described. Dictated and Authenticated by: Ning Westbrook MD. Ordering:GELACIO Callahan MD
[2022-04-18] MEDS: Apixaban 5 MG TAB 10 MG PO ×2 (01:10)
[2022-04-18 01:11] VITALS: BP 138/61; PULSE 92; RESP 18; O2SAT 94
== END 2022-04-18 01:12 | disposition home or self-care (01) ==
PROVIDERS: Emergency Provider Physician Assistant; PCP Student in an Organized Health Care Education/Training Program
DX: I26.93 Single subsegmental thrombotic pulmonary embolism without acute cor pulmonale (principal); R06.2 Wheezing; R06.02 Shortness of breath; R05.1 Acute cough
CPT/HCPCS: 36415; 71275; 80053; 93005; 96360; 96361; 99285; 71045; 83735; 84484; 85025; 85379; 93010; J7620

== ENCOUNTER 2022-04-29 03:31 | Outpatient (RCR) | payer BC, SELFPAY ==
[2022-04-29] MEDS: Normal Saline Flush 10 ML SYR IVP (09:12)
[2022-04-29 09:19] LABS: Abs Immature Grans 0.01 10^3/uL (0.0-0.06); Absolute Basophil Count 0.04 10^3/uL (0.0-0.2); Absolute Eosinophil Count 0.05 10^3/uL (0.0-0.7); Absolute Lymphocyte Count 1.31 10^3/uL (1.2-3.4); Absolute Monocyte Count 0.93 10^3/uL (0.1-0.8); Absolute Neutrophil Count 4.16 10^3/uL (1.2-6.7); Basophils % 0.6; Eosinophils % 0.8; HCT 39.4 % (36.0-46.0); Immature Grans % 0.2; Lymphocytes % 20.2; MCH 32.2 pg (27.0-33.0); MCV 98 fL (80-95); MPV 9.1 fL (8.0-11.0); Monocytes % 14.3; Neutrophils % 63.9; Platelet Count 253 10^3/uL (130-400); RBC 4.04 10^6/uL (3.93-5.22); RDW 12.7 % (11.7-14.6); RDW-SD 45.5 fL
[2022-04-29 09:33] LABS: ALT 41 U/L (14-59); AST 34 U/L (15-37); Alkaline Phosphatase 111 U/L (46-116); Anion Gap 6.4 mmol/L (3-11); BUN 14 mg/dL (7-18); Bilirubin, Total 0.6 mg/dL (0.2-1.0); CO2 27.6 mmol/L (21.0-32.0); Calcium 9.1 mg/dL (8.5-10.1); Chloride 105 mmol/L (98-107); Estimated GFR 56.37 (mL/min/1.73m2); Glucose 111 mg/dL (74-106); LDH 216 U/L (81-234); Sodium 139 mmol/L (136-145); Total Protein 7.6 g/dL (6.4-8.2)
== END 2022-05-28 23:59 | disposition home or self-care (01) ==
LOC: INF 03:31
PROVIDERS: Internal Medicine Hematology & Oncology; PCP Student in an Organized Health Care Education/Training Program; Visit Provider Internal Medicine Hematology & Oncology
DX: C83.10 Mantle cell lymphoma, unspecified site (principal); Z45.2 Encounter for adjustment and management of vascular access device
CPT/HCPCS: 36591; 80053; 83615; 85025

== ENCOUNTER 2022-04-30 09:48 | Emergency (ER) | payer BC, SELFPAY ==
--- NOTE | 2022-04-30 09:45 | RT.EKG_ITS ---
APPROVED REPORT Exam: Resting ECG Reason for Exam: Dyspnea Patient Location: E HR:113 bpm ECG Measurements Heart Rate 113 AXIS MO 153 P 76 QRSd 84 QRS 58 QT 332 T 59 QTc 457 Conclusion Sinus tachycardia...rate> 99
[2022-04-30 09:54] VITALS: BP 171/95; PULSE 118; RESP 18; TEMP 36.9; O2SAT 94
--- NOTE | 2022-04-30 10:15 | DI.CT_ITS ---
Exam(s) CT CHEST PE CTA EXAM: CT CHEST PE CTA CLINICAL HISTORY: PE 04/17, Cancer Pt, tachycardia Dyspnea. TECHNIQUE: Imaging Protocol: CT angiography of the chest was performed using pulmonary embolus maye col. Multi planar reconstructions were performed. CONTRAST MATERIAL: Intravenous: Omnipaque 350 Contrast volume: 100 cc COMPARISON: CT CT CHEST PE CTA from 04/17/2022 FINDINGS: CHEST: Distal tip of right supra clavi in Port-A-Cath is in the SVC. PULMONARY ARTERIES: There are no obvious intraluminal filling defects to suggest acute pulmonary embo li.The previously described miniscule pulmonary embolus in a distal subsegmental right lower lobe pul monary artery is less evident on the present study. LUNGS: There are no infiltrates nor evidence of pulmonary infarction.. No ominous pulmonary nodules. No pleural effusions. MEDIASTINUM: There is no hilar nor mediastinal adenopathy. Visualized thyroid unremarkable. CARDIAC: Heart size is upper normal. There is no pericardial effusion.Caliber of the thoracic aorta is within normal limits. There is no significant shift of the interventricular septum. PARTIALLY VISUALIZED UPPERMOST ABDOMEN: No obvious findings OSSEOUS: No significant osseous lesions.. IMPRESSION: 1. No evidence of acute pulmonary emboli. Previously described meniscal pulmonary embolus in a right lower lobe subsegmental vessel is not evident on the present study. No evidence of pulmonary infarc tion.No pleural effusions. 2. No intrathoracic adenopathy. Report called by myself to ER physician RADIATION DOSE DELIVERED: 683.77mGy.cm Total DLP DATA REPOSITORY: All CT scans at this facility are submitted to the National Radiology Data Registry (NRDR) Dose Index Registry (DIR) with the [employer] (ACR). RADIATION OPTIMIZATION: All CT scans at this facility use at least one of these dose optimization te chniques: automated exposure control; mA and/or kV adjustment per patient size (includes targeted exa ms where dose is matched to clinical indication); or iterative reconstruction.
--- NOTE | 2022-04-30 10:18 | ED.GENADUL_ITS ---
Discharge Plan Disposition Patient Disposition: HOME Condition: Improving Discharge Details Clinical Impression: Bronchospasm Primary Care Provider: Tiffany Santiago ED Provider: Roman Grimm Home Meds and New Rx's Prescriptions: New guaifenesin [Mucinex] 600 mg tablet extended release 12hr 600 mg PO Q12H PRN (Reason: cough) Qty: 10 0RF prednisone 50 mg tablet 50 mg PO DAILY 5 Days Qty: 5 0RF ipratropium-albuterol 0.5 mg-3 mg(2.5 mg base)/3 mL solution for nebulization 3 ml inhalation Q6H PRNQty: 90 0RF Continued acetaminophen 325 mg capsule 650 mg PO ONCE PRN rituximab IV .qom albuterol sulfate [Proventil HFA] 90 mcg/actuation HFA aerosol inhaler 2 puff inhalation Q6H PRN (Reason: shortness of breath or wheezing) Qty: 8.5 0RF apixaban 5 mg tablet 5 mg PO BID Qty: 180 3RF benzonatate [Tessalon Perles] 100 mg capsule 100 mg PO TID PRN (Reason: cough) Qty: 14 0RF No Action Eliquis 5 mg tablet 5 mg PO BID 30 Days Qty: 60 0RF Rx Instructions: 10mg twice daily for the next week then transition to 5mg twice daily Discharge Instructions Additional Instructions: Please follow-up with Dr. Tiffany Nogueira in clinic for recheck Take prednisone as prescribed. May use the provided DuoNeb via nebulizer as needed for cough or congestion. Return to the emergency department for any acute concerns. Continue your routine medications. Medical Decision Making This is a pleasant and delightful 61-year-old female who has history of lymphoma, presents with history of cough since April 12, diagnosed with PE on April 25 for which she has been taking Eliquis. She presents today due to ongoing tachycardia, weakness, dyspnea at home. She not had syncope, she denies chest pain. No lower EXTR pain or swelling. On arrival she is tachycardic to approximately 118, oxygenating 94% on room air. She is high risk for breakthrough PE given her history of carcinoma and anticoagulation with Eliquis. 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 Screening EKG obtained. Labs are included below. Blood cell count 7, hematocrit 40 and platelets 237. Chemistries unremarkable with a normal troponin. SARS-CoV-2/influenza/RSV negative. Given her history of recent PE and ongoing dyspnea, patient did undergo CT scan of the chest: No infiltrates or evidence of pulmonary infarction. No evidence of previously noted right lower lobe pulmonary embolus. Patient appears to have had resolution of her pulmonary embolism. She will require ongoing anticoagulation, but Eliquis does appear to be appropriate therapy at this time. Patient was given DuoNeb updraft due to some wheezing with cough with improvement. Will trial nebulizer at home. Feel she will benefit from a brief burst of prednisone for its anti-inflammatory effect. She is stable and appropriate for trial of outpatient management at this time. With her history of alpha-1 antitrypsin, noted obstructive airway disease in the past I do feel the trial of DuoNeb for nebulizer treatment at home is very reasonable. Lab Data Lab results reviewed: Yes I reviewed the patient's lab results. Labs: Laboratory Results - last 24 hr 04/30/22 04/30/22 04/30/22 10:48 10:48 10:48 WBC 7.39 RBC 4.22 Hgb 13.5 Hct 40.7 MCV 96 H MCH 32.0 MCHC 33.2 RDW 12.7 Plt Count 237 MPV 9.1 Immature Gran % 0.3 Neutrophils % 72.3 Lymphocytes % 14.6 Monocytes % 12.2 Eosinophils % 0.3 Basophils % 0.3 Nucleated RBC % 0.0 Absolute Neutrophils 5.35 Absolute Lymphocytes 1.08 L Absolute Monocytes 0.90 H Absolute Eosinophils 0.02 Absolute Basophils 0.02 PT 12.0 H INR 1.2 H APTT 30.3 H Sodium 140 Potassium 3.8 Chloride 105 Carbon Dioxide 25.8 Anion Gap 9.2 BUN 11 Creatinine 0.9 Estimated GFR/1.73 m2 >= 60.00 Glucose 109 H Calcium 9.8 Magnesium 1.7 L Total Bilirubin 0.6 AST 37 ALT 42 Alkaline Phosphatase 114 Troponin I < 50 Total Protein 8.0 Albumin 4.1 COVID-19 Source SARS-CoV-2 (PCR) Influenza Type A (PCR) Influenza Type B (PCR) RSV (PCR) 04/30/22 10:48 WBC RBC Hgb Hct MCV MCH MCHC RDW Plt Count MPV Immature Gran % Neutrophils % Lymphocytes % Monocytes % Eosinophils % Basophils % Nucleated RBC % Absolute Neutrophils Absolute Lymphocytes Absolute Monocytes Absolute Eosinophils Absolute Basophils PT INR APTT Sodium Potassium Chloride Carbon Dioxide Anion Gap BUN Creatinine Estimated GFR/1.73 m2 Glucose Calcium Magnesium Total Bilirubin AST ALT Alkaline Phosphatase Troponin I Total Protein Albumin COVID-19 Source Nasopharynx SARS-CoV-2 (PCR) Negative Influenza Type A (PCR) Negative Influenza Type B (PCR) Negative RSV (PCR) Negative HPI General Mode of arrival: ambulatory . Date/Time Provider Initiated Documentation: 04/30/22 09:53 . Limitations to Documentation: no limitations . Information obtained by: patient . History of Present Illness 61 year old F presents to the emergency department with the chief complaint of Cough, dyspnea, recent PE, described as mild, Quality is described as dull, and is localized to the chest. Patient reports no radiation. Patient started experiencing this day(s) and it has been constant. Rest improves symptom(s), Movement worsens symptoms . Patient notes cough, shortness of breath and weakness; denies chest pain, fever/chills and syncope. Patient did receive the following treatments prior to arrival, none Related Data Home Medications Medication Instructions Recorded Confirmed acetaminophen 325 mg capsule 650 mg PO ONCE PRN 10/09/21 04/30/22 rituximab IV .qom 10/09/21 04/22/22 albuterol sulfate 90 mcg/actuation 2 puff inhalation Q6H PRN 04/14/22 04/30/22 aerosol inhaler (Proventil HFA) shortness of breath or wheezing #8.5 grams apixaban 5 mg tablet (Eliquis) 5 mg PO BID 30 days #60 tabs 04/18/22 04/30/22 apixaban 5 mg tablet 5 mg PO BID blood thinner #180 tabs 04/21/22 04/21/22 benzonatate 100 mg capsule 100 mg PO TID PRN cough #14 caps 04/30/22 (Tessalnicole Smith) guaifenesin 600 mg tablet, 600 mg PO Q12H PRN cough #10 tabs 04/30/22 extended release 12 hr (Mucinex) ipratropium 0.5 mg-albuterol 3 mg 3 ml inhalation Q6H PRN #90 mL 04/30/22 (2.5 mg base)/3 mL nebulization soln prednisone 50 mg tablet 50 mg PO DAILY 5 days #5 tabs 04/30/22 Previous Rx's Medication Instructions Recorded albuterol sulfate 90 mcg/actuation 2 puff inhalation Q6H PRN 04/14/22 aerosol inhaler (Proventil HFA) shortness of breath or wheezing #8.5 grams apixaban 5 mg tablet (Eliquis) 5 mg PO BID 30 days #60 tabs 04/18/22 apixaban 5 mg tablet 5 mg PO BID blood thinner #180 tabs 04/21/22 benzonatate 100 mg capsule 100 mg PO TID PRN cough #14 caps 04/30/22 (Tom Smith) guaifenesin 600 mg tablet, 600 mg PO Q12H PRN cough #10 tabs 04/30/22 extended release 12 hr (Mucinex) ipratropium 0.5 mg-albuterol 3 mg 3 ml inhalation Q6H PRN #90 mL 04/30/22 (2.5 mg base)/3 mL nebulization soln prednisone 50 mg tablet 50 mg PO DAILY 5 days #5 tabs 04/30/22 Allergies Allergy/AdvReac Type Severity Reaction Status Date / Time amoxicillin [From Augmentin] Allergy Verified 04/30/22 09:59 clavulanic acid Allergy Verified 04/30/22 09:59 [From Augmentin] doxycycline AdvReac Intermediate Upset Verified 04/30/22 09:59 Stomach, vomiting General Stated Complaint: SOB ERIKA: 2 Review of Systems Narrative: Cough with congestion, minimal production of white sputum. No fever. No syncope. 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 planning salping-oopherectomy [ ] Hypokalemia (Acute) Hx, per 08/2021 ? Postmenopausal (Chronic) Estradiol per [facility] [place] Process Safety Manager (instead of premarin).. Hx DesquInflammVaginitis, Clindamycin, 01/2021. Mantle cell lymphoma (Chronic 05/2017) S/p 6 cycles of [place] Regimen chemo and autologous stem cell transplant 01/16 Plchq-[id number] deficiency (Chronic) PiMS Phenotype Prediabetes (Chronic) Generalized anxiety disorder (Chronic) Diverticulosis (Chronic) Sigmoid and descending colon. 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 and surgery helped ID lymphoma! ik10/09/21 Family History Mother , at 54 of alpha-1 antitrypsin deficiency Wjjce-0-zusiddrhver deficiency Father Essential hypertension Hyperlipidemia Prostate cancer Son , at 28 of carfentanil overdose in 2017 Substance abuse Maternal Grandfather , at 58 of alpha-1 antitrypsin deficiency complications Xkqhu-[id number] deficiency Liver failure Maternal Grandmother , at 85 Essential hypertension Heart disease Stroke Myocardial infarction Paternal Grandfather Essential hypertension Heart disease Hyperlipidemia Stroke Prostate cancer Paternal Grandmother No problems noted. Social History Smoking/Tobacco Use Status: Former Tobacco Use Quit Date: 11/29/90 Tobacco: How many years used: 15 Second Hand Exposure: No Smoking risk assessment performed?: Yes Alcohol Intake: current Alcohol Intake frequency: holidays/special occasions only Alcohol type: beer, wine and hard liquor Drug use: Never Substance use type: does not use Caregiver/Support person: No Household members: other Details: Pt's father and his (her aunt who dad after mom ) Housing: house Communication Needs: Corrective Lenses Education Level: college Details: 2017 BSN Do you need help understanding health information?: Never 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 Pets and animals: Yes Pets and animals: cat(s) and dog(s) Sexually active: No Do you think of yourself as: straight/heterosexual Current gender identity: female What is your relationship status?: How often do you talk on the phone with friends or family?: once per week How often do you get together with friends or relatives?: once per week How often do you attend uatsdin or gnosticist services?: decline to answer Do you belong to any clubs or organized social groups?: no Panel score (0-1 are the most socially isolated patients): 0 What type of physical activity do you participate in: walking Duration: 30-45 minutes/day Frequency: 3-4 times per week Swathi/Pentecostal: Temple Special swathi needs: Yes Seatbelt use: always Helmet use: Yes Drive intox or ride w/intox taxicab driver: No Do you feel safe at home: Yes Do you feel safe in your relationship?: Yes Additional Social history: Patient currently is not in relationship. She has good family support and a network of friends. Female Reproductive History Menstrual Menopause type: natural Date of menopause: 11/29/07 History History 2 Para 1 Hx # Term Pregnancies Multiple births Hx # Pregnancies Ectopic pregnancies AB induced 1 Hx Number of Living Children 0 AB spontaneous Exam Narrative Exam Narrative: GEN: awake, alert, oriented 3. Pleasant, well groomed, interactive. HEAD: Normocephalic, atraumatic ENT: Mucous membranes moist, oropharynx unremarkable, External ear exam unremarkable EYES: PERRL, EOMI NECK: Full ROM, no CATRACHITA, no menigismus CHEST/RESP: Cough noted, nontender, clear to auscultation bilateral, no wheeze/rhonchi/rales CARDIOVASCULAR: Regular and tachycardic, no murmur, rub ash. 2+ Rad pulse bilateral ABDOMEN: Soft, nontender, no mass. +Bowel sounds EXT: Full ROM, no edema, no rash Neuro: Grossly normal neurologic exam, conversant, interactive. Psych: Speech fluent, thoughts congruent, affect normal Course Vital Signs Vital signs: Vital Signs Temperature 36.9 C 04/30/22 09:54 Pulse 118 H 06/02/22 09:54 Respiratory Rate 18 04/30/22 09:54 Blood Pressure 171/95 H 04/30/22 09:54 Pulse Oximetry 94 04/30/22 09:54 Temperature 36.9 C 04/30/22 09:54 Temperature Source Temporal Artery Scan 04/30/22 09:54 Pulse 118 H 04/30/22 09:54 Respiratory Rate 18 04/30/22 09:54 Respiratory Effort 04/30/22 09:54 Blood Pressure 171/95 H 04/30/22 09:54 Blood Pressure Position Supine 04/30/22 09:54 Pulse Oximetry 94 04/30/22 09:54 Oxygen Delivery Method Room Air 04/30/22 09:54 Oxygen Flow Rate 0 04/30/22 09:54 Pain Level 0 04/30/22 09:54
[2022-04-30 10:51] VITALS: RESP 18
[2022-04-30 10:56] LABS: Abs Immature Grans 0.02 10^3/uL (0.0-0.06); Absolute Basophil Count 0.02 10^3/uL (0.0-0.2); Absolute Eosinophil Count 0.02 10^3/uL (0.0-0.7); Absolute Lymphocyte Count 1.08 10^3/uL (1.2-3.4); Absolute Neutrophil Count 5.35 10^3/uL (1.2-6.7); Basophils % 0.3; Eosinophils % 0.3; HCT 40.7 % (36.0-46.0); HGB 13.5 g/dL (11.2-15.7); Immature Grans % 0.3; Lymphocytes % 14.6; MCHC 33.2 % (32.0-36.0); MCV 96 fL (80-95); MPV 9.1 fL (8.0-11.0); Monocytes % 12.2; Neutrophils % 72.3; Platelet Count 237 10^3/uL (130-400); RBC 4.22 10^6/uL (3.93-5.22); RDW 12.7 % (11.7-14.6); RDW-SD 45.1 fL; WBC 7.39 10^3/uL (4.4-10.8)
[2022-04-30 11:14] LABS: INR 1.2 (0.9-1.1); PTT Activated 30.3 sec (21.0-27.5)
[2022-04-30 11:18] LABS: ALT 42 U/L (14-59); AST 37 U/L (15-37); Albumin 4.1 g/dL (3.4-5.0); Alkaline Phosphatase 114 U/L (46-116); Anion Gap 9.2 mmol/L (3-11); BUN 11 mg/dL (7-18); Bilirubin, Total 0.6 mg/dL (0.2-1.0); CO2 25.8 mmol/L (21.0-32.0); CREATININE 0.9 mg/dL (0.55-1.02); Calcium 9.8 mg/dL (8.5-10.1); Chloride 105 mmol/L (98-107); Glucose 109 mg/dL (74-106); Magnesium 1.7 mg/dL (1.8-2.4); Potassium 3.8 mmol/L (3.5-5.1); Sodium 140 mmol/L (136-145); Troponin I < 50 ng/L (<or=60)
[2022-04-30 11:33] LABS: COVID-19 PCR Negative (Negative); Influenza A PCR Negative (Negative); Influenza B PCR Negative (Negative); RSV PCR Negative (Negative)
[2022-04-30 11:49] LABS: Source Nasopharynx
[2022-04-30] MEDS: Normal Saline Flush 10 ML SYR IVP (12:19)
[2022-04-30] MEDS: Albuterol/Ipratropium 3 ML UPD VIAL UPD (13:11)
[2022-04-30 13:16] VITALS: BP 123/75; PULSE 110; RESP 18; O2SAT 98
[2022-04-30] MEDS: predniSONE 20 MG TAB 60 MG PO (13:49)
[2022-04-30 14:12] VITALS: BP 125/68; PULSE 102; RESP 16; O2SAT 96
== END 2022-04-30 14:22 | disposition home or self-care (01) ==
PROVIDERS: Emergency Provider Emergency Medicine; PCP Student in an Organized Health Care Education/Training Program
DX: J98.01 Acute bronchospasm (principal); R06.00 Dyspnea, unspecified; R00.0 Tachycardia, unspecified; C85.90 Non-Hodgkin lymphoma, unspecified, unspecified site; Z86.711 Personal history of pulmonary embolism; Z20.822 Contact with and (suspected) exposure to COVID-19
CPT/HCPCS: 36415; 71275; 80053; 87637; 93005; 99284; 99285; 83735; 84484; 85025; 85610; 85730; 93010; J7512; J7620

== ENCOUNTER 2022-05-15 20:55 | Outpatient (REF) | payer BC, SELFPAY ==
[2022-05-15 20:01] LABS: Abs Immature Grans 0.03 10^3/uL (0.0-0.06); Absolute Basophil Count 0.04 10^3/uL (0.0-0.2); Absolute Eosinophil Count 0.07 10^3/uL (0.0-0.7); Absolute Lymphocyte Count 1.35 10^3/uL (1.2-3.4); Absolute Monocyte Count 0.76 10^3/uL (0.1-0.8); Absolute Neutrophil Count 5.27 10^3/uL (1.2-6.7); Basophils % 0.5; Eosinophils % 0.9; HCT 42.4 % (36.0-46.0); HGB 13.8 g/dL (11.2-15.7); Immature Grans % 0.4; MCHC 32.5 % (32.0-36.0); MCV 98 fL (80-95); MPV 10.1 fL (8.0-11.0); Monocytes % 10.1; Neutrophils % 70.1; Platelet Count 234 10^3/uL (130-400); RBC 4.31 10^6/uL (3.93-5.22); RDW-SD 47.2 fL; WBC 7.52 10^3/uL (4.4-10.8)
[2022-05-15 20:23] LABS: Hemoglobin A1C 6.3 % (<5.7)
[2022-05-15 20:47] LABS: Calculated LDL 182 mg/dL (<100); Cholesterol 269 mg/dL (<200); Ferritin 348 ng/mL (8-252); HDL Cholesterol 64 mg/dL (40-60); TSH 0.64 uIU/mL (0.36-3.74); Triglyceride 116 mg/dL (<150); Vitamin B12 565 pg/mL (193-986)
[2022-05-17 21:33] LABS: ALT 46 U/L (14-59); AST 32 U/L (15-37); Albumin 4.3 g/dL (3.4-5.0); Alkaline Phosphatase 117 U/L (46-116); Anion Gap 11.8 mmol/L (3-11); BUN 22 mg/dL (7-18); Bilirubin, Total 0.6 mg/dL (0.2-1.0); CO2 24.2 mmol/L (21.0-32.0); CREATININE 1.1 mg/dL (0.55-1.02); Calcium 9.3 mg/dL (8.5-10.1); Chloride 109 mmol/L (98-107); Estimated GFR 50.33 (mL/min/1.73m2); Glucose 107 mg/dL (74-106); Potassium 4.1 mmol/L (3.5-5.1); Sodium 145 mmol/L (136-145); Total Protein 7.5 g/dL (6.4-8.2)
[2022-05-18 09:32] LABS: Insulin 15.9 uIU/mL (<29.0)
[2022-05-18 16:23] LABS: Vitamin D 25 Total 23.9 ng/mL (30-100)
== END 2022-05-15 20:56 | disposition home or self-care (01) ==
LOC: LBN 20:55
PROVIDERS: Visit Provider Surgery
DX: E66.01 Morbid (severe) obesity due to excess calories (principal); Z68.35 Body mass index [BMI] 35.0-35.9, adult
CPT/HCPCS: 80053; 80061; 82306; 82607; 82728; 83036; 83525; 84443; 85025

== ENCOUNTER 2022-07-01 02:39 | Outpatient (RCR) | payer BC, SELFPAY ==
[2022-07-01] MEDS: Normal Saline Flush 10 ML SYR IVP (07:37)
[2022-07-01] MEDS: Heparin 500 UNITS/5 ML SYRINGE IV (07:38)
[2022-07-01 07:52] LABS: Abs Immature Grans 0.01 10^3/uL (0.0-0.06); Absolute Basophil Count 0.05 10^3/uL (0.0-0.2); Absolute Eosinophil Count 0.09 10^3/uL (0.0-0.7); Absolute Lymphocyte Count 1.71 10^3/uL (1.2-3.4); Absolute Monocyte Count 0.78 10^3/uL (0.1-0.8); Absolute Neutrophil Count 4.47 10^3/uL (1.2-6.7); Basophils % 0.7; Eosinophils % 1.3; HCT 40.6 % (36.0-46.0); HGB 13.8 g/dL (11.2-15.7); Immature Grans % 0.1; Lymphocytes % 24.1; MCH 32.9 pg (27.0-33.0); MCV 97 fL (80-95); MPV 9.5 fL (8.0-11.0); Neutrophils % 62.8; Platelet Count 249 10^3/uL (130-400); RDW 12.4 % (11.7-14.6); WBC 7.11 10^3/uL (4.4-10.8)
[2022-07-01 08:07] LABS: ALT 35 U/L (14-59); AST 28 U/L (15-37); Albumin 3.9 g/dL (3.4-5.0); Alkaline Phosphatase 104 U/L (46-116); Anion Gap 5.6 mmol/L (3-11); BUN 14 mg/dL (7-18); Bilirubin, Total 0.5 mg/dL (0.2-1.0); CO2 27.4 mmol/L (21.0-32.0); Chloride 103 mmol/L (98-107); Estimated GFR 56.18 (mL/min/1.73m2); Glucose 96 mg/dL (74-106); LDH 213 U/L (81-234); Potassium 3.4 mmol/L (3.5-5.1); Sodium 136 mmol/L (136-145); Total Protein 7.5 g/dL (6.4-8.2)
== END 2022-07-29 23:59 | disposition home or self-care (01) ==
LOC: INF 02:39
PROVIDERS: Visit Provider Internal Medicine Hematology & Oncology
DX: Z45.2 Encounter for adjustment and management of vascular access device (principal); C83.10 Mantle cell lymphoma, unspecified site; Z29.8 Encounter for other specified prophylactic measures
CPT/HCPCS: 36591; 80053; 96523; 83615; 85025

== ENCOUNTER 2022-08-19 03:30 | Outpatient (CLI) | payer BC, SELFPAY ==
[2022-08-19 07:58] LABS: Abs Immature Grans 0.01 10^3/uL (0.0-0.06); Absolute Basophil Count 0.04 10^3/uL (0.0-0.2); Absolute Eosinophil Count 0.08 10^3/uL (0.0-0.7); Absolute Monocyte Count 0.64 10^3/uL (0.1-0.8); Absolute Neutrophil Count 3.69 10^3/uL (1.2-6.7); Basophils % 0.7; Eosinophils % 1.4; HCT 39.4 % (36.0-46.0); HGB 13.3 g/dL (11.2-15.7); Immature Grans % 0.2; Lymphocytes % 22.6; MCH 32.4 pg (27.0-33.0); MCHC 33.8 % (32.0-36.0); MCV 96 fL (80-95); MPV 9.3 fL (8.0-11.0); Monocytes % 11.1; Platelet Count 247 10^3/uL (130-400); RDW 12.2 % (11.7-14.6); RDW-SD 43.3 fL; WBC 5.76 10^3/uL (4.4-10.8)
[2022-08-19 08:30] LABS: D-Dimer 244 ng/mlFEU (<500)
[2022-08-19 09:18] LABS: ALT 38 U/L (14-59); AST 25 U/L (15-37); Albumin 3.8 g/dL (3.4-5.0); Alkaline Phosphatase 101 U/L (46-116); BUN 17 mg/dL (7-18); Bilirubin, Total 0.7 mg/dL (0.2-1.0); Calcium 9.2 mg/dL (8.5-10.1); Calculated LDL 128 mg/dL (<100); Chloride 106 mmol/L (98-107); Cholesterol 202 mg/dL (<200); Ferritin 206 ng/mL (8-252); Glucose 100 mg/dL (74-106); HDL Cholesterol 52 mg/dL (40-60); Potassium 3.7 mmol/L (3.5-5.1); Sodium 141 mmol/L (136-145); TSH 0.85 uIU/mL (0.36-3.74); Total Protein 7.3 g/dL (6.4-8.2); Triglyceride 113 mg/dL (<150); Vitamin B12 476 pg/mL (193-986)
[2022-08-20 05:50] LABS: Vitamin D 25 Total 36.1 ng/mL (30-100)
[2022-08-20 10:11] LABS: Alpha 1 Antitrypsin,Serum <58 mg/dL (90-200)
[2022-08-20 10:32] LABS: Insulin 15.6 uIU/mL (<29.0)
[2022-08-21 18:20] LABS: Alpha 1 Antitrypsin 23 mg/dL (100 - 190)
== END 2022-08-19 03:31 | disposition home or self-care (01) ==
LOC: LBO 03:30
PROVIDERS: Student in an Organized Health Care Education/Training Program; PCP Family Medicine; Visit Provider Surgery
DX: E66.01 Morbid (severe) obesity due to excess calories (principal); Z68.35 Body mass index [BMI] 35.0-35.9, adult
CPT/HCPCS: 36415; 80053; 80061; 82103; 82306; 82607; 82728; 83036; 83525; 84443; 85025; 85379

== ENCOUNTER 2022-08-20 03:36 | Outpatient (RCR) | payer BC, SELFPAY ==
[2022-08-12] MEDS: Normal Saline Flush 10 ML SYR IVP (08:14)
[2022-08-12 08:23] LABS: Abs Immature Grans 0.02 10^3/uL (0.0-0.06); Absolute Basophil Count 0.02 10^3/uL (0.0-0.2); Absolute Eosinophil Count 0.05 10^3/uL (0.0-0.7); Absolute Lymphocyte Count 1.62 10^3/uL (1.2-3.4); Absolute Monocyte Count 0.94 10^3/uL (0.1-0.8); Absolute Neutrophil Count 6.44 10^3/uL (1.2-6.7); Basophils % 0.2; Eosinophils % 0.6; HCT 40.4 % (36.0-46.0); HGB 13.5 g/dL (11.2-15.7); Immature Grans % 0.2; Lymphocytes % 17.8; MCHC 33.4 % (32.0-36.0); MCV 96 fL (80-95); MPV 9.4 fL (8.0-11.0); Monocytes % 10.3; Neutrophils % 70.9; Platelet Count 259 10^3/uL (130-400); RBC 4.22 10^6/uL (3.93-5.22); RDW 12.1 % (11.7-14.6); RDW-SD 42.6 fL; WBC 9.09 10^3/uL (4.4-10.8)
[2022-08-12 08:50] LABS: ALT 35 U/L (14-59); AST 26 U/L (15-37); Albumin 3.8 g/dL (3.4-5.0); Alkaline Phosphatase 99 U/L (46-116); Anion Gap 6.3 mmol/L (3-11); BUN 14 mg/dL (7-18); Bilirubin, Total 0.6 mg/dL (0.2-1.0); CO2 27.7 mmol/L (21.0-32.0); Calcium 9.2 mg/dL (8.5-10.1); Chloride 106 mmol/L (98-107); Glucose 98 mg/dL (74-106); LDH 183 U/L (81-234); Potassium 3.7 mmol/L (3.5-5.1); Sodium 140 mmol/L (136-145); Total Protein 7.5 g/dL (6.4-8.2)
== END 2022-08-28 23:59 | disposition home or self-care (01) ==
LOC: INF 03:36
PROVIDERS: Internal Medicine Hematology & Oncology; Visit Provider Internal Medicine Hematology & Oncology
DX: Z45.2 Encounter for adjustment and management of vascular access device (principal); C83.10 Mantle cell lymphoma, unspecified site
CPT/HCPCS: 36591; 80053; 96372; Q0221; 83615; 85025

== ENCOUNTER 2022-10-14 02:44 | Outpatient (RCR) | payer BC, SELFPAY ==
[2022-10-14] MEDS: Normal Saline Flush 10 ML SYR IVP (08:33)
[2022-10-14] MEDS: Heparin 500 UNITS/5 ML SYRINGE IV (08:34)
[2022-10-14 08:36] LABS: Abs Immature Grans 0.01 10^3/uL (0.0-0.06); Absolute Basophil Count 0.03 10^3/uL (0.0-0.2); Absolute Eosinophil Count 0.07 10^3/uL (0.0-0.7); Absolute Lymphocyte Count 1.84 10^3/uL (1.2-3.4); Absolute Monocyte Count 0.79 10^3/uL (0.1-0.8); Absolute Neutrophil Count 4.07 10^3/uL (1.2-6.7); Basophils % 0.4; HCT 40.3 % (36.0-46.0); HGB 13.6 g/dL (11.2-15.7); Immature Grans % 0.1; MCH 32.5 pg (27.0-33.0); MCHC 33.7 % (32.0-36.0); MCV 96 fL (80-95); MPV 9.3 fL (8.0-11.0); Monocytes % 11.6; Neutrophils % 59.9; Platelet Count 277 10^3/uL (130-400); RBC 4.19 10^6/uL (3.93-5.22); RDW-SD 46.2 fL; WBC 6.81 10^3/uL (4.4-10.8)
[2022-10-14 08:51] LABS: ALT 30 U/L (14-59); AST 28 U/L (15-37); Alkaline Phosphatase 99 U/L (46-116); Anion Gap 11.3 mmol/L (3-11); BUN 17 mg/dL (7-18); Bilirubin, Total 0.8 mg/dL (0.2-1.0); CO2 25.7 mmol/L (21.0-32.0); Calcium 9.5 mg/dL (8.5-10.1); Chloride 105 mmol/L (98-107); Glucose 104 mg/dL (74-106); LDH 180 U/L (81-234); Potassium 3.7 mmol/L (3.5-5.1); Sodium 142 mmol/L (136-145); Total Protein 7.6 g/dL (6.4-8.2)
[2022-10-14 09:15] LABS: Hemoglobin A1C 5.9 % (<5.7)
== END 2022-10-28 23:59 | disposition home or self-care (01) ==
LOC: INF 02:44
PROVIDERS: PCP Family Medicine; Visit Provider Internal Medicine Hematology & Oncology
DX: C83.10 Mantle cell lymphoma, unspecified site (principal); R19.7 Diarrhea, unspecified; E88.81 Metabolic syndrome and other insulin resistance; Z45.2 Encounter for adjustment and management of vascular access device
CPT/HCPCS: 36415; 36591; 80053; 83036; 83615; 85025

== ENCOUNTER → 2022-11-16 01:37 | Outpatient (CLI) | payer BC, SELFPAY ==
--- NOTE | 2022-11-16 15:10 | DI.MAMMO_ITS ---
Exam(s) MAMMO SCREENING EXAM: MAMMO SCREENING CLINICAL HISTORY: SCREENING FOR BREAST CANCER Z12.39 TECHNIQUE: Mammograms were interpreted according to the usual protocol including computer analysis w [employer] CAD system, tomosynthesis and C-view imaging. COMPARISON: 2012 through 2019 FINDINGS: The breasts are composed of scattered fibroglandular densities, Breast Density category B. No suspicious masses or suspicious microcalcifications are seen. No skin thickening or abnormal axillary lymph nodes are seen. There has been no significant change from prior exams. A port is again noted over the right pectoral muscle. IMPRESSION: BI-RADS Category 1, Negative mammogram Yearly screening mammography is recommended. Breast Density - Category B, scattered fibroglandular densities. A negative radiographic report should not delay biopsy if a dominant or clinically suspicious mass is present. Up to ten percent of cancers are not identified on mammography. A negative report may reinforce clinical impression. Adenosis and dense breasts may obscure an underlying neoplasm. False positive reports average 6 to 10%. Patient will receive a letter notifying them of these results.
== END ==
PROVIDERS: PCP Family Medicine; Visit Provider Family Medicine
DX: Z12.31 Encounter for screening mammogram for malignant neoplasm of breast (principal)
CPT/HCPCS: 77063; 77067

== ENCOUNTER 2022-12-25 02:15 | Outpatient (CLI) | payer BC, SELFPAY ==
[2022-12-25] MEDS: Inhaler, Assist Device 1 EACH MC (11:46)
[2022-12-25] MEDS: Albuterol HFA 18 GM 200 PUFF INH IH (11:46)
--- NOTE | 2022-12-28 15:48 | W.PFT ---
Date of service: 12/25/22 Time of Service: 10:04 Pulmonary Function Test Result Requesting Provider Eulogio Indications: COPD Interpretation Spirometry: There is mild airflow limitation. There is no significant bronchodilator response. Lung Volumes: There is air trapping and hyperinflation. Diffusion Capacity: Normal diffusion. Airway Pressure: Normal airways resistance. Impression Mild airflow obstruction with a technically normal diffusion. Clinical Correlation therefore is recommended.
== END 2022-12-25 02:16 | disposition home or self-care (01) ==
LOC: RT 02:15
PROVIDERS: PCP Family Medicine; Visit Provider Student in an Organized Health Care Education/Training Program
DX: E88.01 Alpha-1-antitrypsin deficiency (principal); R94.2 Abnormal results of pulmonary function studies; J44.9 Chronic obstructive pulmonary disease, unspecified; Z87.891 Personal history of nicotine dependence
CPT/HCPCS: 94060; 94726; 94729

== ENCOUNTER 2023-01-13 01:26 | Outpatient (RCR) | payer BC, SELFPAY ==
[2023-01-13 08:48] LABS: Abs Immature Grans 0.02 10^3/uL (0.0-0.06); Absolute Basophil Count 0.03 10^3/uL (0.0-0.2); Absolute Eosinophil Count 0.06 10^3/uL (0.0-0.7); Absolute Lymphocyte Count 1.71 10^3/uL (1.2-3.4); Absolute Monocyte Count 0.92 10^3/uL (0.1-0.8); Absolute Neutrophil Count 3.34 10^3/uL (1.2-6.7); Basophils % 0.5; HCT 41.3 % (36.0-46.0); HGB 13.7 g/dL (11.2-15.7); Immature Grans % 0.3; Lymphocytes % 28.1; MCH 31.7 pg (27.0-33.0); MCHC 33.2 % (32.0-36.0); MCV 96 fL (80-95); MPV 9.5 fL (8.0-11.0); Monocytes % 15.1; Platelet Count 296 10^3/uL (130-400); RBC 4.32 10^6/uL (3.93-5.22); RDW 12.2 % (11.7-14.6); RDW-SD 43.1 fL; WBC 6.08 10^3/uL (4.4-10.8)
[2023-01-13 09:15] LABS: ALT 30 U/L (14-59); AST 30 U/L (15-37); Alkaline Phosphatase 118 U/L (46-116); Anion Gap 10.2 mmol/L (3-11); BUN 19 mg/dL (7-18); Bilirubin, Total 0.6 mg/dL (0.2-1.0); CO2 28.8 mmol/L (21.0-32.0); CREATININE 0.9 mg/dL (0.55-1.02); Calcium 9.5 mg/dL (8.5-10.1); Chloride 102 mmol/L (98-107); Estimated GFR 72.28 (mL/min/1.73m2); Glucose 94 mg/dL (74-106); LDH 178 U/L (81-234); Potassium 3.3 mmol/L (3.5-5.1); Sodium 141 mmol/L (136-145); Total Protein 7.8 g/dL (6.4-8.2)
== END 2023-01-26 23:59 | disposition home or self-care (01) ==
LOC: INF 01:26
PROVIDERS: PCP Family Medicine; Visit Provider Internal Medicine Hematology & Oncology
DX: C83.10 Mantle cell lymphoma, unspecified site (principal)
CPT/HCPCS: 36415; 80053; 83615; 85025

== ENCOUNTER 2023-04-14 02:27 | Outpatient (RCR) | payer BC, SELFPAY ==
[2023-04-14 13:48] LABS: Abs Immature Grans 0.02 10^3/uL (0.0-0.06); Absolute Basophil Count 0.04 10^3/uL (0.0-0.2); Absolute Eosinophil Count 0.05 10^3/uL (0.0-0.7); Absolute Lymphocyte Count 1.71 10^3/uL (1.2-3.4); Absolute Monocyte Count 0.71 10^3/uL (0.1-0.8); Absolute Neutrophil Count 3.19 10^3/uL (1.2-6.7); Basophils % 0.7; Eosinophils % 0.9; HGB 13.4 g/dL (11.2-15.7); Immature Grans % 0.3; Lymphocytes % 29.9; MCH 31.7 pg (27.0-33.0); MCHC 33.5 % (32.0-36.0); MCV 95 fL (80-95); MPV 9.4 fL (8.0-11.0); Monocytes % 12.4; Neutrophils % 55.8; Platelet Count 265 10^3/uL (130-400); RBC 4.23 10^6/uL (3.93-5.22); RDW 12.7 % (11.7-14.6); RDW-SD 44.1 fL; WBC 5.72 10^3/uL (4.4-10.8)
[2023-04-14 14:00] LABS: ALT 31 U/L (14-59); AST 31 U/L (15-37); Albumin 3.9 g/dL (3.4-5.0); Alkaline Phosphatase 124 U/L (46-116); Anion Gap 7.1 mmol/L (3-11); BUN 12 mg/dL (7-18); Bilirubin, Total 0.6 mg/dL (0.2-1.0); CO2 27.9 mmol/L (21.0-32.0); CREATININE 0.9 mg/dL (0.55-1.02); Calcium 9.6 mg/dL (8.5-10.1); Chloride 102 mmol/L (98-107); Estimated GFR 72.28 (mL/min/1.73m2); Glucose 93 mg/dL (74-106); LDH 199 U/L (81-234); Potassium 3.3 mmol/L (3.5-5.1); Sodium 137 mmol/L (136-145); Total Protein 7.7 g/dL (6.4-8.2)
[2023-04-14 14:04] LABS: Hemoglobin A1C 5.7 % (<5.7)
== END 2023-04-28 23:59 | disposition home or self-care (01) ==
LOC: INF 02:27
PROVIDERS: PCP Family Medicine; Visit Provider Internal Medicine Hematology & Oncology
DX: R73.03 Prediabetes (principal); E88.81 Metabolic syndrome and other insulin resistance; C83.10 Mantle cell lymphoma, unspecified site
CPT/HCPCS: 36415; 80053; 83036; 83615; 85025

== ENCOUNTER 2023-05-13 15:13 | Outpatient (REF) | payer BC, SELFPAY ==
[2023-05-13 16:17] LABS: Magnesium 1.8 mg/dL (1.8-2.4)
== END 2023-05-13 15:14 | disposition home or self-care (01) ==
LOC: NCHCN 15:13
PROVIDERS: PCP Family Medicine; Visit Provider Family Medicine
DX: E87.6 Hypokalemia (principal)
CPT/HCPCS: 83735

== ENCOUNTER 2023-06-29 15:51 | Emergency (ER) | payer BC, SELFPAY ==
[2023-06-29] VITALS (122 sets, daily range): BP systolic 124–172; BP diastolic 63–114; PULSE 81–134; RESP 11–28; TEMP 37.5; O2SAT 91–97
--- NOTE | 2023-06-29 15:45 | RT.EKG_ITS ---
APPROVED REPORT Exam: Resting ECG Reason for Exam: TIA Patient Location: E HR:123 bpm ECG Measurements Heart Rate 123 AXIS VT 153 P 68 QRSd 87 QRS 59 QT 316 T 45 QTc 454 Conclusion Sinus tachycardia...rate> 99 Sinus tachycardia. No significant change from prior. WD
--- NOTE | 2023-06-29 16:31 | ED.GENADUL_ITS ---
Discharge Plan Disposition Patient Disposition: Home Discharge Details Chief Complaint: CVA/TIA Clinical Impression: Transient confusion Primary Care Provider: Geraldo Badillo ED Provider: Micheal Roth Home Meds and New Rx's Prescriptions: No Action acetaminophen 325 mg capsule 650 mg PO PRN PRN apixaban 5 mg tablet 5 mg PO BID Qty: 180 3RF Patient Comments: patient stated she is done with it estradiol [Estrace] 0.5 mg tablet 2 mg PO .2X WEEK Patient Comments: does not use Rx Instructions: off 5 days; repeat cycle Ozempic 0.25 mg or 0.5 mg(2 mg/1.5 mL) pen injector 2 mg subcut QWEEK Discharge Instructions Instructions: Altered Mental Status (ED) Additional Instructions: At this time your laboratory work-up is returned reassuring. Your potassium is slightly low. Continue to take your home potassium. There was some abnormality noted on your CAT scan as we discussed together. Please follow-up closely with your primary care provider Dr. Badillo for further discussion of potential MRI. It does sound that this is a similar finding to your previous imaging, however repeat imaging may certainly be reasonable on an urgent basis. If you notice any worsening of your symptoms, or any new symptoms such as vomiting, diarrhea, fever, chills, shortness of breath, chest pain, numbness, weakness, or fainting , please return immediately to the emergency department for reevaluation. Please follow up with your primary care provider as soon as possible for reassessment and reevaluation. As always, it was a pleasure participating in your medical care today. Referrals: Geraldo Badillo [Primary Care Provider] - Medical Decision Making 63-year-old female with a past medical history of alpha-1 antitrypsin deficiency, mantle cell lymphoma/non-Hodgkin's, previous pulmonary embolism no longer on anticoagulants, COPD, prediabetic, presents today for evaluation of mild confusion and feeling off. Patient states that at 10 AM she was at home and she suddenly had difficulty writing an email, reading, typing, and doing some tasks that are normally fairly easy. She also noticed slight visual deficit in the right side of her eye. Symptoms lasted for about 1 hour, and then resolved on their own. She denies any significant headache or neck pain. She denies any thunderclap headache. She denies any chest pain or shortness of breath or syncope. No other complaints. Patient states that she had similar symptoms 3 years ago, had a notable work-up including MRI which and results demonstrate no evidence of something acute. Patient otherwise feels well. She has no other complaints at this time. No other modifying factors. Exam demonstrates no focal neurologic deficits, no abnormalities. The patient states that she feels completely better at this time her symptoms have totally resolved but she did want to get checked. We will get a CT/CTA, gently rehydrate, monitor closely and reassess. 7:20 PM Laboratory work-up has returned normal, no bandemia, white count left shift, electrolytes are stable except for potassium at 3.1. We have given IV and oral potassium. Troponin normal. Thyroid function normal. Patient continues to feel normal with no deficits on exam and on recheck. CT/CTA shows no evidence of disease in the vessels. No bleed or signs of stroke. There is evidence of slight abnormality in hypodensities within the brain though, which does not correlate well with the notably clean vasculature, and radiology is more concern for potential other pathology, including byproduct of the patient's chemotherapy in the past. Recommend MRI on an urgent nonemergent basis. Patient otherwise feels well. Stable for discharge. Patient is in the low risk category for the Abcd2 score. No indication for antiplatelet at this time. Discussed red flags for which to return. I have extensively reviewed the treatment plan and discharge instructions with the patient. I have addressed all patient concerns at this time. The patient was made aware of what symptoms to monitor for that would warrant a return to the emergency department. Discussed the plan with the patient, they demonstrate verbal understanding and agreement with our assessment and plan at this time. The documentation in this chart was dictated using [employer] dictation software. Please excuse any dictation errors. FINDINGS: CTA Neck W: Aortic arch anatomy: The aortic arch anatomy is conventional and there is no significant stenosis at the origin of the great vessels off of the aortic arch. No intimal flap evident. Anterior circulation: Both common carotid arteries ascend with normal luminal diameters. At the level the carotid bulbs and proximal internal carotid arteries there is minimal plaque without hemodynamically significant stenosis evident. Posterior circulation: Both vertebral arteries originate in conventional fashion off of the subclavian arteries and there is no obvious stenosis at the origin of the vertebral arteries. Both vertebral arteries exhibit normal luminal diameters within the foramen transversarium. No intraluminal thrombus nor vertebral artery dissection. Both vertebral arteries contribute to the formation of the basilar artery at the skull base. CTA Brain W: Anterior circulation: Both internal carotid arteries are patent in the skull base-carotid canals as well as within the cavernous sinuses. The supraclinoid aspects of the ICAs are patent. Both A1 segments are patent as are the anterior cerebral arteries and there is no evidence of aneurysm at the level of the anterior communicating artery. Both middle cerebral arteries are patent with no evidence of significant stenosis nor intraluminal thrombus. There also no aneurysms of these vessels. Posterior circulation: Basilar artery ascends with normal luminal diameter and no significant stenosis. Distally the it gives off patent bilateral posterior cerebral arteries. The right superior cerebellar artery is patent and shares common trunk with the right HUNTING GUIDE. The left superior cerebellar artery arises in conventional fashion just proximal to the left HUNTING GUIDE. There is no evidence of aneurysm at the tip of the basilar artery nor elsewhere in the ttkada-nc-Npyfyh. CT BRAIN: There is no evidence of intracranial hemorrhage, mass effect, or shift of midline structures. There are no extra-axial fluid collections. Ventricles are not enlarged or shifted. There are no ring enhancing lesions in the brain and no abnormal meningeal enhancement. There is abundant bilateral periventricular hypodensity consistent with chronic small vessel disease. This is quite extensive/confluent. Also some hypodensity evident in the hillary. IMPRESSION: 1. Patent carotid arteries in the neck. No hemodynamically significant stenosis. 2. Patent vertebral arteries in the neck. No dissection 3. Patent intracranial arteries. No stenosis nor occlusion or aneurysms. 4. There is abundant bilateral confluent periventricular hypodensity consistent with probable chronic small-vessel ischemic changes versus is other pathology including metabolic. There are no ring enhancing lesions in the brain nor abnormal meningeal enhancement. Recommend follow-up MRI for added sensitivity and specificity HPI General Date/Time Provider Initiated Documentation: 06/29/23 16:09 . HPI Narrative: 63-year-old female with a past medical history of alpha-1 antitrypsin deficiency, mantle cell lymphoma/non-Hodgkin's, previous pulmonary embolism no longer on anticoagulants, COPD, prediabetic, presents today for evaluation of mild confusion and feeling off. Patient states that at 10 AM she was at home and she suddenly had difficulty writing an email, reading, typing, and doing some tasks that are normally fairly easy. She also noticed slight visual deficit in the right side of her eye. Symptoms lasted for about 1 hour, and then resolved on their own. She denies any significant headache or neck pain. She denies any thunderclap headache. She denies any chest pain or shortness of breath or syncope. No other complaints. Patient states that she had similar symptoms 3 years ago, had a notable work-up including MRI which and results demonstrate no evidence of something acute. Patient otherwise feels well. She has no other complaints at this time. No other modifying factors. Related Data Home Medications Medication Instructions Recorded Confirmed apixaban 5 mg tablet 5 mg PO BID blood thinner #180 tabs 04/21/22 08/18/22 acetaminophen 325 mg capsule 650 mg PO PRN PRN 05/05/22 06/29/23 estradiol 0.5 mg tablet (Estrace) 2 mg PO .2X WEEK 08/18/22 08/18/22 semaglutide 0.25 mg or 0.5 mg (2 2 mg subcut QWEEK 08/18/22 06/29/23 mg/1.5 mL) subcutaneous pen injector (Ozempic) Previous Rx's Medication Instructions Recorded apixaban 5 mg tablet 5 mg PO BID blood thinner #180 tabs 04/21/22 Allergies Allergy/AdvReac Type Severity Reaction Status Date / Time amoxicillin [From Augmentin] Allergy Verified 06/29/23 15:59 clavulanic acid Allergy Verified 06/29/23 15:59 [From Augmentin] doxycycline AdvReac Intermediate Upset Verified 06/29/23 15:59 Stomach, vomiting General Stated Complaint: CVA/TIA ERIKA: 3 Review of Systems All systems reviewed & are unremarkable except as noted in HPI and below PFSH All Active Problems (Updated 06/29/23 @ 19:28 by Micheal Roth DO) Transient confusion (Acute) COPD (chronic obstructive pulmonary disease) (Chronic) Pulmonary embolism (Chronic 04/17/22) 6 months of eliquis Insulin resistance (Acute) Obstructive airway disease (Acute) Class 2 severe obesity with serious comorbidity and body mass index (BMI) of 35.0 to 35.9 in adult (Acute) [place] [facility] [place] [facility] [place] Hypokalemia (Acute) Hx, per 08/2021 ? Postmenopausal (Chronic) Estrad[place] [facility] Agent (instead of premarin).. Hx DesquInflammVaginitis, Clindamycin, 01/2021. Mantle cell lymphoma (Chronic 05/2017) S/p 6 cycles of Lawrence Regimen chemo and autologous stem cell transplant 01/16 Ripak-6-gvnnlxpyfgf deficiency (Chronic) Prediabetes (Chronic) Generalized anxiety disorder (Chronic) Diverticulosis (Chronic) Sigmoid and descending colon. Required colostomy x 10mo to treat ruptured diverticulum Medical History Complex [place] Left[place] [facility] [place]ole Agent, 02/2021 .. salping-oopherectomy 03/2022 Dr. Cole Depressive disorder 2017 son - overdose from opiates Essential hypertension Hallux valgus (acquired), right foot Surgical History H/O autologous stem cell transplant (01/25/18) For mantle cell lymphoma H/O bursectomy (~02/2006) Left knee History of colostomy reversal (06/28/18) History of partial colectomy (08/14/17) D/t perforated diverticulitis History of salpingoophorectomy (~03/2022) 03/2022 Dr. Cole S/P colonoscopy (06/08/16) S/P LEEP (loop electrosurgical excision procedure) (02/06/15) S/P tonsillectomy and adenoidectomy (06/03/17) Developed.. and surgery helped ID lymphoma! ik/10/09/21 Family History Mother , at 54 of alpha-1 antitrypsin deficiency Hdcut-1-zanpabiwpcz deficiency Father Essential hypertension Hyperlipidemia Prostate cancer Son , at 28 of carfentanil overdose in 2017 Substance abuse Maternal Grandfather , at 58 of alpha-1 antitrypsin deficiency complications Dojiw-8-vrmxikdgzfp deficiency Liver failure Maternal Grandmother , at 85 Essential hypertension Heart disease Stroke Myocardial infarction Paternal Grandfather Essential hypertension Heart disease Hyperlipidemia Stroke Prostate cancer Paternal Grandmother No problems noted. Social History Smoking/Tobacco Use Status: Former Tobacco Use Quit Date: 11/29/90 Tobacco: How many years used: 15 Second Hand Exposure: No Smoking risk assessment performed?: Yes Alcohol Intake: current Alcohol Intake frequency: holidays/special occasions only Alcohol type: beer, wine and hard liquor Drug use: Never Substance use type: does not use Caregiver/Support person: No Household members: other Details: Pt's father and his (her aunt who dad after mom ) Housing: house Communication Needs: Corrective Lenses Education Level: college Details: 2016 BSN Do you need help understanding health information?: Never 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 Pets and animals: Yes Pets and animals: cat(s) and dog(s) Sexually active: No Do you think of yourself as: straight/heterosexual Current gender identity: female What is your relationship status?: How often do you talk on the phone with friends or family?: once per week How often do you get together with friends or relatives?: once per week How often do you attend spiritism or advent services?: decline to answer Do you belong to any clubs or organized social groups?: no Panel score (0-1 are the most socially isolated patients): 0 What type of physical activity do you participate in: walking Duration: 30-45 minutes/day Frequency: 3-4 times per week Swathi/Mosque: Hoahaoism Special swathi needs: Yes Seatbelt use: always Helmet use: Yes Drive intox or ride w/intox racing driver: No Do you feel safe at home: Yes Do you feel safe in your relationship?: Yes Additional Social history: Patient currently is not in relationship. She has good family support and a network of friends. Female Reproductive History Menstrual Menopause type: natural Date of menopause: 11/29/07 History History 2 Para 1 Hx # Term Pregnancies Multiple births Hx # Pregnancies Ectopic pregnancies AB induced 1 Hx Number of Living Children 0 AB spontaneous Exam Narrative Exam Narrative: 1.Const: Well-nourished, Well-developed, appearing stated age 2.Eyes: PERRL, no conjunctival injection, and symmetrical lids. 3.ENT: Atraumatic external nose and ears. notably dry MM. Neck: Symmetric, trachea midline, No thyromegaly. 4.CVS: +S1/S2, No murmurs or gallops. Peripheral pulses 2+ and equal in all extremities. Brisk capillary refill in all extremities. 5.RESP: Unlabored respiratory effort. Clear to auscultation bilaterally. No wheezes rales or rhonchi 6.GI: Soft, Nontender/Nondistended, No hepatosplenomegaly. No guarding or r ebound. 7.MSK: Normocephalic/Atraumatic, Extremities w/o deformity or ttp No cyanosis or clubbing, Normal movement of all extremities 8.Skin: Warm, Dry. No rashes or lesions. 9.Neuro: employment security officer II-XII grossly intact. Sensation grossly intact, no focal neurologic deficits. All 6 cardinal planes of vision are fully intact. No evidence of rotatory or vertical nystagmus. The patient demonstrated a normal wvkoqu-pdot-wvphrl, good dexterity. There was no evidence of dysdiadochokinesia. Patient was able to ambulate without difficulty. There was no wide-based gait. Romberg testing was normal. Dyte-cc-nbnr testing was normal. Sensation was intact bilaterally as well as muscle strength bilaterally for all extremities. Patient was able to verbalize butter cup with no slurring, or miss pronunciation. 10.Psych: (AAO) x3. Appropriate mood and affect Course Vital Signs Vital signs: Vital Signs Temperature 37.5 C 06/29/23 15:54 Pulse 134 H 06/29/23 15:54 Respiratory Rate 18 06/29/23 15:54 Blood Pressure 172/93 H 06/29/23 15:54 Pulse Oximetry 93 06/29/23 15:54 Temperature 37.5 C 06/29/23 15:54 Temperature Source Temporal Artery Scan 06/29/23 15:54 Pulse 134 H 06/29/23 15:54 Respiratory Rate 18 06/29/23 15:54 Respiratory Effort Normal, Non-Labored 06/29/23 16:01 Blood Pressure 172/93 H 06/29/23 15:54 Blood Pressure Position Sitting 06/29/23 15:54 Pulse Oximetry 93 06/29/23 15:54 Oxygen Delivery Method Room Air 06/29/23 15:54 Oxygen Flow Rate 0 06/29/23 15:54 PAWSS Have you Been Recently Intoxicated or Drunk Within the Last 30 days?: No Have you Ever Experienced Previous Episodes of Alcohol Withdrawal?: No Have you ever Experienced Withdrawal Seizures?: No Have you ever Experienced Delirium Tremens(DT)s?: No Have you ever undergone Alcohol Rehabilitation Treatment (i.e, inpt ot outpatient treatment programs)?: No Have you ever Experienced Blackouts?: No Have you ever Combined Alcohol with other Downers within the last 90 days?: No Have you ever Combined Alcohol with any other Substance of Abuse during the last 90 days?: No Positive Blood Alcohol level on Presentation? [PCS.BAL]: No Evidence of Increased Autonomic Activity (i.e. HR>120, tremor, sweating, agitation, nausea)?: No Result: 0
[2023-06-29] MEDS: Normal Saline 1,000 ML 1000 ML IV (16:34)
[2023-06-29 16:45] LABS: Abs Immature Grans 0.02 10^3/uL (0.0-0.06); Absolute Basophil Count 0.02 10^3/uL (0.0-0.2); Absolute Eosinophil Count 0.02 10^3/uL (0.0-0.7); Absolute Lymphocyte Count 1.74 10^3/uL (1.2-3.4); Absolute Neutrophil Count 4.41 10^3/uL (1.2-6.7); Basophils % 0.3; Eosinophils % 0.3; HCT 39.2 % (36.0-46.0); HGB 13.3 g/dL (11.2-15.7); Immature Grans % 0.3; Lymphocytes % 25.2; MCH 31.3 pg (27.0-33.0); MCHC 33.9 % (32.0-36.0); MCV 92 fL (80-95); Monocytes % 10.1; Neutrophils % 63.8; Platelet Count 270 10^3/uL (130-400); RBC 4.25 10^6/uL (3.93-5.22); RDW 12.5 % (11.7-14.6); RDW-SD 42.4 fL; WBC 6.91 10^3/uL (4.4-10.8)
[2023-06-29 17:02] LABS: ALT 32 U/L (14-59); AST 35 U/L (15-37); Albumin 4.1 g/dL (3.4-5.0); Alkaline Phosphatase 119 U/L (46-116); Anion Gap 9.9 mmol/L (3-11); BUN 12 mg/dL (7-18); Bilirubin, Total 0.6 mg/dL (0.2-1.0); CO2 26.1 mmol/L (21.0-32.0); Calcium 9.7 mg/dL (8.5-10.1); Chloride 103 mmol/L (98-107); Glucose 117 mg/dL (74-106); Potassium 3.1 mmol/L (3.5-5.1); Sodium 139 mmol/L (136-145); Total Protein 7.6 g/dL (6.4-8.2); Troponin I < 50 ng/L (<or=60)
[2023-06-29 17:03] LABS: INR 1.1 (0.9-1.1); PTT Activated 26.7 sec (21.5-31.9); Prothrombin Time 11.1 sec (9.3-11.0)
[2023-06-29 17:10] LABS: TSH (W/Ref FT4) 0.75 uIU/mL (0.36-3.74)
[2023-06-29] MEDS: Potassium Chloride 20 MEQ TABCR 40 MEQ PO (17:53)
[2023-06-29] MEDS: POTASSIUM CHLORIDE 10 MEQ/100 ML BAG 100 MEQ IVPB (17:53)
--- NOTE | 2023-06-29 18:20 | DI.CT_ITS ---
Exam(s) CT BRAIN NECK CTA EXAM: CT BRAIN NECK CTA CLINICAL HISTORY: confusion, blurry vision, r/o stroke. TECHNIQUE: Imaging Protocol: Axial CT angiography was performed with multi-slice acquisition and mu lti-planar and/or 3D reconstructions. CONTRAST MATERIAL: Intravenous: Omnipaque 350 Contrast volume:structured data in ml COMPARISON: CT CT CHEST PE CTA from 04/30/2022 FINDINGS: CTA Neck W: Aortic arch anatomy: The aortic arch anatomy is conventional and there is no significant stenosis at the origin of the great vessels off of the aortic arch. No intimal flap evident. Anterior circulation: Both common carotid arteries ascend with normal luminal diameters. At the level the carotid bulbs and proximal internal carotid arteries there is minimal plaque without hemodynamically significant stenosis evident. Posterior circulation: Both vertebral arteries originate in conventional fashion off of the subclavian arteries and there is no obvious stenosis at the origin of the vertebral arteries. Both vertebral arteries exhibit normal luminal diameters within the foramen transversarium. No intraluminal thrombus nor vertebral artery dissection. Both vertebral arteries contribute to the formation of the basilar artery at the skull base. CTA Brain W: Anterior circulation: Both internal carotid arteries are patent in the skull base-carotid canals as well as within the cave rnous sinuses. The supraclinoid aspects of the ICAs are patent. Both A1 segments are patent as are the anterior cer ebral arteries and there is no evidence of aneurysm at the level of the anterior communicating artery . Both middle cerebral arteries are patent with no evidence of significant stenosis nor intraluminal th rombus. There also no aneurysms of these vessels. Posterior circulation: Basilar artery ascends with normal luminal diameter and no significant stenosis. Distally the it giv es off patent bilateral posterior cerebral arteries. The right superior cerebellar artery is patent and shares common trunk with the right YEAST WASHER. The left superior cerebellar artery arises in convention al fashion just proximal to the left YEAST WASHER. There is no evidence of aneurysm at the tip of the basilar artery nor elsewhere in the khvint-dh-Nyzz is. CT BRAIN: There is no evidence of intracranial hemorrhage, mass effect, or shift of midline structures. There are no extra-axial fluid collections. Ventricles are not enlarged or shifted. There are no ring enh ancing lesions in the brain and no abnormal meningeal enhancement. There is abundant bilateral periventricular hypodensity consistent with chronic small vessel disease. This is quite extensive/confluent. Also some hypodensity evident in the hillary. IMPRESSION: 1. Patent carotid arteries in the neck. No hemodynamically significant stenosis. 2. Patent vertebral arteries in the neck. No dissection 3. Patent intracranial arteries. No stenosis nor occlusion or aneurysms. 4. There is abundant bilateral confluent periventricular hypodensity consistent with probable chronic small-vessel ischemic changes versus is other pathology including metabolic. There are no ring enha ncing lesions in the brain nor abnormal meningeal enhancement. Recommend follow-up MRI for added sen sitivity and specificity Report called by myself to the ER physician. RADIATION DOSE DELIVERED: 1,901.63mGy.cm Total DLP DATA REPOSITORY: All CT scans at this facility are submitted to the National Radiology Data Registry (NRDR) Dose Index Registry (DIR) with the [employer] (ACR). RADIATION OPTIMIZATION: All CT scans at this facility use at least one of these dose optimization te chniques: automated exposure control; mA and/or kV adjustment per patient size (includes targeted exa ms where dose is matched to clinical indication); or iterative reconstruction.
[2023-06-29] MEDS: Omnipaque 350 MG/ML 100 ML BTL IJ (18:29)
[2023-06-29] MEDS: Normal Saline - Diluent 50 ML VIAL IJ (18:30)
[2023-06-29] MEDS: Normal Saline Flush 10 ML SYR IVP (18:30)
== END 2023-06-29 21:45 | disposition home or self-care (01) ==
PROVIDERS: Emergency Provider Student in an Organized Health Care Education/Training Program; PCP Family Medicine
DX: R41.0 Disorientation, unspecified (principal); G45.9 Transient cerebral ischemic attack, unspecified; R00.0 Tachycardia, unspecified; H53.9 Unspecified visual disturbance; R20.2 Paresthesia of skin; E88.01 Alpha-1-antitrypsin deficiency; C83.10 Mantle cell lymphoma, unspecified site; Z86.711 Personal history of pulmonary embolism
CPT/HCPCS: 70496; 70498; 80053; 93005; 96361; 96365; 96366; 99285; 84443; 84484; 85025; 85610; 85730; 93010; 99284; J3480; J3490

== ENCOUNTER 2023-08-25 02:30 | Outpatient (RCR) | payer BC, SELFPAY ==
[2023-08-25 14:05] LABS: Hemoglobin A1C 5.5 % (<5.7)
== END 2023-08-28 23:59 | disposition home or self-care (01) ==
LOC: INF 02:30
PROVIDERS: Surgery; PCP Family Medicine; Visit Provider Internal Medicine Hematology & Oncology
DX: R73.03 Prediabetes (principal); E88.81 Metabolic syndrome and other insulin resistance
CPT/HCPCS: 36415; 83036

== ENCOUNTER → 2023-12-07 01:29 | Outpatient (CLI) | payer BC, SELFPAY ==
--- NOTE | 2023-12-07 15:47 | DI.MAMMO_ITS ---
Exam(s) MAMMO SCREENING EXAM: MAMMO SCREENING CLINICAL HISTORY: BREAST CANCER SCREENING MAMMO Z12.31. TECHNIQUE: Bilateral full field digital CC and MLO mammographic images were obtained with 3D tomosyn thesis and utilizing computer aided detection (CAD). COMPARISON: Prior mammograms were reviewed. FINDINGS: There has been no significant change in the appearance and distribution of the fibroglandular tissue. There are no CAD designations. There are no new spiculated masses nor malignant appearing microcalcification groups. There is no significant architectural distortion nor skin thickening-retraction. IMPRESSION: No radiographic evidence of malignancy. BI-RADS Category 1 - Negative Breast Density - Category B - Scattered areas of fibroglandular density Breast density Category C or D implies that the patient has dense breast tissue. Dense breast tissue can make it harder to find cancer on a mammogram. Dense breast tissue is also associated with an incr eased risk of breast cancer. This information about the result of the mammogram report was provided to the patient to raise their awareness. Use this report when you speak with the patient about their risks for breast cancer, which includes their family history. At that time, you may recommend additional screening tests (Ultrasoun d or MRI) as these tests may add significant information. A negative radiographic report should not delay biopsy if a dominant or clinically suspicious mass is present. Up to ten percent of cancers are not identified on mammography. A negative report may reinforce clinical impression. Adenosis and dense breasts may obscure an underlying neoplasm. False positive reports average 6 to 10%. Patient will receive a letter notifying them of these results.
== END ==
PROVIDERS: PCP Family Medicine; Visit Provider Family Medicine
DX: Z12.31 Encounter for screening mammogram for malignant neoplasm of breast (principal)
CPT/HCPCS: 77063; 77067

== ENCOUNTER 2023-12-27 04:07 | Outpatient (CLI) | payer BC, SELFPAY ==
[2023-12-27] MEDS: Levalbuterol HFA 15 GM INH 4 PUFF IH (14:39)
[2023-12-27] MEDS: Inhaler, Assist Device 1 EACH MC (14:39)
--- NOTE | 2023-12-28 08:35 | W.PFT ---
Date of service: 12/27/23 Time of Service: 13:07 Pulmonary Function Test Result Indications: Alpha 1 antitrypsan deficiency Interpretation Spirometry: There is mild airflow limitation. No bronchodilator response Lung Volumes: There is hyperinflation and air trapping Diffusion Capacity: Normal diffusion Airway Pressure: Normal airways resistance Impression Mild airflow obstruction with air trapping and a normal diffusion. Note: When compared to 12/25/22, lung function is stable. Clinical Correlation therefore is recommended.
== END 2023-12-27 04:08 | disposition home or self-care (01) ==
LOC: RT 04:07
PROVIDERS: PCP Family Medicine; Visit Provider Student in an Organized Health Care Education/Training Program
DX: E88.01 Alpha-1-antitrypsin deficiency (principal); J44.9 Chronic obstructive pulmonary disease, unspecified
CPT/HCPCS: 94060; 94726; 94729

== ENCOUNTER 2023-12-29 03:26 | Outpatient (RCR) | payer BC, SELFPAY ==
[2023-12-29 08:15] LABS: Abs Immature Grans 0.01 10^3/uL (0.0-0.06); Absolute Basophil Count 0.05 10^3/uL (0.0-0.2); Absolute Eosinophil Count 0.09 10^3/uL (0.0-0.7); Absolute Lymphocyte Count 2.23 10^3/uL (1.2-3.4); Absolute Monocyte Count 0.66 10^3/uL (0.1-0.8); Absolute Neutrophil Count 3.14 10^3/uL (1.2-6.7); Basophils % 0.8; Eosinophils % 1.5; HCT 41.1 % (36.0-46.0); Immature Grans % 0.2; Lymphocytes % 36.1; MCHC 34.1 % (32.0-36.0); MCV 94 fL (80-95); MPV 9.1 fL (8.0-11.0); Monocytes % 10.7; Neutrophils % 50.7; Platelet Count 245 10^3/uL (130-400); RBC 4.38 10^6/uL (3.93-5.22); RDW 12.6 % (11.7-14.6); RDW-SD 43.8 fL; WBC 6.18 10^3/uL (4.4-10.8)
[2023-12-29 08:35] LABS: ALT 30 U/L (14-59); AST 24 U/L (15-37); Albumin 3.9 g/dL (3.4-5.0); Alkaline Phosphatase 119 U/L (46-116); Anion Gap 8.1 mmol/L (3-11); BUN 14 mg/dL (7-18); Bilirubin, Total 0.5 mg/dL (0.2-1.0); CO2 26.9 mmol/L (21.0-32.0); CREATININE 0.9 mg/dL (0.55-1.02); Calcium 9.7 mg/dL (8.5-10.1); Chloride 107 mmol/L (98-107); Estimated GFR 71.83 (mL/min/1.73m2); Glucose 102 mg/dL (74-106); LDH 169 U/L (81-234); Potassium 4.1 mmol/L (3.5-5.1); Sodium 142 mmol/L (136-145); Total Protein 7.3 g/dL (6.4-8.2)
== END 2023-12-29 23:59 | disposition home or self-care (01) ==
LOC: INF 03:26
PROVIDERS: PCP Family Medicine; Visit Provider Internal Medicine Hematology & Oncology
DX: C83.18 Mantle cell lymphoma, lymph nodes of multiple sites (principal)
CPT/HCPCS: 36415; 80053; 83615; 85025

== ENCOUNTER 2024-04-26 04:55 | Outpatient (RCR) | payer BC, SELFPAY ==
[2024-04-26 11:06] LABS: Abs Immature Grans 0.03 10^3/uL (0.0-0.06); Absolute Basophil Count 0.05 10^3/uL (0.0-0.2); Absolute Eosinophil Count 0.02 10^3/uL (0.0-0.7); Absolute Lymphocyte Count 1.49 10^3/uL (1.2-3.4); Basophils % 0.7 %; Eosinophils % 0.3 %; HCT 43.6 % (36.0-46.0); Immature Grans % 0.4 %; Lymphocytes % 21.3 %; MCH 32.7 pg (27.0-33.0); MCHC 34.4 % (32.0-36.0); MCV 95 fL (80-95); MPV 9.5 fL (8.0-11.0); Monocytes % 8.6 %; Neutrophils % 68.7 %; Platelet Count 242 10^3/uL (130-400); RBC 4.59 10^6/uL (3.93-5.22); RDW 12.5 % (11.7-14.6); RDW-SD 44.2 fL; WBC 6.99 10^3/uL (4.4-10.8)
[2024-04-26 11:24] LABS: ALT 33 U/L (14-59); AST 30 U/L (15-37); Albumin 4.3 g/dL (3.4-5.0); Alkaline Phosphatase 107 U/L (46-116); BUN 21 mg/dL (7-18); Bilirubin, Total 0.7 mg/dL (0.2-1.0); CREATININE 0.9 mg/dL (0.55-1.02); Calcium 9.5 mg/dL (8.5-10.1); Chloride 106 mmol/L (98-107); Estimated GFR 71.83 (mL/min/1.73m2); Glucose 94 mg/dL (74-106); LDH 216 U/L (81-234); Potassium 3.9 mmol/L (3.5-5.1); Sodium 141 mmol/L (136-145)
== END 2024-04-28 23:59 | disposition home or self-care (01) ==
LOC: INF 04:55
PROVIDERS: PCP Family Medicine; Visit Provider Nurse Practitioner Adult Health
DX: C83.18 Mantle cell lymphoma, lymph nodes of multiple sites (principal)
CPT/HCPCS: 36415; 80053; 83615; 85025

== ENCOUNTER 2024-08-25 19:04 | Outpatient (REF) | payer BC, SELFPAY | END 2024-08-25 19:05 | disposition home or self-care (01) | LOC: LBN 19:04 | PROVIDERS: PCP Family Medicine; Visit Provider Nurse Practitioner Family | DX: N39.0 Urinary tract infection, site not specified (principal); R82.89 Other abnormal findings on cytological and histological examination of urine | CPT/HCPCS: 87086 ==

== ENCOUNTER 2024-08-28 02:45 | Outpatient (RCR) | payer BC, SELFPAY ==
[2024-08-28 14:47] LABS: Abs Immature Grans 0.01 10^3/uL (0.0-0.06); Absolute Basophil Count 0.03 10^3/uL (0.0-0.2); Absolute Eosinophil Count 0.05 10^3/uL (0.0-0.7); Absolute Lymphocyte Count 1.99 10^3/uL (1.2-3.4); Absolute Monocyte Count 0.69 10^3/uL (0.1-0.8); Absolute Neutrophil Count 4.03 10^3/uL (1.2-6.7); Basophils % 0.4 %; Eosinophils % 0.7 %; HCT 43.9 % (36.0-46.0); HGB 14.8 g/dL (11.2-15.7); Immature Grans % 0.1 %; Lymphocytes % 29.3 %; MCH 32.5 pg (27.0-33.0); MCHC 33.7 % (32.0-36.0); MCV 96 fL (80-95); MPV 9.5 fL (8.0-11.0); Monocytes % 10.1 %; Neutrophils % 59.4 %; Platelet Count 235 10^3/uL (130-400); RBC 4.56 10^6/uL (3.93-5.22); RDW 12.1 % (11.7-14.6); RDW-SD 43.4 fL
[2024-08-28 15:05] LABS: ALT 29 U/L (14-59); AST 31 U/L (15-37); Albumin 4.3 g/dL (3.4-5.0); Alkaline Phosphatase 101 U/L (46-116); Anion Gap 9.2 mmol/L (3-11); BUN 19 mg/dL (7-18); Bilirubin, Total 0.84 mg/dL (0.2-1.0); CO2 27.8 mmol/L (21.0-32.0); CREATININE 0.9 mg/dL (0.55-1.02); Calcium 9.8 mg/dL (8.5-10.1); Chloride 102 mmol/L (98-107); Estimated GFR 71.39 (mL/min/1.73m2); Glucose 87 mg/dL (74-106); LDH 224 U/L (81-234); Potassium 3.2 mmol/L (3.5-5.1); Sodium 139 mmol/L (136-145); Total Protein 8.1 g/dL (6.4-8.2)
== END 2024-08-28 23:59 | disposition home or self-care (01) ==
LOC: INF 02:45
PROVIDERS: Nurse Practitioner Adult Health; PCP Family Medicine; Visit Provider Internal Medicine Hematology & Oncology
DX: C83.18 Mantle cell lymphoma, lymph nodes of multiple sites (principal)
CPT/HCPCS: 36415; 80053; 83615; 85025

== ENCOUNTER 2024-10-28 19:49 | Emergency (ER) | payer BC, SELFPAY ==
[2024-10-28 19:51] VITALS: BP 174/81; PULSE 94; RESP 20; TEMP 36.9; O2SAT 97
[2024-10-28] MEDS: Ketorolac 15 MG/ML VIAL IVP (20:07)
[2024-10-28] MEDS: Ondansetron 4 MG/2 ML VIAL IVP (20:07)
[2024-10-28] MEDS: Normal Saline 1,000 ML 1000 ML IV (20:15)
[2024-10-28] MEDS: Normal Saline Flush 10 ML SYR IVP (20:15)
--- NOTE | 2024-10-28 20:20 | DI.CT_ITS ---
Exam(s) CT ABDOMEN PELVIS W EXAM: CT ABDOMEN PELVIS W CLINICAL HISTORY: R flank pain radiating to front, +dysuria TECHNIQUE: Imaging Protocol: Axial computed tomography images with coronal and sagittal reformatted images were created and reviewed. CONTRAST MATERIAL: Intravenous: Omnipaque 350 Contrast volume:75 mL Oral: No COMPARISON: CT CT ABDOMEN PELVIS W from 03/14/[address] BRAIN NECK CTA from 06/29/2023 FINDINGS: ABDOMEN: Lung Bases: No acute infiltrates are present. Liver: Normal density. No measurable mass. Portal, Superior Mesenteric, and Splenic Veins: Unremarkable. Gallbladder and Biliary Tract: No radiodense calculus or dilation. Pancreas: Normal density, no abnormal calcifications or inflammatory process. Spleen: Normal. Adrenals: No masses seen. Kidneys: Normal size, contour and axis. There is bilateral nephrolithiasis. There is a 4 mm right UV J stone causing [id number]-[id number] hydronephrosis. There are tiny hypodensities seen in the kidneys wh ich are too small for further characterization but likely reflect small cysts. No follow-up is recom mended. Abdominal Aorta: Abdominal portion non-dilated. Bowel: There is an anastomosis at the rectosigmoid junction. There are few scattered diverticula in the colon but no evidence of acute diverticulitis. There is no evidence of bowel obstruction or candelario l wall thickening. Appendix is unremarkable. Peritoneal Cavity: No ascites, collection or mesenteric inflammatory response. No free air. Lymph Nodes: Within normal limits. Bones: Within normal limits for the patient's age. Soft Tissues: Unremarkable. PELVIS: Bladder: Symmetric distention, no gross wall thickening. Reproductive Organs: Unremarkable as visualized. Lymph Nodes: Within normal limits. Bones: Within normal limits for the patient's age. IMPRESSION: 1. 4 mm right UVJ stone causing ddoo-wl-pzxqecfa hydronephrosis. 2. Bilateral nephrolithiasis. RADIATION DOSE DELIVERED: 458.47mGy.cm Total DLP DATA REPOSITORY: All CT scans at this facility are submitted to the National Radiology Data Registry (NRDR) Dose Index Registry (DIR) with the [employer] (ACR). RADIATION OPTIMIZATION: All CT scans at this facility use at least one of these dose optimization te chniques: automated exposure control; mA and/or kV adjustment per patient size (includes targeted exa ms where dose is matched to clinical indication); or iterative reconstruction.
--- NOTE | 2024-10-28 20:20 | W.ED.GENAD ---
Discharge Plan Disposition Patient Disposition: Home Condition: Stable Discharge Details Clinical Impression: Kidney stone on right side Primary Care Provider: Dori Peters ED Provider: Isabelle Arambula Home Meds and New Rx's Prescriptions: New ondansetron 4 mg tablet,disintegrating 4 mg PO Q8H PRNQty: 7 0RF Continued acetaminophen 325 mg capsule 650 mg PO PRN PRN Mounjaro 7.5 mg/0.5 mL pen injector 7.5 mg subcut .weekly estradiol 0.01 % (0.1 mg/gram) cream 1 appful VAGINAL DAILY PRN Discharge Instructions Instructions: How to Strain Your Urine Additional Instructions: I encourage you to call [facility] on Wednesday to schedule follow-up appointment within the next week. I have also placed a referral to Dr. Puga's office, please call to set up a follow-up appointment. Please strain your urine every time you urinate to catch any fragments of stones. This will help with analysis of the composition of stone. Stay well-hydrated, drinking plenty of fluids throughout the day. You may wish to eat a gentle diet if your stomach is feeling upset. Use Zofran as prescribed for nausea/vomiting. Take 800 mg ibuprofen every 8 hours as needed for discomfort, I recommend initially starting uegyv-khl-wayii. Return to emergency care if you develop new severe abdominal pain, fevers, inability to hold down fluids or medication, inability to pass urine, or if you are very worried and need to be rechecked again immediately Referrals: [facility] [Provider Group] Dori Peters MD [Primary Care Provider] - [facility] General Date/Time Provider Initiated Documentation: 10/28/24 19:59. [facility] Narrative: Elenita is a 64year old female who presents to the emergency department today for evaluation of right flank pain that radiates around to the front. She reports that she woke up this morning not feeling well, has had a low appetite all day with feeling of pressure in her suprapubic area . Around 1 PM she developed chills and the flank pain, which dissipated without intervention, but returned again this evening. The pain is severe when it occurs. Denies recorded fever, chest pain, difficulty breathing, nausea/vomiting, abdominal pain, change in bowel function. She has a feeling like she would feel better if she had a bowel movement, but did have 1 this morning. She does report some discomfort with urination as well and decreased urine volume. No hematuria. Past medical history is significant for lymphoma admits remission x 7 years, COPD, alpha 1 antitrypsin deficiency, diverticulosis, and frequent UTIs. No history of kidney stones or pyelonephritis. She does have a history of multiple abdominal surgeries, including bilateral oophorectomy and colostomy that has been reversed. Physical exam reassuring. She is alert and interactive, no acute distress. No pain at this time. Abdomen is soft, nondistended, nontender to palpation with normoactive bowel sounds. No CVA tenderness. Easy work of breathing, lung sounds clear bilaterally. Normal heart sounds. Slightly tacky mucous membranes, white film on tongue. D/dx includes but is not limited to: Nephrolithiasis, including infected stone, diverticulitis, partial bowel obstruction, retrocecal appendicitis, pyelonephritis, UTI, neoplasm I independently interpreted the following tests: CBC, lipase reassuring. CMP notable for mild hypokalemia and elevated creatinine c/w MERISSA (1.2 today vs 0.9 on 08/28/24) UA reassuring,. Not consistent with UTI. CT scan remarkable for 4 mm distal right ureteral calculus with moderate hydronephrosis. While in the emergency department, Elenita received 1 L IV NS while NPO awaiting CT results. After receiving Zofran and Toradol, Elenita reports she has been comfortable has not had any pain or nausea. She was able to eat crackers and drink fadia lesley and water without any difficulty. History and presentation consistent with uncomplicated kidney stone, no indications at this time for hospitalization as patient does not have significant MERISSA, is able to hold down fluids p.o., and pain/nausea is able to be managed. Referral placed for urology follow-up. Patient to strain urine. Reviewed discharge instructions with patient, including symptomatic management and red flags indicating need for return to emergency care Related Data Home Medications ?Medication ?Instructions ?Recorded ?Confirmed acetaminophen 325 mg capsule 650 mg PO PRN PRN 05/05/22 10/28/24 tirzepatide 7.5 mg/0.5 mL 7.5 mg subcut .weekly 08/25/24 10/28/24 subcutaneous pen injector (Mounjaro) estradiol 0.01% (0.1 mg/gram) 1 appful vaginal DAILY PRN 10/28/24 10/28/24 vaginal cream ondansetron 4 mg disintegrating 4 mg PO Q8H PRN #7 tabs 10/28/24 tablet Previous Rx's ?Medication ?Instructions ?Recorded ondansetron 4 mg disintegrating 4 mg PO Q8H PRN #7 tabs 10/28/24 tablet Allergies Allergy/AdvReac Type Severity Reaction Status Date / Time amoxicillin (From Augmentin) Allergy Unknown Verified 10/28/24 19:56 clavulanic acid (From Allergy Unknown Verified 10/28/24 19:56 Augmentin) doxycycline AdvReac Intermediate Upset Verified 10/28/24 19:56 Stomach, vomiting General Stated Complaint: Urinary ERIKA: 3 Review of Systems Narrative: see HPI Exam Const General: cooperative, healthy appearing, comfortable, no acute distress, well developed and well groomed Nutritional Appearance: average body habitus and well nourished Orientation: alert and oriented x3 HENMT General nose exam: external nose normal Face and sinus: dry mucous membranes Mouth: tongue abnormal (white film on tongue) Resp Effort & Inspection: normal respiratory effort and able to speak in complete sentences Auscultation: clear to auscultation bilaterally Cardio Rate: regular rate Rhythm: regular rhythm GI Inspection: normal to inspection and non-distended Palpation: soft, no guarding, not rigid and nontender Auscultation: normal bowel sounds Back/Spine/Pelvis Back: no CVA tenderness Skin General skin exam: no rashes or lesions noted Course Vital Signs Vital signs: Vital Signs Temperature 36.9 C 10/28/24 19:51 Pulse 94 H 10/28/24 19:51 Respiratory Rate 20 10/28/24 19:51 Blood Pressure 174/81 H 10/28/24 19:51 Pulse Oximetry 97 10/28/24 19:51 Temperature 36.9 C 10/28/24 19:51 Temperature Source Oral 10/28/24 19:51 Pulse 94 H 10/28/24 19:51 Respiratory Rate 20 10/28/24 19:51 Respiratory Effort Normal, Non-Labored 10/28/24 19:55 Blood Pressure 174/81 H 10/28/24 19:51 Blood Pressure Position Supine 10/28/24 19:51 Pulse Oximetry 97 10/28/24 19:51 Oxygen Delivery Method Room Air 10/28/24 19:51 Oxygen Flow Rate 0 10/28/24 19:51 Pain Level 8 10/28/24 19:57 Medical Decision Making Quality:SDOH Health Related Social Needs: No Data to Display PFSH All Active Problems (Updated 10/28/24 @ 22:24 by Isabelle Crystal) Kidney stone on right side (Acute) COPD (chronic obstructive pulmonary disease) (Chronic) Pulmonary embolism (Chronic 04/17/22) 6 months of eliquis Insulin resistance (Acute) Obstructive airway disease (Acute) Class 2 severe obesity with serious comorbidity and body mass index (BMI) of 35.0 to 35.9 in adult (Acute) 04/16/22 [facility] [place] Weight and Wellness note Hypokalemia (Acute) Hx, per 08/2021 ? 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 Hx DesquInflammVaginitis, Clindamycin, 01/2021. Mantle cell lymphoma (Chronic 05/2017) S/p 6 cycles of [place] Regimen chemo and autologous stem cell transplant 01/16 Xyzjx-4-cakskjegnwp deficiency (Chronic) Prediabetes (Chronic) Generalized anxiety disorder (Chronic) Diverticulosis (Chronic) Sigmoid and descending colon. 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 salping-oopherectomy 03/2022 Dr. Cole Hallux valgus (acquired), right foot Depressive disorder 2017 son - overdose from opiates Essential hypertension Surgical History History of salpingoophorectomy (~03/2022) 03/2022 Dr. Cole S/P tonsillectomy and adenoidectomy (06/03/17) Developed.. and surgery helped ID lymphoma! ik/10/09/21 H/O bursectomy (~02/2006) Left knee S/P colonoscopy (06/08/16) H/O autologous stem cell transplant (01/25/18) For mantle cell lymphoma History of colostomy reversal (06/28/18) History of partial colectomy (08/14/17) D/t perforated diverticulitis S/P LEEP (loop electrosurgical excision procedure) (02/06/15) Family History Mother , at 54 of alpha-1 antitrypsin deficiency Olcwg-3-kkvintzdzhu deficiency Father Essential hypertension Hyperlipidemia Prostate cancer Son , at 28 of carfentanil overdose in 2017 Substance abuse Maternal Grandfather , at 58 of alpha-1 antitrypsin deficiency complications Mmkcn-7-hjsckxlaonn deficiency Liver failure Maternal Grandmother , at 85 Essential hypertension Heart disease Stroke Myocardial infarction Paternal Grandfather Essential hypertension Heart disease Hyperlipidemia Stroke Prostate cancer Paternal Grandmother No problems noted. Social History Smoking/Tobacco Use Status: Former Tobacco Use Quit Date: 11/29/90 Tobacco: How many years used: 15 Second Hand Exposure: No Smoking risk assessment performed?: Yes Alcohol Intake: current Alcohol Intake frequency: holidays/special occasions only Alcohol type: beer, wine and hard liquor Drug use: Never Substance use type: does not use Caregiver/Support person: No Household members: other Details: Pt's father and his (her aunt who dad after mom ) Housing: house Communication Needs: Corrective Lenses Education Level: college Details: 2017 BSN Do you need help understanding health information?: Never 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 Pets and animals: Yes Pets and animals: cat(s) and dog(s) Sexually active: No Do you think of yourself as: straight/heterosexual Current gender identity: female What is your relationship status?: How often do you talk on the phone with friends or family?: once per week How often do you get together with friends or relatives?: once per week How often do you attend yazidi or religion services?: decline to answer Do you belong to any clubs or organized social groups?: no Panel score (0-1 are the most socially isolated patients): 0 What type of physical activity do you participate in: walking Duration: 30-45 minutes/day Frequency: 3-4 times per week Swathi/Scientologist: Spiritism Special swathi needs: Yes Seatbelt use: always Helmet use: Yes Drive intox or ride w/intox special client bus driver: No Do you feel safe at home: Yes Do you feel safe in your relationship?: Yes Additional Social history: Patient currently is not in relationship. She has good family support and a network of friends. Female Reproductive History Menstrual Menopause type: natural Date of menopause: 11/29/07 History History 2 Para 1 Hx # Term Pregnancies Multiple births Hx # Pregnancies Ectopic pregnancies AB induced 1 Hx Number of Living Children 0 AB spontaneous
[2024-10-28 20:28] LABS: Abs Immature Grans 0.02 10^3/uL (0.0-0.06); Absolute Basophil Count 0.05 10^3/uL (0.0-0.2); Absolute Eosinophil Count 0.05 10^3/uL (0.0-0.7); Absolute Neutrophil Count 4.72 10^3/uL (1.2-6.7); Basophils % 0.6 %; Eosinophils % 0.6 %; HCT 44.1 % (36.0-46.0); HGB 15.1 g/dL (11.2-15.7); Immature Grans % 0.2 %; Lymphocytes % 37.8 %; MCH 32.6 pg (27.0-33.0); MCHC 34.2 % (32.0-36.0); MCV 95 fL (80-95); MPV 9.6 fL (8.0-11.0); Monocytes % 6.9 %; Neutrophils % 53.9 %; Platelet Count 241 10^3/uL (130-400); RBC 4.63 10^6/uL (3.93-5.22); RDW-SD 41.7 fL; WBC 8.74 10^3/uL (4.4-10.8)
[2024-10-28] MEDS: Normal Saline - Diluent 50 ML VIAL IJ (20:33)
[2024-10-28] MEDS: Omnipaque 350 MG/ML 100 ML BTL 75 ML IJ (20:34)
[2024-10-28 20:46] LABS: ALT 33 U/L (14-59); AST 35 U/L (15-37); Albumin 4.7 g/dL (3.4-5.0); Alkaline Phosphatase 100 U/L (46-116); Anion Gap 13.7 mmol/L (3-11); BUN 21 mg/dL (7-18); Bilirubin, Total 0.71 mg/dL (0.2-1.0); CO2 27.3 mmol/L (21.0-32.0); CREATININE 1.2 mg/dL (0.55-1.02); Chloride 104 mmol/L (98-107); Estimated GFR 50.55 (mL/min/1.73m2); Glucose 95 mg/dL (74-106); Lipase 34 U/L (<78); Potassium 3.3 mmol/L (3.5-5.1); Sodium 145 mmol/L (136-145); Total Protein 8.3 g/dL (6.4-8.2)
[2024-10-28 20:50] LABS: Calcium 9.6 mg/dL (8.5-10.1)
[2024-10-28 21:20] LABS: Bilirubin Negative (Negative); Blood Large (Negative); Clarity Clear (Clear); Glucose Negative (Negative); Ketones Trace mg/dL (Negative); Leukocyte Esterase Trace (Negative); Nitrite Negative (Negative); Urobilinogen 0.2 mg/dL (Up to 0.2); pH 6.5 (5-8)
[2024-10-28 21:26] LABS: Bacteria Negative HPF (Negative); C & S Indicated? No; Crystals Negative HPF (Negative); Epithelial Cells Rare HPF (Negative); Mucus Moderate (Negative); RBC >50 HPF (0-2); WBC 0-2 HPF (0-5)
--- NOTE | 2024-10-28 21:31 | DI.VRAD_ITS ---
PROCEDURE INFORMATION: Exam: CT Abdomen And Pelvis With Contrast Exam date and time: 10/28/2024 8:32 PM Age: 64 years old Clinical indication: Other: R flank pain radiating to front, +dysuria TECHNIQUE: Imaging protocol: Computed tomography of the abdomen and pelvis with contrast. Contrast material: OMNIPAQUE 350; Contrast volume: 75 ml; Contrast route: INTRAVENOUS (IV); COMPARISON: MR PELVIS WO/W 03/19/2021 10:32 AM FINDINGS: Lungs: Streaky and platelike atelectasis at the lung bases. Liver: Normal appearing liver. Gallbladder and biliary ducts: Moderate gallbladder distension. No calcified gallstones or biliary dilatation. Pancreas: Normal appearing pancreas. Spleen: Normal appearing spleen. Adrenal glands: Normal appearing adrenal glands. Kidneys and ureters: 4 mm distal right ureteral calculus with upstream ureterectasis, moderate hydronephrosis, periureteral edema, perinephric edema, and delay of the right nephrogram in keeping with obstructive uropathy. Nonobstructing bilateral renal calculi with the largest measuring 4 mm on the left. No left-sided hydronephrosis. No left-sided ureteral stones. Stomach and bowel: Stomach moderately distended with fluid. No small bowel dilatation to suggest obstruction. Normal-appearing colon. No evidence of diverticulitis or colitis. Prior sigmoid resection. Appendix: Normal appendix. Intraperitoneal space: No gross ascites or free air. Vasculature: Normal caliber abdominal aorta. Lymph nodes: No pathologically enlarged mesenteric, retroperitoneal, or pelvic sidewall lymph nodes. Urinary bladder: Urinary bladder collapsed and not well evaluated but grossly unremarkable, as seen. Reproductive: Anteverted uterus, partially obscured but normal in size. Ovaries not identified, obscured if present. Correlation with surgical history recommended. Bones/joints: Spinal degenerative change with anterior osteophytes at several levels. Soft tissues: No significant ventral or inguinal hernia. IMPRESSION: Obstructing 4 mm distal right ureteral calculus. Dictated and Authenticated by: Jason Main MD. Ordering:DELFINO Walton MD
[2024-10-28 21:35] VITALS: BP 151/75; PULSE 90; RESP 16; O2SAT 96
[2024-10-28 22:30] VITALS: BP 142/82; PULSE 79; RESP 16; O2SAT 96
[2024-10-28] MEDS: Ondansetron O.D.T. 4 MG TABEF, 3 TABS/BTL PO (22:33)
== END 2024-10-28 22:33 | disposition home or self-care (01) ==
PROVIDERS: Emergency Provider Nurse Practitioner Family; PCP Family Medicine
DX: R10.31 Right lower quadrant pain (principal); R11.0 Nausea; E88.01 Alpha-1-antitrypsin deficiency; Z85.72 Personal history of non-Hodgkin lymphomas; Z87.440 Personal history of urinary (tract) infections; Z87.19 Personal history of other diseases of the digestive system; J44.9 Chronic obstructive pulmonary disease, unspecified; N20.0 Calculus of kidney; R30.0 Dysuria
CPT/HCPCS: 36415; 51798; 80053; 83690; 96361; 96374; 96375; 99285; 74177; 81003; 81015; 85025; 99284; J1885; J2405; J3490

== ENCOUNTER 2024-11-01 13:02 | Outpatient (REF) | payer BC, SELFPAY ==
[2024-11-09 13:05] LABS: Source: Passed Stone
== END 2024-11-01 13:03 | disposition home or self-care (01) ==
LOC: NCHCN 13:02
PROVIDERS: PCP Family Medicine; Visit Provider Family Medicine
DX: N20.0 Calculus of kidney (principal)
CPT/HCPCS: 82365

== ENCOUNTER 2024-11-16 01:16 | Outpatient (CLI) | payer BC, SELFPAY ==
--- NOTE | 2024-11-16 | DI.DEXA_ITS ---
Exam(s) XR DEXA BONE DENSITY W/WO HOLLY EXAM: XR DEXA BONE DENSITY W/WO HOLLY CLINICAL HISTORY: ASYMPTOMATIC MENOPAUSAL STATE Z78.0 HYPOKALEMIA E87.6 TECHNIQUE: COMPARISON: No exams were available for comparison FINDINGS: Lateral Spine Image: Unremarkable. No compression deformities identified. Left hip: Total T-Score: 0.1 Total Z-Score: 1.3 T- and Z-scores: Within normal limits. Lumbar Spine: Total T-Score: 1.0 Total Z-Score: 2.7 T- and Z-scores: Within normal limits. IMPRESSION: No evidence of osteoporosis.
== END 2024-11-16 01:36 ==
LOC: DI 01:16
PROVIDERS: PCP Family Medicine; Visit Provider Family Medicine
DX: Z78.0 Asymptomatic menopausal state (principal); E87.6 Hypokalemia; Z13.820 Encounter for screening for osteoporosis
CPT/HCPCS: 77080

== ENCOUNTER 2024-12-29 00:33 | Outpatient (RCR) | payer BC, SELFPAY ==
[2024-12-29 10:34] LABS: Abs Immature Grans 0.02 10^3/uL (0.0-0.06); Absolute Basophil Count 0.04 10^3/uL (0.0-0.2); Absolute Eosinophil Count 0.05 10^3/uL (0.0-0.7); Absolute Lymphocyte Count 1.51 10^3/uL (1.2-3.4); Absolute Monocyte Count 0.63 10^3/uL (0.1-0.8); Absolute Neutrophil Count 3.37 10^3/uL (1.2-6.7); Basophils % 0.7 %; Eosinophils % 0.9 %; HCT 44.1 % (36.0-46.0); HGB 15.1 g/dL (11.2-15.7); Immature Grans % 0.4 %; Lymphocytes % 26.9 %; MCH 32.6 pg (27.0-33.0); MCHC 34.2 % (32.0-36.0); MCV 95 fL (80-95); MPV 9.3 fL (8.0-11.0); Monocytes % 11.2 %; Neutrophils % 59.9 %; Platelet Count 223 10^3/uL (130-400); RBC 4.63 10^6/uL (3.93-5.22); RDW 11.9 % (11.7-14.6); RDW-SD 42.1 fL; WBC 5.62 10^3/uL (4.4-10.8)
[2024-12-29 10:47] LABS: ALT 28 U/L (14-59); AST 23 U/L (15-37); Albumin 4.2 g/dL (3.4-5.0); Alkaline Phosphatase 92 U/L (46-116); BUN 15 mg/dL (7-18); Bilirubin, Total 0.71 mg/dL (0.2-1.0); CREATININE 1.1 mg/dL (0.55-1.02); Calcium 9.6 mg/dL (8.5-10.1); Chloride 106 mmol/L (98-107); Estimated GFR 56.11 (mL/min/1.73m2); Glucose 87 mg/dL (74-106); LDH 175 U/L (81-234); Sodium 144 mmol/L (136-145); Total Protein 7.5 g/dL (6.4-8.2)
== END 2024-12-29 23:59 | disposition home or self-care (01) ==
LOC: INF 00:33
PROVIDERS: Nurse Practitioner Adult Health; PCP Family Medicine; Visit Provider Internal Medicine Hematology & Oncology
DX: C83.18 Mantle cell lymphoma, lymph nodes of multiple sites (principal)
CPT/HCPCS: 36415; 80053; 83615; 85025

== ENCOUNTER 2025-04-26 02:40 | Outpatient (CLI) | payer BC, SELFPAY ==
--- NOTE | 2025-04-26 | DI.CT_ITS ---
Exam(s) CT NECK CHEST ABD PEL W EXAM: CT NECK CHEST ABD PEL W INDICATION: MANTLE CELL LYMPHOMA LN MULTI REGIONS, C83.18. COMPARISON: CT CT ABDOMEN PELVIS W from 03/14/[address] CHEST PE CTA from 04/30/[address] ABDOMEN PELVIS W from 10/28/2024 TECHNIQUE: Intravenous contrast administered: 150 mL Omnipaque- 350 Oral contrast was also administered for bowel opacification FINDINGS: CT SOFT TISSUES NECK WITH IV Contrast: VISUALIZED PARANASAL SINUSES: Unremarkable. NASOPHARYNX: Unremarkable ORODENTAL: Unremarkable. OROPHARYNX: Unremarkable. No masses evident. HYPOPHARYNX: Unremarkable. Valleculae and epiglottis and aryepiglottic folds appear normal. VOCAL CORDS: Unremarkable. No masses evident. Subglottic airway appears unremarkable. THYROID GLAND: Unremarkable. Normal size and no obvious nodules. SALIVARY GLANDS: Unremarkable. No significant findings in the parotid and submandibular glands. LYMPH NODES: There is no adenopathy evident in the neck and supraclavicular regions. OTHER: VISUALIZED LUNG APICES: No significant findings. CT CHEST WITH IV CONTRAST: Lungs: There are benign-appearing increased markings in both lung bases both anteriorly and posterior ly. No ominous pulmonary nodules and there are no pleural effusions. No significant focal findings in trachea and mainstem bronchi. Mediastinum: There is no hilar nor mediastinal adenopathy. No axillary nor supraclavicular adenopath y. Cardiac: Heart size normal. No pericardial effusion. Caliber of thoracic aorta is normal. Osseous: No fractures nor significant osseous lesions evident in the chest. CT ABDOMEN WITH IV CONTRAST: There is no ascites. Liver: There are no focal hepatic lesions nor dilatation of intrahepatic ducts. Biliary: No obvious gallstones. Gallbladder upper normal size. CBD is not dilated. Pancreas: Unremarkable. No masses nor calcifications in the pancreas. Pancreatic duct is upper norm al. There is no peripancreatic fluid. Spleen: Normal size. No lesions. Splenic and portal veins are patent. Adrenals: No adrenal masses Kidneys: There are few tiny nonobstructive calculi both kidneys. No significant cysts nor solid lesi ons. No hydronephrosis nor hydroureter. Abdominal aorta: Not enlarged. Iliac arteries also not enlarged. Anterior abdominal wall: No significant hernias. GI: The oral contrast has reached the rectum. There is no evidence of bowel obstruction. No evidenc e of appendicitis. No diverticulitis. There is again noted evidence of partial sigmoid resection. There is again noted a fluid-filled dens ity at this level, slightly larger than previous and presently measuring 3.[address] PELVIS WITH IV CONTRAST: Lymph nodes: There is no adenopathy around the aortic bifurcation nor along the iliac chains and ther e is no inguinal adenopathy. Reproductive: Uterus size is normal. Ovaries not identified. No obvious adnexal masses. Urinary bladder: Partially collapsed. No obvious abnormalities. Osseous: No fractures nor significant osseous lesions evident. IMPRESSION: 1. No significant findings in the neck 2. No significant intrathoracic findings. 3. Small nonobstructive calculi are again noted in both kidneys 4. There is evidence of previous partial sigmoid resection. There is a fluid-filled structure measu ring 3.4 x 2 cm in the region of the anastomosis, slightly larger than previous. This may be part of the anastomosis but cannot exclude abnormal fluid collection at this level. RADIATION DOSE DELIVERED: 1,078.32mGy.cm Total DLP DATA REPOSITORY: All CT scans at this facility are submitted to the National Radiology Data Registry (NRDR) Dose Index Registry (DIR) with the [employer] (ACR). RADIATION OPTIMIZATION: All CT scans at this facility use at least one of these dose optimization te chniques: automated exposure control; mA and/or kV adjustment per patient size (includes targeted exa ms where dose is matched to clinical indication); or iterative reconstruction.
[2025-04-26 12:15] LABS: Abs Immature Grans 0.01 10^3/uL (0.0-0.06); Absolute Basophil Count 0.04 10^3/uL (0.0-0.2); Absolute Eosinophil Count 0.08 10^3/uL (0.0-0.7); Absolute Lymphocyte Count 1.75 10^3/uL (1.2-3.4); Absolute Neutrophil Count 3.88 10^3/uL (1.2-6.7); Basophils % 0.6 %; Eosinophils % 1.3 %; HCT 40.2 % (36.0-46.0); HGB 13.9 g/dL (11.2-15.7); Immature Grans % 0.2 %; Lymphocytes % 27.5 %; MCH 32.9 pg (27.0-33.0); MCHC 34.6 % (32.0-36.0); MCV 95 fL (80-95); MPV 9.1 fL (8.0-11.0); Monocytes % 9.4 %; Platelet Count 228 10^3/uL (130-400); RBC 4.23 10^6/uL (3.93-5.22); RDW 12.9 % (11.7-14.6); WBC 6.36 10^3/uL (4.4-10.8)
[2025-04-26] MEDS: Barium Sulfate 2% W/V-Berry Smoothie 450 ML BTL PO ×2 (12:17→12:18)
[2025-04-26 12:36] LABS: ALT 22 U/L (14-59); AST 28 U/L (15-37); Albumin 4.1 g/dL (3.4-5.0); Alkaline Phosphatase 91 U/L (46-116); Anion Gap 6.8 mmol/L (3-11); BUN 21 mg/dL (7-18); Bilirubin, Total 0.7 mg/dL (0.2-1.0); CO2 27.2 mmol/L (21.0-32.0); CREATININE 0.9 mg/dL (0.55-1.02); Calcium 9.7 mg/dL (8.5-10.1); Chloride 105 mmol/L (98-107); Estimated GFR 71.39 (mL/min/1.73m2); Glucose 86 mg/dL (74-106); LDH 202 U/L (81-234); Potassium 4.2 mmol/L (3.5-5.1); Sodium 139 mmol/L (136-145); Total Protein 7.4 g/dL (6.4-8.2)
[2025-04-26] MEDS: Normal Saline - Diluent 50 ML VIAL IJ (14:08)
[2025-04-26] MEDS: Omnipaque 350 MG/ML 50 ML BTL IJ (14:09)
[2025-04-26] MEDS: Omnipaque 350 MG/ML 100 ML BTL IJ (14:10)
== END 2025-04-26 03:00 ==
LOC: DI 02:40
PROVIDERS: PCP Family Medicine; Visit Provider Nurse Practitioner Adult Health
DX: C83.18 Mantle cell lymphoma, lymph nodes of multiple sites (principal)
CPT/HCPCS: 70491; 74177; 80053; 71260; 83615; 85025; J3490; Q9967

== ENCOUNTER 2025-05-08 01:27 | Outpatient (CLI) | payer BC, SELFPAY ==
--- NOTE | 2025-05-08 | DI.MAMMO_ITS ---
Exam(s) MAMMO SCREENING EXAM: MAMMO SCREENING CLINICAL HISTORY: Screening, Z12.31. TECHNIQUE: Bilateral full field digital CC and MLO mammographic images were obtained with 3D tomosyn thesis and utilizing computer aided detection (CAD). COMPARISON: Prior mammograms were reviewed. FINDINGS: There has been no significant change in the appearance and distribution of the fibroglandular tissue. There are no CAD designations There are no new spiculated masses nor malignant appearing microcalcification groups. There is no significant architectural distortion nor skin thickening-retraction. IMPRESSION: No radiographic evidence of malignancy. BI-RADS Category 1 - Negative Breast Density - Category B - There are scattered areas of fibroglandular density. Breast density Category C or D implies that the patient has dense breast tissue. Dense breast tissue can make it harder to find cancer on a mammogram. Dense breast tissue is also associated with an incr eased risk of breast cancer. This information about the result of the mammogram report was provided to the patient to raise their awareness. Use this report when you speak with the patient about their risks for breast cancer, which includes their family history. At that time, you may recommend additional screening tests (Ultrasoun d or MRI) as these tests may add significant information. A negative radiographic report should not delay biopsy if a dominant or clinically suspicious mass is present. Up to ten percent of cancers are not identified on mammography. A negative report may reinforce clinical impression. Adenosis and dense breasts may obscure an underlying neoplasm. False positive reports average 6 to 10%. Patient will receive a letter notifying them of these results.
== END 2025-05-08 01:47 ==
LOC: DI 01:27
PROVIDERS: PCP Family Medicine; Visit Provider Nurse Practitioner Family
DX: Z12.31 Encounter for screening mammogram for malignant neoplasm of breast (principal); R92.323 Mammographic fibroglandular density, bilateral breasts
CPT/HCPCS: 77063; 77067

== ENCOUNTER 2025-08-30 10:46 | Outpatient (CLI) | payer BC, SELFPAY ==
[2025-08-30 10:52] LABS: Abs Immature Grans 0.01 10^3/uL (0.0-0.06); HCT 41.6 % (36.0-46.0); HGB 14.0 g/dL (11.2-15.7); Immature Grans % 0.2 %; MCH 31.5 pg (27.0-33.0); MCHC 33.7 % (32.0-36.0); MCV 94 fL (80-95); MPV 9.1 fL (8.0-11.0); Platelet Count 223 10^3/uL (130-400); RBC 4.45 10^6/uL (3.93-5.22); RDW 12.2 % (11.7-14.6); RDW-SD 42.2 fL; WBC 6.56 10^3/uL (4.4-10.8)
[2025-08-30 11:13] LABS: ALT 26 U/L (14-59); AST 25 U/L (15-37); Albumin 4.2 g/dL (3.4-5.0); Alkaline Phosphatase 101 U/L (46-116); Anion Gap 8.1 mmol/L (3-11); BUN 21 mg/dL (7-18); Bilirubin, Total 0.7 mg/dL (0.2-1.0); CO2 27.9 mmol/L (21.0-32.0); Calcium 9.6 mg/dL (8.5-10.1); Chloride 105 mmol/L (98-107); Estimated GFR 62.52 (mL/min/1.73m2); Glucose 91 mg/dL (74-106); LDH 190 U/L (81-234); Potassium 4.3 mmol/L (3.5-5.1); Sodium 141 mmol/L (136-145); Total Protein 7.6 g/dL (6.4-8.2)
== END 2025-08-30 10:47 | disposition home or self-care (01) ==
LOC: LBO 10:47
PROVIDERS: PCP Family Medicine; Visit Provider Nurse Practitioner Adult Health
DX: C83.18 Mantle cell lymphoma, lymph nodes of multiple sites (principal)
CPT/HCPCS: 36415; 80053; 83615; 85025